=== PATIENT | male | born 1950 | race Caucasian/White ===

== ENCOUNTER 2019-01-06 20:00 | Inpatient (IN) | payer OTHER ==
--- NOTE | 2019-01-06 20:05 | PDOC ---
Rapid Medical Evaluation Time Seen by Provider: 01/06/19 20:03 Medical Evaluation: 01/06/19 20:03 I have performed a brief in-person evaluation of this patient. The patient presents with a chief complaint of: shortness of breath Pertinent physical exam findings:stable and in NAD, non-focal I have ordered the following:labs, ekg The patient will proceed to the ED for further evaluation.
--- NOTE | 2019-01-06 20:26 | PDOC ---
History of Present Illness - General Chief Complaint: Chest Pain Stated Complaint: Chest Pain Time Seen by Provider: 01/06/19 20:03 History Source: Patient - History of Present Illness Initial Comments: 01/06/19 20:41 The patient is a 68 year old male with no reported PMH who presents with 4 month h/o worsening shortness of breath and a two week h/o B/L LE edema. 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 Prior to 4 months ago patient had no significant medical history. Denies any chest pain, lightheadedness, diaphoresis, nausea. Follows with a gear grinding machine operator, Dr. Mitchell ([place]) as his primary and was isntructe to come to our ED becuse Dr. Mitchell is colleagues with Dr. Mai. Also c/o of decreased sleep since symptom onset, sleeps supine with one pillow NKDA Surgical: appendectomy Social: social alcohol, lifetime non-smoker, denies other toxic habits PMD: Dr. Mitchell As per EMR, patient has no prior evaluation in our ED Past History - Past Medical History Allergies/Adverse Reactions: Allergies Allergy/AdvReac Type Severity Reaction Status Date / Time No Known Allergies Allergy Verified 01/06/19 20:07 Home Medications: Ambulatory Orders NK [No Known Home Medication] 01/06/19 COPD: No - Suicide/Smoking/Psychosocial Hx Smoking History: Unknown if ever smoked Have you smoked in the past 12 months: No Information on smoking cessation initiated: No Hx Alcohol Use: No Drug/Substance Use Hx: No Review of Systems - Review of Systems Constitutional: No: Chills, Fever HEENTM: No: Blurred Vision, Recent change in vision Respiratory: Yes: Shortness of Breath. No: Cough, Wheezing Cardiac (ROS): Yes: Palpitations. No: Chest Pain, Lightheadedness, Syncope ABD/GI: No: Constipated, Diarrhea, Nausea, Vomiting *Physical Exam - Vital Signs Last Vital Signs Temp Pulse Resp BP Pulse Ox 98.0 F 61 16 132/88 100 01/06/19 20:04 01/06/19 20:04 01/06/19 20:04 01/06/19 20:04 01/06/19 20:04 - Physical Exam Comments: 05/21/19 21:10 Triage VS reviewed Awake, alert, pleasant HEENT: mild scleral icterus CV: Irregularly irregular Extremity: B/L LE 4+ pitting edema Abdomen: soft, protuberatin, (+) bowel sounds, non-tender Respiratory: CLTA B/L, non-labored respiration on 3 L NC O2 ED Treatment Course - LABORATORY CBC & Chemistry Diagram: 01/09/19 06:19 01/09/19 06:19 Medical Decision Making - Medical Decision Making 01/06/19 21:00 68 year old male with 3 month h/o worsening shortness of breath and two week h/ o B/L LE edema. Reports h/o toxic exposure including termite spray and toxic dehumdifier. AFib with RVR, other VS unremarkable. Mild scleral icterus, hepatosplenomegaly on PE. DDx includes R heart strain vs. new onset CHF vs. r/ o ACS. 01/06/19 21:09 S/p Dilt 130's-140's 01/06/19 21:09 01/06/19 22:10 BNP new onset CHF Trop - likely 2/2 to ischemic demand Cr 1.4 Likely pre-renal 01/06/19 22:28 Case d/w Dr. Meza - will admit Patient @ [facility] 01/06/19 22:58 S/p 10 Dilt, patient remains AFib w/RVR 140's-150's BP 148/106 Will give addition 20 mg Dilt, paged hospitalist for ? Drip and consider unit admission *DC/Admit/Observation/Transfer Diagnosis at time of Disposition: Shortness of breath - Discharge Dispostion Condition at time of disposition: Fair Decision to Admit order: Yes - Referrals - Patient Instructions - Post Discharge Activity
[2019-01-06] MEDS ORDERED: dilTIAZem HCL 50 MG/10 ML - 10 ML VIAL IVPUSH ONE ×2 (20:39→23:00)
[2019-01-06] MEDS ORDERED: dilTIAZem HCL 125 MG/25 ML - 25 ML VIAL ONE (20:45)
[2019-01-06 21:22] LABS: BASO % 0.7 % (0-2.0); EOS % 1.2 % (0-4.5); HEMATOCRIT 40.6 % (35.4-49); HEMOGLOBIN 13.3 GM/dL (11.7-16.9); LYMPH % 21.9 % (8-40); MCH 32.5 pg (25.7-33.7); MCHC 32.8 g/dl (32.0-35.9); MEAN PLT VOLUME 12.2 fl (7.5-11.1); MONO % 11.4 % (3.8-10.2); NEUT % 64.8 % (42.8-82.8); RDW 15.6 % (11.9-15.9); WHITE BLOOD COUNT 6.3 K/mm3 (4.0-10.0)
[2019-01-06 21:35] LABS: INR 1.38 (0.83-1.09); PROTHROMBIN TIME (PATIENT) 16.3 SEC (9.7-13.0)
[2019-01-06 21:38] LABS: ACTIVATED PTT 35.5 SECONDS (25.2-36.5)
[2019-01-06 22:01] LABS: ALBUMIN 3.3 g/dl (3.4-5.0); BILIRUBIN,TOTAL 1.8 mg/dL (0.2-1); CALCIUM 9.1 mg/dL (8.5-10.1); CREATININE 1.4 mg/dL (0.55-1.3); N-TERMINAL BNP 8151.8 pg/ml (5-125); POTASSIUM 4.5 mmol/L (3.5-5.1); TOT PROT 6.8 g/dl (6.4-8.2)
[2019-01-06] MEDS ORDERED: FUROSEMIDE 40 MG/4 ML INJECTABLE VIAL IVPUSH ONE (22:08)
[2019-01-06] MEDS ORDERED: FUROSEMIDE 40 MG/4 ML INJECTABLE VIAL ONE (22:11)
[2019-01-06 22:34] LABS: PLATELET COUNT 141 K/MM3 (134-434)
[2019-01-06 22:35] LABS: PLATELET ESTIMATE ADEQUATE
--- NOTE | 2019-01-06 22:52 | PDOC ---
Documentation entered by Pankaj De La Cruz SCRIBE, acting as scribe for Mirian Horn DO. Mirian Horn DO: This documentation has been prepared by the Jono mckee Matthew, SCRIBE, under my direction and personally reviewed by me in its entirety. I confirm that the documentation accurately reflects all work, treatment, procedures, and medical decision making performed by me. Attending Attestation - Resident Resident Name: Steff Aldana - ED Attending Attestation I have performed the following: I have examined & evaluated the patient, The case was reviewed & discussed with the resident, I agree w/resident's findings & plan - HPI HPI: 01/06/19 21:19 Patient is a 68 year old male with no significant past medical history who presents to the ED with complaints of shortness breath that began x4 months ago. Patient reports experiencing increased shortness of breath shortly after using a home termite hall cleaner followed by a home air purifier that he believed both to be toxic. He reports experiencing associated symptoms of bilateral lower extremity edema that he states began x2 weeks ago. Patient states having no significant past medical history or symptoms prior to termite and air purifier exposure 4 months ago. Follows with a electrical technician, Dr. Mitchell ([place]) as his primary and was instructed to come to the ED for further evaluation because Dr. Mitchell is colleagues with Dr. Serrano. Denies chest pain, sob. Denies nausea, vomiting. Denies contact with sick individuals, out of state travelling. Denies dysuria, hematuria. Denies constipation, diarrhea. Denies any other symptoms. Allergies: NKDA Social history: No smoking. No alcohol. No illicit drugs. Surgical history: None PMD: Dr. Keke Mortensen - Physicial Exam PE: 01/06/19 21:19 Agree with residents Physical Exam. - Critical Care Time Total Critical Care Time: 60 Critical Care Statement: The care of this patient involved high complexity decision making to prevent further life threatening deterioration of the patient 's condition and/or to evaluate & treat vital organ system(s) failure or risk of failure. - Medical Decision Making 01/06/19 22:38 68-year-old male complaining of increasing swelling to the lower extremities as well as shortness of breath and palpitations Patient found to be in a new onset rapid A. fib on arrival Exam and workup consistent with new onset CHF as well Lasix 60 mg IV push given Cardizem 10 mg IV push given with little effect on patient's rate Plan for continued telemetry and rate control as well as admission
[2019-01-06] MEDS ORDERED: METOPROLOL TARTRATE 5 MG/5 ML VIAL IVPUSH ONE (23:07)
[2019-01-06 23:54] LABS: PH,URINE 5.5 (5.0-8.0); URINE APPEARANCE CLEAR; URINE BILIRUBIN NEGATIVE (NEGATIVE); URINE COLOR YELLOW; URINE GLUCOSE (UA) NEGATIVE (NEGATIVE); URINE KETONE NEGATIVE (NEGATIVE); URINE LEUK ESTERASE NEGATIVE (NEGATIVE); URINE NITRITE NEGATIVE (NEGATIVE); URINE PROTEIN NEGATIVE (NEGATIVE); URINE UROBILINOGEN 0.2 mg/dL (0.2-1.0)
--- NOTE | 2019-01-07 00:18 | PN ---
Teaching Attending Note Name of Resident: Markell Meza ATTENDING PHYSICIAN STATEMENT I saw and evaluated the patient. I reviewed the resident's note and discussed the case with the resident. I agree with the resident's findings and plan as documented. SUBJECTIVE: Seen and examined; please refer to resident note for further historical information. He has a history of erratic heart beat and "valve issue" but does not know what valve and has never been on rate control or AC. Sent in by PCP due to large LE edema and jaundice. He has no history of heart failure. He is near anasarcic with worsening abdominal distention for the past 2+ weeks and was found to be in Afib with RVR to the 150s. ER gave lasix, diltiazem, called medicine for admission. HR has proven difficult to control. 10 sys ROS done and negative aside from HPI PMH, PSH, FH, SH reviewed Home Medications Medication Instructions Recorded NK [No Known Home Medication] 01/06/19 OBJECTIVE: VS, labs, imaging reviewed NAD, AAO, resting comfortably in bed Irregularly irregular with tachycardia and systolic murmur noted Near anasarca with pitting edema sym b/l Distended abdomen, NT, +BS Lungs with crackles throughout lower half, w/ sym exp CN2-12 wnl, no fnd Normal mood, appropriate behavior Echo Pending CXR with cardiomegaly and stereotyped CHF changes US abd pending EKG with Afib with RVR, potential Q waves V1 V2 V3 ER completed bedside echo; no effusion ASSESSMENT AND PLAN: Patient presents to the ER with new-onset CHF and Afib with RVR; has history of valve issue and was told that he had afib years ago but was not treated. 1) New-onset CHF -Etiology may be valvular given his history but Q waves noted on initial EKG over anteroseptal leads; need to check echo to elucidate the nature of his CHF. With possibility of CAD will check TSH/A1c/B12 as well. He has never had a cath , etc. -Lasix IV 40 BID; holding off on SHANNAN for now until EF is known, etc.. He is on BB for his Afib (MT which can be converted to MS for GDMT prior to DC). -Fluid and salt restriction; optimize K and Mg. Strict Is and Os and QD weights. -Cardiology consulted; appreciate expert opinion. 2) Atrial fibrillation -CHADSVASC is 2 and HAS-BLED is 1; endorses use of AC. Will do lovenox and followup on echo; he has a possibility of this being valvular afib so PO agent choice should reflect that. Monitor CrCl given FRANKIE (CrCl >30 with 1.4 Cr) -Stop diltiazem given evidence of systolic dysfunction; will use IV metoprolol tartrate to control HR. Pushing 5 now and will start with 25 PO BID and titrate up as needed. -Followup cardiology recs 3) Elevated bilirubin, mild jaundice -Checking liver US; suspect congestion could be playing a role. Fractionate bilirubin and trend CMP. -Normal AST/ALT with slight elevation of alk phos. He denies drinking and states he had a negative hepatitis test some time ago (can recheck). No abdominal pain. Check GGT and followup duct size. -Low alb noted 4) Troponemia -No chest pain or sudden onset SOB; less likely ACS and more likely rate- related subendocardial ischemia. -Trend. Followup CV recs. On tele. 5) FRANKIE -Baseline unknown but no documented hx CKD. 1.4 Cr today; given his history with 2 weeks of worsening massive fluid overload I am suspicious of potential Type I Cardiorenal syndrome. He needs diuresis for his CHF so will monitor renal function closely. If improves with diuresis would imply congestive process. -Check FeUrea (no urine obtained prior to lasix dose) 6) Low albumin -Checking prealbumin 7) Distended Abd -I suspect ascites; confirm with US and consider dx para Full Code
--- NOTE | 2019-01-07 00:36 | HP ---
CHIEF COMPLAINT: PCP: Dr. Mitchell HISTORY OF PRESENT ILLNESS: Patient is a 68 yo M with a PMHx with a history of an "erratic heart beat" and "valve issue, presented to the ED because of worsening SOB for 4 months and B/L LE edema over the last 2 weeks. Prior to 4 months ago, patient says he was normal with no issues. He denies a history of CHF. He says he was never on any rate control or anticoagulation. He went to his PCP, Dr. Mitchell, for the edema and yellowing of skin, who sent him to [facility] for admission. In the ER he was found to be in Afib with RVR in the 150s. He was given 60mg of Lasix, total 30mg of Diltiazem with some improvement in HR. CXR revealed cardiomegaly, diffuse pulmonary congestion and possible pleural effusions. He currently denies chest pain, pain, dizziness, headaches, headaches, fevers, chills, cough, urinary changes. Recent Travel: denies PAST MEDICAL HISTORY: per HPI Social History: Smoking: nonsmoker Alcohol: occasionally Drugs: denies Family History: Says he has a family history of heart valve issues including daughter who had surgery at a young age. Allergies No Known Allergies Allergy (Verified 01/06/19 20:07) HOME MEDICATIONS: Home Medications Medication Instructions Recorded NK [No Known Home Medication] 01/06/19 REVIEW OF SYSTEMS CONSTITUTIONAL: Absent: fever, chills, diaphoresis, generalized weakness, malaise, loss of appetite, weight change HEENT: Absent: rhinorrhea, nasal congestion, throat pain, throat swelling, difficulty swallowing, mouth swelling, ear pain, eye pain, visual changes CARDIOVASCULAR: peripheral edema Absent: chest pain, syncope, palpitations, irregular heart rate, lightheadedness RESPIRATORY: sob, dyspnea with exertion Absent: cough, orthopnea, wheezing, stridor, hemoptysis GASTROINTESTINAL: Absent: abdominal pain, abdominal distension, nausea, vomiting, diarrhea, constipation, melena, hematochezia GENITOURINARY: Absent: dysuria, frequency, urgency, hesitancy, hematuria, flank pain, genital pain MUSCULOSKELETAL: Absent: myalgia, arthralgia, joint swelling, back pain, neck pain SKIN: Absent: rash, itching, pallor HEMATOLOGIC/IMMUNOLOGIC: Absent: easy bleeding, easy bruising, lymphadenopathy, frequent infections ENDOCRINE: Absent: unexplained weight gain, unexplained weight loss, heat intolerance, cold intolerance NEUROLOGIC: Absent: headache, focal weakness or paresthesias, dizziness, unsteady gait, seizure, mental status changes, bladder or bowel incontinence PSYCHIATRIC: Absent: anxiety, depression, suicidal or homicidal ideation, hallucinations. PHYSICAL EXAMINATION Vital Signs - 24 hr 01/06/19 01/06/19 01/06/19 20:04 21:36 21:49 Temperature 98.0 F Pulse Rate 61 Pulse Rate [ 120 H 110 H Apical] Respiratory 16 20 20 Rate Blood Pressure 132/88 Blood Pressure 126/58 L 107/88 [Left Arm] O2 Sat by Pulse 95 95 Oximetry (%) 01/06/19 23:59 Temperature Pulse Rate Pulse Rate [ Apical] Respiratory Rate Blood Pressure Blood Pressure 113/96 [Left Arm] O2 Sat by Pulse Oximetry (%) GENERAL: obese in NAD, comfortable HEAD: Normal with no signs of trauma. EYES: mild scleral icterus EARS, NOSE, THROAT: oropharynx clear without exudates. Moist mucous membranes. NECK:supple without lymphadenopathy, JVD, or masses. LUNGS: diffuse crackles in b/l lower lobes HEART: irregular rhythm, + systolic murmur ABDOMEN: obese, distended abdomen, NT EXTREMITIES: 2+ pulses, 3+ pitting edema b/l LE. near anasarca NEUROLOGICAL: Cranial nerves II-XII intact. Normal speech. Normal gait. PSYCHIATRIC: Cooperative. Good eye contact. Appropriate mood and affect. Laboratory Results - last 24 hr 01/06/19 01/06/19 01/06/19 20:34 20:34 20:34 WBC 6.3 RBC 4.10 Hgb 13.3 Hct 40.6 MCV 99.0 H MCH 32.5 MCHC 32.8 RDW 15.6 Plt Count 141 MPV 12.2 H Absolute Neuts (auto) 4.1 Neutrophils % 64.8 Lymphocytes % 21.9 Monocytes % 11.4 H Eosinophils % 1.2 Basophils % 0.7 Nucleated RBC % 0 Platelet Estimate Adequate Platelet Comment No clumping noted PT with INR 16.30 H INR 1.38 H PTT (Actin FS) 35.5 Sodium 139 Potassium 4.5 Chloride 107 Carbon Dioxide 24 Anion Gap 8 BUN 23 H Creatinine 1.4 H Est GFR (CKD-EPI)AfAm 59.41 Est GFR (CKD-EPI)NonAf 51.26 Random Glucose 93 Calcium 9.1 Total Bilirubin 1.8 H AST 24 ALT 27 Alkaline Phosphatase 124 H Creatine Kinase Troponin I B-Natriuretic Peptide 8151.8 H Total Protein 6.8 Albumin 3.3 L 01/06/19 20:34 WBC RBC Hgb Hct MCV MCH MCHC RDW Plt Count MPV Absolute Neuts (auto) Neutrophils % Lymphocytes % Monocytes % Eosinophils % Basophils % Nucleated RBC % Platelet Estimate Platelet Comment PT with INR INR PTT (Actin FS) Sodium Potassium Chloride Carbon Dioxide Anion Gap BUN Creatinine Est GFR (CKD-EPI)AfAm Est GFR (CKD-EPI)NonAf Random Glucose Calcium Total Bilirubin AST ALT Alkaline Phosphatase Creatine Kinase 117 Troponin I 0.12 H B-Natriuretic Peptide Total Protein Albumin ASSESSMENT/PLAN: 68 yo M with a PMHx with a history of an "erratic heart beat" and "valve issue, presented to the ED because of worsening SOB and edema admitted for Chf and a- fib. #New Onset CHF -CXR with pulmonary congestion and cardiomegaly -1x Lasix 60mg given in ED -Continue Lasix 40mg BID IV -Cardio consulted: Dr. Serrano -Echo -obtain records from PCP in AM -Etiology may be valvular given his history. -EKG with Afib with RVR, potential Q waves V1 V2 V3 (anteroseptal leads) -strict i/o's, daily weight -Fluid and salt restriction #A-fib -Chadvasc 2, Has-bled 1 -start lovenox 110mg BID for AC until echo completed and read -Follow up echo. -Start Lopressor 25mg BID -Give lopressor 5mg IV as needed -Stop Diltiazem, given this may be systolic dysfunction. #Elevated bilirubin/Jaundice -likely congestion from new CHF -FU RUQ U/S -FU GGT, fractionated bilirubin -denies drinking. #Tropinemia -no chest pain, or sudden SOB, less likely ACS -likely demand -will order 2nd set -Tele #FRANKIE -unknown baseline -Today 1.4 -Likely cardiorenal syndrome if acute. -IV lasix 40mg BID -Urine lytes, urea -monitor cr #Hypoalbuminemia -FU prealbumin #FEN -fluid restrict -monitor -sodium diet #DVT ppx -lovenox dispo: tele Visit type - Emergency Visit Emergency Visit: Yes ED Registration Date: 01/07/19 Care time: The patient presented to the Emergency Department on the above date and was hospitalized for further evaluation of their emergent condition. - New Patient This patient is new to me today: Yes Date on this admission: 01/08/19 - Critical Care Critical Care patient: No
[2019-01-07] MEDS ORDERED: ENOXAPARIN NA (PORCINE) 100 MG/1 ML DISP.SYRIN SQ ONE (01:11)
[2019-01-07] MEDS ORDERED: METOPROLOL TARTRATE 25 MG TABLET (FP) ONE ×2 (01:11→22:16)
[2019-01-07] MEDS: ENOXAPARIN NA (PORCINE) 120 MG/0.8 ML DISP.SYRIN SQ SCH ×2 (01:16→09:57)
[2019-01-07] MEDS: METOPROLOL TARTRATE 25 MG TABLET (FP) PO SCH ×4 (01:16→22:20)
[2019-01-07] MEDS ORDERED: FUROSEMIDE 40 MG/4 ML INJECTABLE VIAL ONE (06:24)
[2019-01-07] MEDS: FUROSEMIDE 40 MG/4 ML INJECTABLE VIAL IVPUSH SCH ×2 (06:27→14:49)
[2019-01-07 06:44] LABS: BASO % 0.8 % (0-2.0); EOS % 1.7 % (0-4.5); HEMATOCRIT 41.5 % (35.4-49); LYMPH % 20.6 % (8-40); MCH 32.9 pg (25.7-33.7); MCHC 33.7 g/dl (32.0-35.9); MEAN CELL VOLUME 97.6 fl (80-96); MEAN PLT VOLUME 11.3 fl (7.5-11.1); MONO % 11.3 % (3.8-10.2); NEUT % 65.6 % (42.8-82.8); PLATELET COUNT 142 K/MM3 (134-434); RBC 4.25 M/mm3 (4.00-5.60); RDW 15.9 % (11.9-15.9); WHITE BLOOD COUNT 6.7 K/mm3 (4.0-10.0)
[2019-01-07 07:20] LABS: ALBUMIN 3.5 g/dl (3.4-5.0); BILIRUBIN,TOTAL 2.1 mg/dL (0.2-1); CALCIUM 9.1 mg/dL (8.5-10.1); CREATININE 1.3 mg/dL (0.55-1.3); PHOSPHOROUS 4.5 mg/dL (2.5-4.9); POTASSIUM 3.9 mmol/L (3.5-5.1); TOT PROT 7.1 g/dl (6.4-8.2)
[2019-01-07] MEDS ORDERED: METOPROLOL TARTRATE 5 MG/5 ML VIAL IVPUSH PRN (08:50)
--- NOTE | 2019-01-07 11:03 | CON.CARD ---
Consult Consult Specialty:: Cardiology Referred by:: Hospitalist Reason for Consultation:: Cardiac evaluation - History of Present Illness Chief Complaint: Shortness of breath History of Present Illness: Patient is a 68 year old male with no significant PMH that he is reporting who presents to [facility] referred by his PMD (Al Mortensen MD in [place]) for evaluation of shortness of breath. 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 He states that he was asymptomatic 4 months ago, but lately it has gotten worse. He denies chest pain, but complains of intermittent palpitations. ECG and monitor reveals atrial fibrillation with RVR at 120-130 bpm. He denies paroxysmal nocturnal dyspnea or orthopnea. He denies fever or chills. He denies nausea, vomiting, diarrhea or abdominal pain. He denies headache or lightheadedness. - History Source History Provided By: Patient, Medical Record Limitations to Obtaining History: No Limitations - Alcohol/Substance Use Hx Alcohol Use: No History of Substance Use: reports: None - Smoking History Smoking history: Unknown if ever smoked Have you smoked in the past 12 months: No Home Medications - Allergies Allergies/Adverse Reactions: Allergies Allergy/AdvReac Type Severity Reaction Status Date / Time No Known Allergies Allergy Verified 01/06/19 20:07 - Home Medications Home Medications: Ambulatory Orders NK [No Known Home Medication] 01/06/19 Family Disease History - Family Disease History Other Family History: ? history of heart valve surgery Review of Systems - Review of Systems Constitutional: denies: Chills, Fever Cardiovascular: reports: Palpitations, Shortness of Breath. denies: Chest Pain Respiratory: reports: SOB, SOB on Exertion. denies: Cough, Hemoptysis, Orthopnea, PND, Wheezing Gastrointestinal: denies: Abdominal Pain, Constipation, Diarrhea, Melena, Nausea , Rectal Bleeding, Vomiting Genitourinary: denies: Dysuria, Hematuria Musculoskeletal: denies: Back Pain, Joint Pain Neurological: denies: Dizziness, Headache, Seizure, Syncope Vital Signs: Vital Signs Temperature 98.0 F 01/06/19 20:04 Pulse Rate 103 H 01/07/19 04:47 Respiratory Rate 01/07/19 02:00 Blood Pressure 110/82 01/07/19 04:47 O2 Sat by Pulse Oximetry (%) 100 01/07/19 04:47 Eyes: Yes: PERRL HENT: Yes: Atraumatic Neck: Yes: Supple Respiratory: Yes: Diminished Gastrointestinal: Yes: Normal Bowel Sounds, Soft. No: Tenderness Cardiovascular: Yes: Tachycardia, Pulse Irregular JVD: No PMI: Non-Displaced Heart Sounds: Yes: S1, S2. No: Gallop Murmur: Yes: Systolic Murmur, Grade 1 Edema: No - Other Data Labs, Other Data: CBC, BMP 01/07/19 06:00 01/07/19 06:00 INR, PTT INR 1.38 (0.83-1.09) H 01/06/19 20:34 Troponin, BNP 01/06/19 01/06/19 01/07/19 20:34 20:34 02:46 Troponin I 0.12 H 0.15 H B-Natriuretic Peptide 8151.8 H Laboratory Results - last 24 hr 01/07/19 01/08/19 01/08/19 19:45 05:30 05:30 PTT (Actin FS) 70.6 H 63.8 H Sodium 142 Potassium 3.3 L Chloride 106 Carbon Dioxide 28 Anion Gap 8 BUN 20 H Creatinine 1.2 Est GFR (CKD-EPI)AfAm 71.58 Est GFR (CKD-EPI)NonAf 61.76 Random Glucose 74 Calcium 8.4 L Phosphorus 4.5 Magnesium 2.1 Atrial fibrillation with PVCs Echo: Pending Imaging - Results Chest X-ray: Report Reviewed (Pulmonary congestion) Ultrasound: Report Reviewed (No DVT) EKG: Report Reviewed Problem List - Problems (1) Atrial fibrillation Code(s): I48.91 - UNSPECIFIED ATRIAL FIBRILLATION Qualifiers: Atrial fibrillation type: unspecified Qualified Code(s): I48.91 - Unspecified atrial fibrillation (2) Dyspnea Code(s): R06.00 - DYSPNEA, UNSPECIFIED Qualifiers: Dyspnea type: unspecified Qualified Code(s): R06.00 - Dyspnea, unspecified (3) CHF (congestive heart failure) Code(s): I50.9 - HEART FAILURE, UNSPECIFIED Qualifiers: Heart failure type: unspecified Heart failure chronicity: unspecified Qualified Code(s): I50.9 - Heart failure, unspecified Assessment/Plan 1. Dyspnea due to CHF and pleural effusion +/- reactive airway disease 2. Acute on chronic LV systolic +/- diastolic failure 3. AF with RVR PLAN: 1. Would give IV Heparin (protocol) and then eventually start oral anticoagulant. Suggest Eliquis 5 mg BID 2. Beta melanie - Metoprolol Tartrate to be uptitrated for rate control 3. Echocardiography to assess LV/RV and valvular function 4. If patient remains in AF, may consider LISANDRA guided synchronized cardioversion 5. Further cardiac work up to follow pending above echocardiography result Further plans are to follow Francisco Martínez MD
[2019-01-07] MEDS ORDERED: HEPARIN NA (PORCINE) 5,000 UNITS/ML 1ML VIAL IVPUSH PRN ×2 (11:04)
[2019-01-07 11:06] LABS: BILIRUBIN,DIRECT 0.5 mg/dL (0.0-0.2)
[2019-01-07] MEDS ORDERED: HEPARIN INFUSION - 25,000 UNITS/500 ML INFUS.BAG IVPB ONE (11:44)
[2019-01-07] MEDS: HEPARIN INFUSION - 25,000 UNITS/500 ML INFUS.BAG IVPB SCH (11:50)
--- NOTE | 2019-01-07 12:58 | EKG ---
Test Reason : Blood Pressure : / mmHG Vent. Rate : 153 BPM Atrial Rate : 125 BPM P-R Int : 000 ms QRS Dur : 088 ms QT Int : 312 ms P-R-T Axes : 000 -24 097 degrees QTc Int : 498 ms ATRIAL FIBRILLATION WITH RAPID VENTRICULAR RESPONSE WITH PREMATURE VENTRICULAR OR ABERRANTLY CONDUCTED COMPLEXES SEPTAL INFARCT , AGE UNDETERMINED ABNORMAL ECG NO PREVIOUS ECGS AVAILABLE Confirmed by ANDREAS JJ MD ([id number]) on 01/07/2019 12:57:37 PM Referred By: Confirmed By:ANDREAS JJ MD
--- NOTE | 2019-01-07 15:08 | PN ---
Physical Exam: SUBJECTIVE: Patient seen and examined. Pt. denies chest pain. Pt. endorses difficulty breathing that has been getting progressively worse for 3 months. Pt. states he sleeps with 2 pillows and feels short of breath after climbing 1 flight of stairs. Pt. states the swelling in his lower extremities started 15 days ago. Pt. states the jaundice started around the same time. Pt. states the jaundice has happened before when he was 15 which self resolved. OBJECTIVE: Vital Signs Period Temp Pulse Resp BP Sys/Vivas Pulse Ox Last 24 Hr 98.0 F 61-120 16-20 102-132/58-96 95-100 GENERAL: The patient is awake, alert, and fully oriented, in no acute distress. HEAD: Normal with no signs of trauma. EYES: Extraocular movements intact, scleral ictericus, conjunctiva clear. ENT: Ears normal, nares patent, oropharynx clear without exudates, moist mucous membranes. NECK: Trachea midline, full range of motion, supple. LUNGS: Breath sounds equal, clear to auscultation bilaterally, no wheezes, no crackles, no accessory muscle use. HEART: Irregular rate and rhythm, S1, S2 without murmur ABDOMEN: Soft, nontender, nondistended, normoactive bowel sounds, no guarding, no rebound, no hepatosplenomegaly, no masses. EXTREMITIES: 2+ dorsal pedal pulses, warm, no calf tenderness, no calf tenderness, well-perfused, 3+ edema. NEUROLOGICAL: Normal speech, gait not observed. PSYCH: Normal mood, normal affect. SKIN: Slightly yellow, Warm, dry, normal turgor, Laboratory Results - last 24 hr 01/06/19 01/06/19 01/06/19 20:34 20:34 20:34 WBC 6.3 RBC 4.10 Hgb 13.3 Hct 40.6 MCV 99.0 H MCH 32.5 MCHC 32.8 RDW 15.6 Plt Count 141 MPV 12.2 H Absolute Neuts (auto) 4.1 Neutrophils % 64.8 Lymphocytes % 21.9 Monocytes % 11.4 H Eosinophils % 1.2 Basophils % 0.7 Nucleated RBC % 0 Platelet Estimate Adequate Platelet Comment No clumping noted PT with INR 16.30 H INR 1.38 H PTT (Actin FS) 35.5 Sodium 139 Potassium 4.5 Chloride 107 Carbon Dioxide 24 Anion Gap 8 BUN 23 H Creatinine 1.4 H Est GFR (CKD-EPI)AfAm 59.41 Est GFR (CKD-EPI)NonAf 51.26 Random Glucose 93 Hemoglobin A1c % Calcium 9.1 Phosphorus Magnesium Total Bilirubin 1.8 H Direct Bilirubin GGT AST 24 ALT 27 Alkaline Phosphatase 124 H Creatine Kinase Troponin I B-Natriuretic Peptide 8151.8 H Total Protein 6.8 Albumin 3.3 L Prealbumin Triglycerides Cholesterol Total LDL Cholesterol HDL Cholesterol Vitamin B12 TSH Free T4 Urine Color Urine Appearance Urine pH Ur Specific [place] Urine Protein Urine Glucose (UA) Urine Ketones Urine Blood Urine Nitrite Urine Bilirubin Urine Urobilinogen Ur Leukocyte Esterase Ur Random Sodium Ur Random Potassium Ur Random Chloride 01/06/19 01/06/19 01/07/19 20:34 23:37 02:46 WBC RBC Hgb Hct MCV MCH MCHC RDW Plt Count MPV Absolute Neuts (auto) Neutrophils % Lymphocytes % Monocytes % Eosinophils % Basophils % Nucleated RBC % Platelet Estimate Platelet Comment PT with INR INR PTT (Actin FS) Sodium Potassium Chloride Carbon Dioxide Anion Gap BUN Creatinine Est GFR (CKD-EPI)AfAm Est GFR (CKD-EPI)NonAf Random Glucose Hemoglobin A1c % Calcium Phosphorus Magnesium Total Bilirubin Direct Bilirubin GGT AST ALT Alkaline Phosphatase Creatine Kinase 117 Troponin I 0.12 H 0.15 H B-Natriuretic Peptide Total Protein Albumin Prealbumin Triglycerides Cholesterol Total LDL Cholesterol HDL Cholesterol Vitamin B12 TSH Free T4 Urine Color Yellow Urine Appearance Clear Urine pH 5.5 Ur Specific [place] 1.006 L Urine Protein Negative Urine Glucose (UA) Negative Urine Ketones Negative Urine Blood Negative Urine Nitrite Negative Urine Bilirubin Negative Urine Urobilinogen 0.2 Ur Leukocyte Esterase Negative Ur Random Sodium Ur Random Potassium Ur Random Chloride 01/07/19 01/07/19 01/07/19 02:46 02:46 06:00 WBC 6.7 RBC 4.25 Hgb 14.0 Hct 41.5 MCV 97.6 H MCH 32.9 MCHC 33.7 RDW 15.9 Plt Count 142 MPV 11.3 H Absolute Neuts (auto) 4.4 Neutrophils % 65.6 Lymphocytes % 20.6 Monocytes % 11.3 H Eosinophils % 1.7 Basophils % 0.8 Nucleated RBC % 0 Platelet Estimate Platelet Comment PT with INR INR PTT (Actin FS) Sodium Potassium Chloride Carbon Dioxide Anion Gap BUN Creatinine Est GFR (CKD-EPI)AfAm Est GFR (CKD-EPI)NonAf Random Glucose Hemoglobin A1c % Calcium Phosphorus Magnesium Total Bilirubin Direct Bilirubin GGT 185 H AST ALT Alkaline Phosphatase Creatine Kinase Troponin I B-Natriuretic Peptide Total Protein Albumin Prealbumin 13.9 L Triglycerides Cholesterol Total LDL Cholesterol HDL Cholesterol Vitamin B12 TSH Free T4 Urine Color Urine Appearance Urine pH Ur Specific [place] Urine Protein Urine Glucose (UA) Urine Ketones Urine Blood Urine Nitrite Urine Bilirubin Urine Urobilinogen Ur Leukocyte Esterase Ur Random Sodium Ur Random Potassium Ur Random Chloride 01/07/19 01/07/19 01/07/19 06:00 06:00 07:00 WBC RBC Hgb Hct MCV MCH MCHC RDW Plt Count MPV Absolute Neuts (auto) Neutrophils % Lymphocytes % Monocytes % Eosinophils % Basophils % Nucleated RBC % Platelet Estimate Platelet Comment PT with INR INR PTT (Actin FS) Sodium 140 Potassium 3.9 Chloride 107 Carbon Dioxide 23 Anion Gap 10 BUN 20 H Creatinine 1.3 Est GFR (CKD-EPI)AfAm 64.98 Est GFR (CKD-EPI)NonAf 56.06 Random Glucose 73 L Hemoglobin A1c % 5.4 Calcium 9.1 Phosphorus 4.5 Magnesium 2.0 Total Bilirubin 2.1 H Direct Bilirubin GGT AST 21 ALT 26 Alkaline Phosphatase 127 H Creatine Kinase Troponin I B-Natriuretic Peptide Total Protein 7.1 Albumin 3.5 Prealbumin Triglycerides 75 Cholesterol 136 Total LDL Cholesterol 106 H HDL Cholesterol 28 L Vitamin B12 585 TSH 4.19 H Free T4 Urine Color Urine Appearance Urine pH Ur Specific [place] Urine Protein Urine Glucose (UA) Urine Ketones Urine Blood Urine Nitrite Urine Bilirubin Urine Urobilinogen Ur Leukocyte Esterase Ur Random Sodium 103 Ur Random Potassium 11.1 L Ur Random Chloride 117 01/07/19 10:10 WBC RBC Hgb Hct MCV MCH MCHC RDW Plt Count MPV Absolute Neuts (auto) Neutrophils % Lymphocytes % Monocytes % Eosinophils % Basophils % Nucleated RBC % Platelet Estimate Platelet Comment PT with INR INR PTT (Actin FS) Sodium Potassium Chloride Carbon Dioxide Anion Gap BUN Creatinine Est GFR (CKD-EPI)AfAm Est GFR (CKD-EPI)NonAf Random Glucose Hemoglobin A1c % Calcium Phosphorus Magnesium Total Bilirubin Direct Bilirubin 0.5 H GGT AST ALT Alkaline Phosphatase Creatine Kinase 77 Troponin I 0.09 H B-Natriuretic Peptide Total Protein Albumin Prealbumin Triglycerides Cholesterol Total LDL Cholesterol HDL Cholesterol Vitamin B12 TSH Free T4 1.31 H Urine Color Urine Appearance Urine pH Ur Specific [place] Urine Protein Urine Glucose (UA) Urine Ketones Urine Blood Urine Nitrite Urine Bilirubin Urine Urobilinogen Ur Leukocyte Esterase Ur Random Sodium Ur Random Potassium Ur Random Chloride Active Medications Home Medications Medication Instructions Recorded NK [No Known Home Medication] 01/06/19 Current Medications Furosemide (Lasix Injection -) 40 mg IVPUSH BIDLASIX [facility] Last Admin: 01/07/19 14:49 Dose: 40 mg Heparin Sodium (Porcine) (Heparin -) 1,000 unit IVPUSH PRN PRN PRN Reason: Heparin Heparin Sodium (Porcine) (Heparin -) 5,000 unit IVPUSH PRN PRN PRN Reason: Heparin Heparin Sodium/Dextrose (Heparin Infusion -) 25,000 units in 500 mls @ 20 mls/ hr IVPB TITR ADA; Protocol Last Admin: 01/07/19 11:50 Dose: 1,000 units/hr, 20 mls/hr Metoprolol Tartrate (Lopressor Injection -) 5 mg IVPUSH Q4H PRN PRN Reason: TACHYCARDIA Metoprolol Tartrate (Lopressor -) 25 mg PO TID [facility] Last Admin: 01/07/19 14:49 Dose: 25 mg ASSESSMENT/PLAN: 68 yo M with a PMHx with a history of an "erratic heart beat" and "valve issue, presented to the ED because of worsening SOB and edema admitted for CHF and AFib. #New Onset CHF CXR with pulmonary congestion and cardiomegaly 1x Lasix 60mg given in ED Continue Lasix 40mg BID IV Cardio consulted: Dr. Serrano f/u Echo obtain records from PCP in AM Etiology may be valvular given his history. EKG with Afib with RVR, potential Q waves V1 V2 V3 (anteroseptal leads) strict i/o's, daily weight Fluid and salt restriction #New onset A-fib Chadvasc 2, Has-bled 1 started Heparin Drip d/c Lovenox F/u echo. c/w Lopressor 25mg TID Give lopressor 5mg IV as needed #Elevated bilirubin/Jaundice likely congestion from new CHF RUQ shows large left renal upper pole exophytic cyst 12.4 x 7.9 cm w/ internal echoes and questionable thin septation, small left exophytic cyst 2.9 cm, No biliary obstruction ovserved GGT: 185, TBili:1.8--> 2.1 (D. 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 #Tropinemia no chest pain, or sudden SOB, less likely ACS likely demand Trop: 0.12-->0.15 c/w trend until peak #FRANKIE unknown baseline Cr. 1.4--> 1.3 Likely cardiorenal syndrome if acute. c/w IV lasix 40mg BID f/u Urine lytes, urea #FEN 1L Fluid restriction monitor electrolytes and replete as needed sodium restricted diet #DVT Ppx. Heparin Drip Visit type - Emergency Visit Emergency Visit: Yes ED Registration Date: 01/07/19 Care time: The patient presented to the Emergency Department on the above date and was hospitalized for further evaluation of their emergent condition. - New Patient This patient is new to me today: Yes Date on this admission: 01/07/19 - Critical Care Critical Care patient: No - Discharge Referral Referred to [facility] Med [facility].: No
--- NOTE | 2019-01-07 16:22 | ECHO ---
Name: ADELINE JENNINGS Exam:Adult Echocardiogram Study Date: 01/07/2019 11:57 AM Age: 68 yrs Reason For Study: NEW CHF ATRIAL FIBRILLATION Height: 61 in Weight: 253 lb BSA: 2.1 m2 MMode/2D Measurements & Calculations IVSd: 0.92 cm Ao root diam: 2.9 cm LVIDd: 6.1 cm LA dimension: 4.7 cm LVIDs: 5.3 cm LVPWd: 0.92 cm EDV(Teich): 184.9 ml LVOT diam: 2.2 cm ESV(Teich): 134.3 ml Doppler Measurements & Calculations MV E max serafin: 62.7 cm/sec Ao V2 max: 165.0 cm/sec MV A max serafin: 49.9 cm/sec Ao max P.4 mmHg MV E/A: 1.3 Ao V2 mean: 122.8 cm/sec MV dec time: 0.13 sec Ao mean P.0 mmHg Ao V2 VTI: 26.5 cm BENEDICT(I,D): 1.3 cm2 AI P1/2t: 341.4 msec BENEDICT(V,D): 1.3 cm2 AI max serafin: 271.5 cm/sec LV V1 max P.3 mmHg AI max P.5 mmHg LV V1 mean P.75 mmHg AI dec slope: 232.9 cm/sec2 LV V1 max: 56.5 cm/sec LV V1 mean: 39.8 cm/sec LV V1 VTI: 8.8 cm MR max serafin: 423.5 cm/sec SV(LVOT): 34.5 ml MR max P.8 mmHg TR max serafin: 255.6 cm/sec Med Peak E' Serafin: 5.3 cm/sec TR max P.2 mmHg Med E/e': 11.9 Lat Peak E' Serafin: 6.2 cm/sec Lat E/e': 10.0 Procedure A two-dimensional transthoracic echocardiogram with color flow and Doppler was performed. Left Ventricle The left ventricle is mildly dilated. Left ventricular systolic function is severely reduced. There i s severe global hypokinesis of the left ventricle. Right Ventricle The right ventricle is not well visualized. Atria The left atrium is moderately dilated. The right atrium is moderately dilated. The atrial septum is aneurysmal. Mitral Valve There is mild mitral valve thickening. There is no mitral valve stenosis. There is severe mitral regurgitation. Tricuspid Valve There is mild tricuspid valve thickening. There is no tricuspid stenosis. There is moderate tricuspid regurgitation. Right ventricular systolic pressure is elevated at 30-40mmHg. Aortic Valve The aortic valve is trileaflet. There is mild to moderate aortic valve thickening. There is mild aort ic sclerosis.;. No hemodynamically significant valvular aortic stenosis. Mild aortic regurgitation. Pulmonic Valve The pulmonic valve is not well visualized. Great Vessels The aortic root is normal size. Pericardium/Pleura There is no pericardial effusion. Interpretation Summary The left ventricle is mildly dilated. Left ventricular systolic function is severely reduced. There is severe global hypokinesis of the left ventricle. There is severe mitral regurgitation. There is mild to moderate aortic valve thickening. There is mild aortic sclerosis.; The right ventricle is not well visualized. The left atrium is moderately dilated. The right atrium is moderately dilated. There is moderate tricuspid regurgitation. Right ventricular systolic pressure is elevated at 30-40mmHg. The atrial septum is aneurysmal. Mild aortic regurgitation. MD Filiberto Uriarte 01/07/2019 04:21 PM
--- NOTE | 2019-01-07 19:35 | PN ---
Teaching Attending Note Name of Resident: Joel Asif ATTENDING PHYSICIAN STATEMENT I saw and evaluated the patient. I reviewed the resident's note and discussed the case with the resident. I agree with the resident's findings and plan as documented. SUBJECTIVE: Feels less SOB. No CP/palpitations/Cough/Sputum/fever/chills. OBJECTIVE: Afebrile, hemodynamcially Stable. Last Vital Signs Temp Pulse Resp BP Pulse Ox 98.0 F 112 H 16 97/81 96 01/06/19 20:04 01/07/19 17:56 01/07/19 17:56 01/07/19 17:56 01/07/19 17:56 HEENT - Atraumatic, Normocephalic. Heart - S1, S2, SM Lungs - bibasal crackles/reduced air entry Abdomen - Soft, non-tender. Bowel Sounds normal. Extremities - bilateral LE edema. Laboratory Results - last 24 hr 01/06/19 01/06/19 01/06/19 20:34 20:34 20:34 WBC 6.3 RBC 4.10 Hgb 13.3 Hct 40.6 MCV 99.0 H MCH 32.5 MCHC 32.8 RDW 15.6 Plt Count 141 MPV 12.2 H Absolute Neuts (auto) 4.1 Neutrophils % 64.8 Lymphocytes % 21.9 Monocytes % 11.4 H Eosinophils % 1.2 Basophils % 0.7 Nucleated RBC % 0 Platelet Estimate Adequate Platelet Comment No clumping noted PT with INR 16.30 H INR 1.38 H PTT (Actin FS) 35.5 Sodium 139 Potassium 4.5 Chloride 107 Carbon Dioxide 24 Anion Gap 8 BUN 23 H Creatinine 1.4 H Est GFR (CKD-EPI)AfAm 59.41 Est GFR (CKD-EPI)NonAf 51.26 Random Glucose 93 Hemoglobin A1c % Calcium 9.1 Phosphorus Magnesium Total Bilirubin 1.8 H Direct Bilirubin GGT AST 24 ALT 27 Alkaline Phosphatase 124 H Creatine Kinase Troponin I B-Natriuretic Peptide 8151.8 H Total Protein 6.8 Albumin 3.3 L Prealbumin Triglycerides Cholesterol Total LDL Cholesterol HDL Cholesterol Vitamin B12 TSH Free T4 Urine Color Urine Appearance Urine pH Ur Specific [place] Urine Protein Urine Glucose (UA) Urine Ketones Urine Blood Urine Nitrite Urine Bilirubin Urine Urobilinogen Ur Leukocyte Esterase Ur Random Sodium Ur Random Potassium Ur Random Chloride 01/06/19 01/06/19 01/07/19 20:34 23:37 02:46 WBC RBC Hgb Hct MCV MCH MCHC RDW Plt Count MPV Absolute Neuts (auto) Neutrophils % Lymphocytes % Monocytes % Eosinophils % Basophils % Nucleated RBC % Platelet Estimate Platelet Comment PT with INR INR PTT (Actin FS) Sodium Potassium Chloride Carbon Dioxide Anion Gap BUN Creatinine Est GFR (CKD-EPI)AfAm Est GFR (CKD-EPI)NonAf Random Glucose Hemoglobin A1c % Calcium Phosphorus Magnesium Total Bilirubin Direct Bilirubin GGT AST ALT Alkaline Phosphatase Creatine Kinase 117 Troponin I 0.12 H 0.15 H B-Natriuretic Peptide Total Protein Albumin Prealbumin Triglycerides Cholesterol Total LDL Cholesterol HDL Cholesterol Vitamin B12 TSH Free T4 Urine Color Yellow Urine Appearance Clear Urine pH 5.5 Ur Specific [place] 1.006 L Urine Protein Negative Urine Glucose (UA) Negative Urine Ketones Negative Urine Blood Negative Urine Nitrite Negative Urine Bilirubin Negative Urine Urobilinogen 0.2 Ur Leukocyte Esterase Negative Ur Random Sodium Ur Random Potassium Ur Random Chloride 01/07/19 01/07/19 01/07/19 02:46 02:46 06:00 WBC 6.7 RBC 4.25 Hgb 14.0 Hct 41.5 MCV 97.6 H MCH 32.9 MCHC 33.7 RDW 15.9 Plt Count 142 MPV 11.3 H Absolute Neuts (auto) 4.4 Neutrophils % 65.6 Lymphocytes % 20.6 Monocytes % 11.3 H Eosinophils % 1.7 Basophils % 0.8 Nucleated RBC % 0 Platelet Estimate Platelet Comment PT with INR INR PTT (Actin FS) Sodium Potassium Chloride Carbon Dioxide Anion Gap BUN Creatinine Est GFR (CKD-EPI)AfAm Est GFR (CKD-EPI)NonAf Random Glucose Hemoglobin A1c % Calcium Phosphorus Magnesium Total Bilirubin Direct Bilirubin GGT 185 H AST ALT Alkaline Phosphatase Creatine Kinase Troponin I B-Natriuretic Peptide Total Protein Albumin Prealbumin 13.9 L Triglycerides Cholesterol Total LDL Cholesterol HDL Cholesterol Vitamin B12 TSH Free T4 Urine Color Urine Appearance Urine pH Ur Specific [place] Urine Protein Urine Glucose (UA) Urine Ketones Urine Blood Urine Nitrite Urine Bilirubin Urine Urobilinogen Ur Leukocyte Esterase Ur Random Sodium Ur Random Potassium Ur Random Chloride 01/07/19 01/07/19 01/07/19 06:00 06:00 07:00 WBC RBC Hgb Hct MCV MCH MCHC RDW Plt Count MPV Absolute Neuts (auto) Neutrophils % Lymphocytes % Monocytes % Eosinophils % Basophils % Nucleated RBC % Platelet Estimate Platelet Comment PT with INR INR PTT (Actin FS) Sodium 140 Potassium 3.9 Chloride 107 Carbon Dioxide 23 Anion Gap 10 BUN 20 H Creatinine 1.3 Est GFR (CKD-EPI)AfAm 64.98 Est GFR (CKD-EPI)NonAf 56.06 Random Glucose 73 L Hemoglobin A1c % 5.4 Calcium 9.1 Phosphorus 4.5 Magnesium 2.0 Total Bilirubin 2.1 H Direct Bilirubin GGT AST 21 ALT 26 Alkaline Phosphatase 127 H Creatine Kinase Troponin I B-Natriuretic Peptide Total Protein 7.1 Albumin 3.5 Prealbumin Triglycerides 75 Cholesterol 136 Total LDL Cholesterol 106 H HDL Cholesterol 28 L Vitamin B12 585 TSH 4.19 H Free T4 Urine Color Urine Appearance Urine pH Ur Specific [place] Urine Protein Urine Glucose (UA) Urine Ketones Urine Blood Urine Nitrite Urine Bilirubin Urine Urobilinogen Ur Leukocyte Esterase Ur Random Sodium 103 Ur Random Potassium 11.1 L Ur Random Chloride 117 01/07/19 10:10 WBC RBC Hgb Hct MCV MCH MCHC RDW Plt Count MPV Absolute Neuts (auto) Neutrophils % Lymphocytes % Monocytes % Eosinophils % Basophils % Nucleated RBC % Platelet Estimate Platelet Comment PT with INR INR PTT (Actin FS) Sodium Potassium Chloride Carbon Dioxide Anion Gap BUN Creatinine Est GFR (CKD-EPI)AfAm Est GFR (CKD-EPI)NonAf Random Glucose Hemoglobin A1c % Calcium Phosphorus Magnesium Total Bilirubin Direct Bilirubin 0.5 H GGT AST ALT Alkaline Phosphatase Creatine Kinase 77 Troponin I 0.09 H B-Natriuretic Peptide Total Protein Albumin Prealbumin Triglycerides Cholesterol Total LDL Cholesterol HDL Cholesterol Vitamin B12 TSH Free T4 1.31 H Urine Color Urine Appearance Urine pH Ur Specific [place] Urine Protein Urine Glucose (UA) Urine Ketones Urine Blood Urine Nitrite Urine Bilirubin Urine Urobilinogen Ur Leukocyte Esterase Ur Random Sodium Ur Random Potassium Ur Random Chloride Current Medications Generic Name Dose Route Start Last Admin Trade Name Freq PRN Reason Stop Dose Admin Furosemide 40 mg 01/07/19 06:00 01/07/19 14:49 Lasix Injection - IVPUSH 40 mg BIDLASIX ADA Administration Heparin Sodium (Porcine) 1,000 unit 01/07/19 11:04 Heparin - IVPUSH PRN PRN Heparin Heparin Sodium (Porcine) 5,000 unit 01/07/19 11:04 Heparin - IVPUSH PRN PRN Heparin Heparin Sodium/Dextrose 25,000 units in 500 mls @ 20 mls/hr 01/07/19 11:15 11:50 Heparin Infusion - IVPB 1,000 units/hr TITR ADA 20 mls/hr Administration Protocol 1,000 UNITS/HR Metoprolol Tartrate 5 mg 01/07/19 08:52 Lopressor Injection - IVPUSH Q4H PRN TACHYCARDIA Metoprolol Tartrate 25 mg 01/07/19 14:00 01/07/19 14:49 Lopressor - PO 25 mg TID ADA Administration Home Medications Medication Instructions Recorded NK [No Known Home Medication] 01/06/19 ASSESSMENT AND PLAN: 68 year old male with history of irregular heart rate, presented with 4 month history of worsening SOB, worse on exertion, and 2 week history of rapiidly progressing LE edema. In ED, he was found to be in Afib with RVR. 1. Acute Systolic CHF CXR - pulmonary congestion and cardiomegaly BNP 8151 Echo - severely dilated LV, global hypokinesis, atral septal aneurysm, severe MR TropI max 0.15, down to 0.09, chest pain free Responding well to IV Lasix 40mg BID. Daily weight, I/Os Cardiology eval. 2. Newly recognized Atrial Fibrillation Started on Lopressor 25mg TID and Heparin drip. Cardiology to recommend choice of oral anticoagulation 3. Hyperthyroidism with elevated TSH TSH4.16/freeT4 1.31 Will get Endocrinology opinion 3. Hyperbilirubinemia - mostly indirect, likley Gilbert's. Abdominal US negative for biliary pathology 4. Bilateral renal Cysts - incidental finding on imaging - for out-patient Urology follow up. 5. Elevated GGT/Macrocytosis - etiology unclear. Fatty Liver on US. ? sec to Alcohol excess - further alcohol history to be obtained from patient in light of systolic CHF and global hypokinesis. DVT Px - on Heparin drip
[2019-01-08] MEDS: FUROSEMIDE 40 MG/4 ML INJECTABLE VIAL IVPUSH SCH ×2 (06:08→13:50)
[2019-01-08] MEDS: METOPROLOL TARTRATE 25 MG TABLET (FP) PO SCH (06:08)
[2019-01-08 07:25] LABS: CALCIUM 8.4 mg/dL (8.5-10.1); CREATININE 1.2 mg/dL (0.55-1.3); MAGNESIUM 2.1 mg/dL (1.8-2.4); PHOSPHOROUS 4.5 mg/dL (2.5-4.9); POTASSIUM 3.3 mmol/L (3.5-5.1)
[2019-01-08] MEDS: POTASSIUM CHLORIDE TABS 20 MEQ TABLET.ER (FP) PO SCH ×2 (10:18→22:09)
[2019-01-08] MEDS: HEPARIN INFUSION - 25,000 UNITS/500 ML INFUS.BAG IVPB SCH (10:19)
--- NOTE | 2019-01-08 12:14 | PN ---
Progress Note, Physician Chief Complaint: Events noted Remains on telemetry still AF with periods of RVR History of Present Illness: Patient was seen and examined. Awake and alert. Chart was reviewed Denies chest pain, breathing comfortable this AM. Anxious though asking questions regarding his medical condition Monitor reveals AF with RVR Echocardiography reveals severely reduced LV systolic function, severe MR, moderate TR, mild AR, moderate LAD and RAD, mild pulmonary HTN - Current Medication List Current Medications: Active Medications Furosemide (Lasix Injection -) 40 mg IVPUSH BIDLASIX [facility] Last Admin: 01/08/19 06:08 Dose: 40 mg Heparin Sodium (Porcine) (Heparin -) 1,000 unit IVPUSH PRN PRN PRN Reason: Heparin Heparin Sodium (Porcine) (Heparin -) 5,000 unit IVPUSH PRN PRN PRN Reason: Heparin Heparin Sodium/Dextrose (Heparin Infusion -) 25,000 units in 500 mls @ 20 mls/ hr IVPB TITR ADA; Protocol Last Admin: 01/08/19 10:19 Dose: 1,000 units/hr, 20 mls/hr Metoprolol Tartrate (Lopressor Injection -) 5 mg IVPUSH Q4H PRN PRN Reason: TACHYCARDIA Metoprolol Tartrate (Lopressor -) 25 mg PO TID [facility] Last Admin: 01/08/19 06:08 Dose: 25 mg Potassium Chloride (K-Dur -) 40 meq PO BID [facility] Stop: 01/08/19 22:01 Last Admin: 01/08/19 10:18 Dose: 40 meq - Objective Vital Signs: Vital Signs Temperature 98.0 F 01/08/19 09:55 Pulse Rate 113 H 01/08/19 09:55 Respiratory Rate 18 01/08/19 09:55 Blood Pressure 107/65 01/08/19 09:55 O2 Sat by Pulse Oximetry (%) 98 01/08/19 09:55 Eyes: Yes: PERRL HENT: Yes: Atraumatic Neck: Yes: Supple Cardiovascular: Yes: Pulse Irregular, Murmur (SM), S1, S2 Respiratory: Yes: Diminished Gastrointestinal: Yes: Normal Bowel Sounds, Soft. No: Tenderness Edema: No Additional Findings/Remarks: - Review of Systems Constitutional: denies: Chills, Fever Cardiovascular: reports: Palpitations, Shortness of Breath. denies: Chest Pain Respiratory: reports: SOB, SOB on Exertion. denies: Cough, Hemoptysis, Orthopnea, PND, Wheezing Gastrointestinal: denies: Abdominal Pain, Constipation, Diarrhea, Melena, Nausea , Rectal Bleeding, Vomiting Genitourinary: denies: Dysuria, Hematuria Musculoskeletal: denies: Back Pain, Joint Pain Neurological: denies: Dizziness, Headache, Seizure, Syncope Labs: CBC, BMP 01/07/19 06:00 01/08/19 05:30 INR, PTT INR 1.38 (0.83-1.09) H 01/06/19 20:34 Problem List - Problems (1) Atrial fibrillation Code(s): I48.91 - UNSPECIFIED ATRIAL FIBRILLATION Qualifiers: Atrial fibrillation type: unspecified Qualified Code(s): I48.91 - Unspecified atrial fibrillation (2) Dyspnea Code(s): R06.00 - DYSPNEA, UNSPECIFIED Qualifiers: Dyspnea type: unspecified Qualified Code(s): R06.00 - Dyspnea, unspecified (3) CHF (congestive heart failure) Code(s): I50.9 - HEART FAILURE, UNSPECIFIED Qualifiers: Heart failure type: combined systolic and diastolic Heart failure chronicity: acute on chronic Qualified Code(s): I50.43 - Acute on chronic combined systolic (congestive) and diastolic (congestive) heart failure (4) Demand ischemia Code(s): I24.8 - OTHER FORMS OF ACUTE ISCHEMIC HEART DISEASE Assessment/Plan 1. Dyspnea due to CHF and pleural effusion +/- reactive airway disease 2. Acute on chronic LV systolic failure (class 1-2 NYHA classification), dilated cardiomyopathy, etiology to be determined, ? tachycardia mediated 3. AF with RVR 4. Demand ischemia 5. Hypokalemia PLAN: 1. Suggest Eliquis 5 mg BID if patient agreeable. Patient currently indeterminate regarding choice of oral anticoagulants. In the interim continue Heparin protocol 2. Beta melanie - consider Carvedilol 6.25 mg BID and uptitrate and add ACEI or ARB (suggest Losartan 25 mg QD) 3. Echocardiography was reviewed 4. As patient remains in AF, may consider LISANDRA guided synchronized cardioversion tomorrow 5. Further cardiac work up to follow including possible nuclear MPI ( Pharmacologic) vs. L & R cardiac catheterization. Further plans are to follow Francisco Martínez MD
[2019-01-08 12:25] LABS: COCAINE, UR NEGATIVE ng/ml (CUTOFF=300); METHADONE, UR NEGATIVE ng/ml (CUTOFF=300); OPIATES, URI NEGATIVE ng/ml (CUTOFF=300); PHENCYCLIDINE,URINE NEGATIVE ng/ml (CUTOFF=25); URINE AMPHETAMINES NEGATIVE ng/ml (CUTOFF=500); URINE BARBITURATES NEGATIVE ng/ml (CUTOFF=200); URINE BENZODIAZEPINES NEGATIVE ng/ml (CUTOFF=200)
[2019-01-08] MEDS: METOPROLOL TARTRATE 5 MG/5 ML VIAL IVPUSH PRN ×2 (12:28→23:22)
[2019-01-08] MEDS: CARVEDILOL 6.25 MG TABLET (FP) PO SCH ×2 (12:45→22:08)
--- NOTE | 2019-01-08 12:56 | CONSULT ---
Consult Consult Specialty:: Endocrinology Referred by:: Ray Harris MD Reason for Consultation:: Abnormal TFT - History of Present Illness Chief Complaint: SOB History of Present Illness: This is a 68 yo M with a PMHx with a history of an "erratic heart beat" and "valve issue, presented to the ED because of worsening SOB for 4 months and B/L LE edema over the last 2 weeks. Prior to 4 months ago, patient says he was normal with no issues. He denies a history of CHF. He says he was never on any rate control or anticoagulation. He went to his PCP, Dr. Mitchell, for the edema and yellowing of skin, who sent him to [place] for admission. In the ER he was found to be in Afib with RVR in the 150s. He was given 60mg of Lasix, total 30mg of Diltiazem with some improvement in HR. CXR revealed cardiomegaly, diffuse pulmonary congestion and possible pleural effusions. Pt found to have abnormal TFT with TSH of 4.19 and FT4 of 1.31 both reported as high. Pt denies any h/o thyroid disorder. Has occ palpitations and anxiety but no restlessness, heat intolerance or wt loss. - History Source History Provided By: Patient, Medical Record - Alcohol/Substance Use Hx Alcohol Use: No History of Substance Use: reports: None - Smoking History Smoking history: Unknown if ever smoked Have you smoked in the past 12 months: No Home Medications - Allergies Allergies/Adverse Reactions: Allergies Allergy/AdvReac Type Severity Reaction Status Date / Time No Known Allergies Allergy Verified 01/06/19 20:07 - Home Medications Home Medications: Ambulatory Orders NK [No Known Home Medication] 01/06/19 Family Disease History - Family Disease History Other Family History: ? history of heart valve surgery Review of Systems - Review of Systems Constitutional: reports: No Symptoms Eyes: reports: No Symptoms HENT: reports: No Symptoms Neck: reports: No Symptoms Cardiovascular: reports: Shortness of Breath Respiratory: reports: SOB on Exertion Gastrointestinal: reports: No Symptoms Genitourinary: reports: No Symptoms Musculoskeletal: reports: No Symptoms Neurological: reports: No Symptoms Physical Exam Vital Signs: Vital Signs Temperature 98.0 F 01/08/19 09:55 Pulse Rate 169 H 01/08/19 12:28 Respiratory Rate 18 01/08/19 09:55 Blood Pressure 106/61 01/08/19 12:28 O2 Sat by Pulse Oximetry (%) 98 01/08/19 09:55 Constitutional: Yes: No Distress, Calm Eyes: Yes: Conjunctiva Clear, EOM Intact HENT: Yes: Atraumatic, Normocephalic Neck: Yes: Supple, Trachea Midline Cardiovascular: Yes: Pulse Irregular Respiratory: Yes: Regular, CTA Bilaterally Gastrointestinal: Yes: Normal Bowel Sounds, Soft Musculoskeletal: Yes: WNL Extremities: Yes: WNL Edema: Yes Labs: CBC, BMP 01/07/19 06:00 01/08/19 05:30 Imaging - Results X-ray: Report Reviewed Ultrasound: Report Reviewed Other: Report Reviewed (Echocardiogram) Assessment/Plan AP; New onset A Fib CHF Abnormal TFT with TSH of 4.19 and FT4 of 1.31 both reported as high Left Renal Cyst FT4 of 1.31 reported as high probably issue with calibartion. Borderline high TSH probably part of Sick euthyroid syndrome or subclinical hypothyroidism Will repeat FT4 by dialysis with FT3, TPO,TSI Will F/u
--- NOTE | 2019-01-08 13:02 | PN ---
Physical Exam: SUBJECTIVE: Patient seen and examined. Pt. states that he does not use oxygen at home. He denies any acute complaints. Telemetry showed AFib, Tachy to 140s, NSVT, and a missed beat. OBJECTIVE: Vital Signs Period Temp Pulse Resp BP Sys/Vivas Pulse Ox Last 24 Hr 97.1 F-98.0 F 106-169 16-18 97-118/61-85 94-98 GENERAL: The patient is awake, alert, and fully oriented, in no acute distress. HEAD: Normal with no signs of trauma. EYES: Extraocular movements intact, scleral ictericus, conjunctiva clear. ENT: Ears normal, nares patent, oropharynx clear without exudates, moist mucous membranes. NECK: Trachea midline, full range of motion, supple. LUNGS: Breath sounds equal, clear to auscultation bilaterally, no wheezes, no crackles, no accessory muscle use. HEART: Irregular rate and rhythm, S1, S2 without murmur ABDOMEN: Soft, nontender, nondistended, normoactive bowel sounds, no guarding, no rebound, no hepatosplenomegaly, no masses. EXTREMITIES: 2+ dorsal pedal pulses, warm, no calf tenderness, no calf tenderness, well-perfused, 2+ edema. NEUROLOGICAL: Normal speech, gait not observed. PSYCH: Normal mood, normal affect. SKIN: Slightly yellow, Warm, dry, normal turgor, Laboratory Results - last 24 hr 01/07/19 01/08/19 01/08/19 19:45 05:30 05:30 PTT (Actin FS) 70.6 H 63.8 H Sodium 142 Potassium 3.3 L Chloride 106 Carbon Dioxide 28 Anion Gap 8 BUN 20 H Creatinine 1.2 Est GFR (CKD-EPI)AfAm 71.58 Est GFR (CKD-EPI)NonAf 61.76 Random Glucose 74 Calcium 8.4 L Phosphorus 4.5 Magnesium 2.1 Opiates Screen Methadone Screen Barbiturate Screen Phencyclidine Screen Ur Amphetamines Screen MDMA (Ecstasy) Screen Benzodiazepines Screen Cocaine Screen U Marijuana (THC) Screen 01/08/19 10:41 PTT (Actin FS) Sodium Potassium Chloride Carbon Dioxide Anion Gap BUN Creatinine Est GFR (CKD-EPI)AfAm Est GFR (CKD-EPI)NonAf Random Glucose Calcium Phosphorus Magnesium Opiates Screen Negative Methadone Screen Negative Barbiturate Screen Negative Phencyclidine Screen Negative Ur Amphetamines Screen Negative MDMA (Ecstasy) Screen Negative Benzodiazepines Screen Negative Cocaine Screen Negative U Marijuana (THC) Screen Negative Active Medications Home Medications Medication Instructions Recorded NK [No Known Home Medication] 01/06/19 Current Medications Carvedilol (Coreg -) 6.25 mg PO BID [facility] Last Admin: 01/08/19 12:45 Dose: 6.25 mg Furosemide (Lasix Injection -) 40 mg IVPUSH BIDLASIX [facility] Last Admin: 01/08/19 06:08 Dose: 40 mg Heparin Sodium (Porcine) (Heparin -) 1,000 unit IVPUSH PRN PRN PRN Reason: Heparin Heparin Sodium (Porcine) (Heparin -) 5,000 unit IVPUSH PRN PRN PRN Reason: Heparin Heparin Sodium/Dextrose (Heparin Infusion -) 25,000 units in 500 mls @ 20 mls/ hr IVPB TITR [facility]; Protocol Last Admin: 01/08/19 10:19 Dose: 1,000 units/hr, 20 mls/hr Losartan Potassium (Cozaar -) 25 mg PO DAILY [facility] Metoprolol Tartrate (Lopressor Injection -) 5 mg IVPUSH Q4H PRN PRN Reason: TACHYCARDIA Last Admin: 01/08/19 12:28 Dose: 5 mg Potassium Chloride (K-Dur -) 40 meq PO BID [facility] Stop: 01/08/19 22:01 Last Admin: 01/08/19 10:18 Dose: 40 meq ASSESSMENT/PLAN: 68 yo M with a PMHx with a history of an "erratic heart beat" and "valve issue, presented to the ED because of worsening SOB and edema admitted for CHF and AFib. #New Onset CHF CXR with pulmonary congestion and cardiomegaly 1x Lasix 60mg given in ED Continue Lasix 40mg BID IV Cardio consulted: Dr. Martínez--> for LISANDRA guided synchronized cardioversion tomorrow and possible MPI vs. L+R catherization. would strongly consider endomyocardial biopsy if Pt. to receive catherize Echo: LV mildly dilated with severe global hypokinesis and severely reduced function, severe MR, mod. TR, mild AR, LA + RA mod. dilated, mild aortic sclerosis EKG with Afib with RVR, potential Q waves V1 V2 V3 (anteroseptal leads) strict i/o's, daily weight Fluid and salt restriction started Losartan 25 mg UTox - #New onset A-fib Chadvasc: 2, HAS-BLED: 1 c/w Heparin Drip--> will consider starting Eliquis 5mg BID pending Pt. decision. d/c Lovenox d/c Lopressor 25mg TID started Coreg 6.25mg BID Give lopressor 5mg IV as needed #Hyperthyroidism Pt. has elevated TSH: 4.14(likely sick euthyroid syndrome) and elevated T3: 1.31 ( likely lab error) Endocrinology consult appreciated--> likely lab error, low suspicion for overt hyperthyroidism as Pt. does not have other clinical features other than tachycardia/arrythmia f/u Rpt. fT4(dialysis), fT3, TPO and TSI #Elevated bilirubin/Jaundice likely congestion from new CHF RUQ shows large left renal upper pole exophytic cyst 12.4 x 7.9 cm w/ internal echoes and questionable thin septation, small left exophytic cyst 2.9 cm, No biliary obstruction ovserved GGT: 185, TBili:1.8--> 2.1 (D. 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 #Tropinemia-resolved no chest pain, or sudden SOB, less likely ACS likely demand Trop: 0.12-->0.15-->0.09 #FRANKIE-resolving unknown baseline Cr. 1.4--> 1.3-->1.2 Likely cardiorenal syndrome if acute. c/w IV lasix 40mg BID Urine electrolytes wnl #FEN 1L Fluid restriction monitor electrolytes and replete as needed sodium restricted diet #DVT Ppx. Heparin Drip discussion with Pt. on starting Eliquis Visit type - Emergency Visit Emergency Visit: Yes ED Registration Date: 01/07/19 Care time: The patient presented to the Emergency Department on the above date and was hospitalized for further evaluation of their emergent condition. - New Patient This patient is new to me today: No - Critical Care Critical Care patient: Yes Total Critical Care Time (in minutes): 40 Critical Care Statement: The care of this patient involved high complexity decision making to prevent further life threatening deterioration of the patient 's condition and/or to evaluate & treat vital organ system(s) failure or risk of failure. - Discharge Referral Referred to [facility] No
--- NOTE | 2019-01-08 13:24 | PN ---
Teaching Attending Note Name of Resident: Joel Asif ATTENDING PHYSICIAN STATEMENT I saw and evaluated the patient. I reviewed the resident's note and discussed the case with the resident. I agree with the resident's findings and plan as documented. SUBJECTIVE: Dyspnea much improved. No CP/palpitations/Cough/Sputum/fever/ chills. OBJECTIVE: Afebrile, RVR Last Vital Signs Temp Pulse Resp BP Pulse Ox 98.0 F 169 H 18 106/61 98 01/08/19 09:55 01/08/19 12:28 01/08/19 09:55 01/08/19 12:28 01/08/19 09:55 Heart - S1, S2, irregular, SM Lungs - bibasal crackles/reduced air entry Abdomen - Soft, non-tender. Bowel Sounds normal. Extremities - bilateral LE edema ++. Laboratory Results - last 24 hr 01/07/19 01/08/19 01/08/19 19:45 05:30 05:30 PTT (Actin FS) 70.6 H 63.8 H Sodium 142 Potassium 3.3 L Chloride 106 Carbon Dioxide 28 Anion Gap 8 BUN 20 H Creatinine 1.2 Est GFR (CKD-EPI)AfAm 71.58 Est GFR (CKD-EPI)NonAf 61.76 Random Glucose 74 Calcium 8.4 L Phosphorus 4.5 Magnesium 2.1 Opiates Screen Methadone Screen Barbiturate Screen Phencyclidine Screen Ur Amphetamines Screen MDMA (Ecstasy) Screen Benzodiazepines Screen Cocaine Screen U Marijuana (THC) Screen 01/08/19 10:41 PTT (Actin FS) Sodium Potassium Chloride Carbon Dioxide Anion Gap BUN Creatinine Est GFR (CKD-EPI)AfAm Est GFR (CKD-EPI)NonAf Random Glucose Calcium Phosphorus Magnesium Opiates Screen Negative Methadone Screen Negative Barbiturate Screen Negative Phencyclidine Screen Negative Ur Amphetamines Screen Negative MDMA (Ecstasy) Screen Negative Benzodiazepines Screen Negative Cocaine Screen Negative U Marijuana (THC) Screen Negative Current Medications Generic Name Dose Route Start Last Admin Trade Name Freq PRN Reason Stop Dose Admin Carvedilol 6.25 mg 01/08/19 12:30 01/08/19 12:45 Coreg - PO 6.25 mg BID [facility] Administration Furosemide 40 mg 01/07/19 06:00 01/08/19 06:08 Lasix Injection - IVPUSH 40 mg BIDLASIX [facility] Administration Heparin Sodium (Porcine) 1,000 unit 01/07/19 11:04 Heparin - IVPUSH PRN PRN Heparin Heparin Sodium (Porcine) 5,000 unit 01/07/19 11:04 Heparin - IVPUSH PRN PRN Heparin Heparin Sodium/Dextrose 25,000 units in 500 mls @ 20 mls/hr 01/07/19 11:15 10:19 Heparin Infusion - IVPB 1,000 units/hr TITR [facility] 20 mls/hr Administration Protocol 1,000 UNITS/HR Losartan Potassium 25 mg 01/08/19 12:30 Cozaar - PO DAILY [facility] Metoprolol Tartrate 5 mg 01/07/19 08:52 01/08/19 12:28 Lopressor Injection - IVPUSH 5 mg Q4H PRN Administration TACHYCARDIA Potassium Chloride 40 meq 01/08/19 10:00 01/08/19 10:18 K-Dur - PO 01/08/19 22:01 40 meq BID [facility] Administration ASSESSMENT AND PLAN: 68 year old male with history of irregular heart rate, presented with 4 month history of worsening SOB, worse on exertion, and 2 week history of rapiidly progressing LE edema. In ED, he was found to be in Afib with RVR. 1. Acute Systolic CHF, etiology unclear CXR - pulmonary congestion and cardiomegaly BNP 8151 Echo - severely dilated LV, global hypokinesis, depressed EF, atral septal aneurysm, severe MR TropI max 0.15, down to 0.09, chest pain free Responding well to IV Lasix 40mg BID. Daily weight, I/Os Cardiology evaluated - recommend NM Stress tomorrow and consideration of LISANDRA Cardioversion. For Cardiac Cath at some point in the future. Started on BB. Will start SHANNAN-I once BP allows. 2. Newly recognized Atrial Fibrillation with RVR Started on Coreg 6.25mg BID and Heparin drip. Metoprolol IVP PRN for RVR Cardiology to make final recommendation regarding oral anticoagulant. 3. Hyperthyroidism with elevated TSH TSH 4.16/freeT4 1.31 Endocrinology consulted. 3. Hyperbilirubinemia - mostly indirect, likley Gilbert's. Abdominal US negative for biliary pathology 4. Bilateral Renal Cysts - incidental finding on imaging - for out-patient Urology follow up. 5. Elevated GGT/Macrocytosis - etiology unclear. Fatty Liver on US. Denies Alcohol excess. 6. Hypokalemia - repleted. DVT Px - on Heparin drip
[2019-01-08] MEDS: LOSARTAN POTASSIUM 25 MG TABLET PO SCH (13:50)
[2019-01-09] MEDS: FUROSEMIDE 40 MG/4 ML INJECTABLE VIAL IVPUSH SCH (06:27)
[2019-01-09 08:09] LABS: CALCIUM 8.7 mg/dL (8.5-10.1); CREATININE 1.2 mg/dL (0.55-1.3); TOT PROT 6.4 g/dl (6.4-8.2)
[2019-01-09 08:22] LABS: BASO % 0.8 % (0-2.0); EOS % 2.3 % (0-4.5); HEMATOCRIT 40.9 % (35.4-49); HEMOGLOBIN 13.6 GM/dL (11.7-16.9); MCH 32.5 pg (25.7-33.7); MCHC 33.3 g/dl (32.0-35.9); MEAN CELL VOLUME 97.6 fl (80-96); MEAN PLT VOLUME 12.1 fl (7.5-11.1); NEUT % 69.9 % (42.8-82.8); PLATELET COUNT 151 K/MM3 (134-434); RBC 4.19 M/mm3 (4.00-5.60); RDW 15.5 % (11.9-15.9); WHITE BLOOD COUNT 7.8 K/mm3 (4.0-10.0)
--- NOTE | 2019-01-09 08:49 | PN ---
Progress Note (short form) - Note Progress Note: Feels better No new complaints Vital Signs Period Temp Pulse Resp BP Sys/Vivas Pulse Ox Last 24 Hr 97.4 F-98.1 F 102-169 18-20 91-112/55-70 95-98 PE: AOx3 Neck: supple, No JVD HEENT: EOMI Lungs: few basal crackles CVS: S1S2 Abd: Benign EXt: +Edema Neuro: No focal deficit CMP Sodium 141 mmol/L (136-145) 01/09/19 06:19 Potassium 4.0 mmol/L (3.5-5.1) 01/09/19 06:19 Chloride 106 mmol/L (98-107) 01/09/19 06:19 Carbon Dioxide 27 mmol/L (21-32) 01/09/19 06:19 Anion Gap 7 MMOL/L (8-16) L 01/09/19 06:19 BUN 23 mg/dL (7-18) H 01/09/19 06:19 Creatinine 1.2 mg/dL (0.55-1.3) 01/09/19 06:19 Est GFR (CKD-EPI)AfAm 71.58 01/09/19 06:19 Est GFR (CKD-EPI)NonAf 61.76 01/09/19 06:19 Random Glucose 85 mg/dL (74-106) 01/09/19 06:19 Hemoglobin A1c % 5.4 % (4.2-6.3) 01/07/19 06:00 Calcium 8.7 mg/dL (8.5-10.1) 01/09/19 06:19 Phosphorus 4.5 mg/dL (2.5-4.9) 01/08/19 05:30 Magnesium 2.1 mg/dL (1.8-2.4) 01/08/19 05:30 Total Bilirubin 1.0 mg/dL (0.2-1) 01/09/19 06:19 Direct Bilirubin 0.5 mg/dL (0.0-0.2) H 01/07/19 10:10 GGT 185 U/L (5-85) H 01/07/19 02:46 AST 20 U/L (15-37) 01/09/19 06:19 ALT 25 U/L (13-61) 01/09/19 06:19 Alkaline Phosphatase 110 U/L (45-117) 01/09/19 06:19 Creatine Kinase 57 U/L (26-308) 01/09/19 06:19 Troponin I 0.10 ng/ml (0.00-0.05) H 01/09/19 06:19 B-Natriuretic Peptide 8151.8 pg/ml (5-125) H 01/06/19 20:34 Total Protein 6.4 g/dl (6.4-8.2) 01/09/19 06:19 Albumin 3.0 g/dl (3.4-5.0) L 01/09/19 06:19 Prealbumin 13.9 mg/dl (20-40) L 01/07/19 02:46 Triglycerides 75 mg/dL (0-150) 01/07/19 06:00 Cholesterol 136 mg/dL (50-200) 01/07/19 06:00 Total LDL Cholesterol 106 mg/dL (5-100) H 01/07/19 06:00 HDL Cholesterol 28 mg/dL (40-60) L 01/07/19 06:00 Vitamin B12 585 pg/ml (193-986) 01/07/19 06:00 TSH 2.97 uIU/ml (0.358-3.74) D 01/09/19 06:19 Free T4 1.31 ng/dl (0.76-1.16) H 01/07/19 10:10 Current Medications Generic Name Dose Route Start Last Admin Trade Name Freq PRN Reason Stop Dose Admin Carvedilol 6.25 mg 01/08/19 12:30 01/08/19 22:08 Coreg - PO 6.25 mg BID [facility] Administration Furosemide 40 mg 01/07/19 06:00 01/09/19 06:27 Lasix Injection - IVPUSH 40 mg BIDLASIX [facility] Administration Heparin Sodium (Porcine) 1,000 unit 01/07/19 11:04 Heparin - IVPUSH PRN PRN Heparin Heparin Sodium (Porcine) 5,000 unit 01/07/19 11:04 Heparin - IVPUSH PRN PRN Heparin Heparin Sodium/Dextrose 25,000 units in 500 mls @ 20 mls/hr 01/07/19 11:15 10:19 Heparin Infusion - IVPB 1,000 units/hr TITR [facility] 20 mls/hr Administration Protocol 1,000 UNITS/HR Losartan Potassium 25 mg 01/08/19 12:30 01/08/19 13:50 Cozaar - PO Not Given DAILY [facility] Metoprolol Tartrate 5 mg 01/07/19 08:52 01/08/19 23:22 Lopressor Injection - IVPUSH 5 mg Q4H PRN Administration TACHYCARDIA AP; New onset A Fib CHF Abnormal TFT with TSH of 4.19 and FT4 of 1.31 both reported as high Left Renal Cyst Rpt TSH 2.97 WNL FT4 by dialysis result pending. Will probably take a few days for the result to be ready Will f/u once the pending results are available. If pt is discharged before they available, pt to call [phone] for result. FT4 of 1.31 reported as high probably issue with calibartion. Borderline high TSH probably part of Sick euthyroid syndrome or subclinical hypothyroidism Will F/u
--- NOTE | 2019-01-09 08:59 | PN ---
Progress Note, Physician Chief Complaint: Events noted Remains on telemetry still AF but better rate control History of Present Illness: Patient was seen and examined. Awake and alert. Chart was reviewed Denies chest pain, SOB. AF with variable HR Echocardiography reveals severely reduced LV systolic function, severe MR, moderate TR, mild AR, moderate LAD and RAD, mild pulmonary HTN - Current Medication List Current Medications: Active Medications Carvedilol (Coreg -) 6.25 mg PO BID [facility] Last Admin: 01/08/19 22:08 Dose: 6.25 mg Furosemide (Lasix Injection -) 40 mg IVPUSH BIDLASIX [facility] Last Admin: 01/09/19 06:27 Dose: 40 mg Heparin Sodium (Porcine) (Heparin -) 1,000 unit IVPUSH PRN PRN PRN Reason: Heparin Heparin Sodium (Porcine) (Heparin -) 5,000 unit IVPUSH PRN PRN PRN Reason: Heparin Heparin Sodium/Dextrose (Heparin Infusion -) 25,000 units in 500 mls @ 20 mls/ hr IVPB TITR [facility]; Protocol Last Admin: 01/08/19 10:19 Dose: 1,000 units/hr, 20 mls/hr Losartan Potassium (Cozaar -) 25 mg PO DAILY [facility] Last Admin: 01/08/19 13:50 Dose: Not Given Metoprolol Tartrate (Lopressor Injection -) 5 mg IVPUSH Q4H PRN PRN Reason: TACHYCARDIA Last Admin: 01/08/19 23:22 Dose: 5 mg - Objective Vital Signs: Vital Signs Temperature 97.4 F L 01/09/19 06:00 Pulse Rate 118 H 01/09/19 06:00 Respiratory Rate 18 01/09/19 06:00 Blood Pressure 101/64 01/09/19 06:00 O2 Sat by Pulse Oximetry (%) 95 01/08/19 22:00 Eyes: Yes: PERRL HENT: Yes: Atraumatic Neck: Yes: Supple Cardiovascular: Yes: Pulse Irregular, Murmur (SM), S1, S2 Respiratory: Yes: CTA Bilaterally Gastrointestinal: Yes: Normal Bowel Sounds, Soft. No: Tenderness Edema: No Additional Findings/Remarks: - Review of Systems Constitutional: denies: Chills, Fever Cardiovascular: reports: Palpitations, Shortness of Breath. denies: Chest Pain Respiratory: reports: SOB, SOB on Exertion. denies: Cough, Hemoptysis, Orthopnea, PND, Wheezing Gastrointestinal: denies: Abdominal Pain, Constipation, Diarrhea, Melena, Nausea , Rectal Bleeding, Vomiting Genitourinary: denies: Dysuria, Hematuria Musculoskeletal: denies: Back Pain, Joint Pain Neurological: denies: Dizziness, Headache, Seizure, Syncope Labs: CBC, BMP 01/09/19 06:19 01/09/19 06:19 Problem List - Problems (1) Atrial fibrillation Code(s): I48.91 - UNSPECIFIED ATRIAL FIBRILLATION Qualifiers: Atrial fibrillation type: unspecified Qualified Code(s): I48.91 - Unspecified atrial fibrillation (2) Dyspnea Code(s): R06.00 - DYSPNEA, UNSPECIFIED Qualifiers: Dyspnea type: unspecified Qualified Code(s): R06.00 - Dyspnea, unspecified (3) CHF (congestive heart failure) Code(s): I50.9 - HEART FAILURE, UNSPECIFIED Qualifiers: Heart failure type: combined systolic and diastolic Heart failure chronicity: acute on chronic Qualified Code(s): I50.43 - Acute on chronic combined systolic (congestive) and diastolic (congestive) heart failure (4) Demand ischemia Code(s): I24.8 - OTHER FORMS OF ACUTE ISCHEMIC HEART DISEASE (5) Cardiomyopathy Code(s): I42.9 - CARDIOMYOPATHY, UNSPECIFIED Qualifiers: Cardiomyopathy type: unspecified Qualified Code(s): I42.9 - Cardiomyopathy , unspecified Assessment/Plan 1. Dyspnea due to CHF and pleural effusion +/- reactive airway disease 2. Acute on chronic LV systolic failure (class 1-2 NYHA classification), dilated cardiomyopathy, etiology to be determined, ? tachycardia mediated 3. AF with RVR 4. Demand ischemia 5. Hypokalemia PLAN: 1. Start Eliquis 5 mg BID as patient is agreeable and discontinue Heparin drip. 2. Beta melanie - Increase Carvedilol to 12.5 mg BID and continue Losartan 25 mg QD 3. As patient remains in AF, LISANDRA guided synchronized cardioversion later today 4. Further cardiac work up nuclear MPI (Pharmacologic). Consider L & R cardiac catheterization at later time Further plans are to follow Francisco Martínez MD
[2019-01-09] MEDS ORDERED: CARVEDILOL 6.25 MG TABLET (FP) PO SCH ×2 (09:00→14:00)
[2019-01-09] MEDS: APIXABAN 5 MG TABLET PO SCH ×2 (09:46→22:26)
[2019-01-09] MEDS: LOSARTAN POTASSIUM 25 MG TABLET PO SCH (09:46)
[2019-01-09] MEDS ORDERED: REGADENOSON 0.4 MG/5 ML PRE-FILLED SYRINGE IVPUSH ONE (10:30)
--- NOTE | 2019-01-09 13:25 | EKG ---
Test Reason : Blood Pressure : / mmHG Vent. Rate : 111 BPM Atrial Rate : 133 BPM P-R Int : 000 ms QRS Dur : 098 ms QT Int : 386 ms P-R-T Axes : 000 -29 070 degrees QTc Int : 524 ms ATRIAL FIBRILLATION WITH RAPID VENTRICULAR RESPONSE WITH PREMATURE VENTRICULAR OR ABERRANTLY CONDUCTED COMPLEXES NONSPECIFIC T WAVE ABNORMALITY PROLONGED QT ABNORMAL ECG Confirmed by GERA RAYA MD ([id number]) on 01/09/2019 1:24:49 PM Referred By: RAEGAN BRENNAN Confirmed By:GERA RAYA MD
--- NOTE | 2019-01-09 13:38 | EKG ---
Test Reason : Blood Pressure : / mmHG Vent. Rate : 109 BPM Atrial Rate : 093 BPM P-R Int : 000 ms QRS Dur : 094 ms QT Int : 384 ms P-R-T Axes : 000 000 066 degrees QTc Int : 517 ms ATRIAL FIBRILLATION WITH RAPID VENTRICULAR RESPONSE WITH PREMATURE VENTRICULAR OR ABERRANTLY CONDUCTED COMPLEXES NONSPECIFIC ST AND T WAVE ABNORMALITY ABNORMAL ECG WHEN COMPARED WITH ECG OF 06-JAN-2019 20:15, NO SIGNIFICANT CHANGE WAS FOUND Confirmed by GERA RAYA MD ([id number]) on 01/09/2019 1:38:07 PM Referred By: Confirmed By:GERA RAYA MD
--- NOTE | 2019-01-09 14:37 | PN ---
Teaching Attending Note Name of Resident: Leticia Kim ATTENDING PHYSICIAN STATEMENT I saw and evaluated the patient. I reviewed the resident's note and discussed the case with the resident. I agree with the resident's findings and plan as documented. SUBJECTIVE: Dyspnea much improved. No CP/palpitations/Cough/Sputum/fever/ chills. OBJECTIVE: Afebrile, Hemodynamically Stable Last Vital Signs Temp Pulse Resp BP Pulse Ox 97.2 F L 112 H 18 118/52 L 96 01/09/19 10:00 01/09/19 14:07 01/09/19 14:07 01/09/19 14:07 01/09/19 09:00 Heart - S1, S2, irregular, SM Lungs - bibasal crackles/reduced air entry Abdomen - Soft, non-tender. Bowel Sounds normal. Extremities - bilateral LE edema ++. Laboratory Results - last 24 hr 01/09/19 01/09/19 01/09/19 06:19 06:19 06:19 WBC 7.8 RBC 4.19 Hgb 13.6 Hct 40.9 MCV 97.6 H MCH 32.5 MCHC 33.3 RDW 15.5 Plt Count 151 MPV 12.1 H Absolute Neuts (auto) 5.5 Neutrophils % 69.9 Lymphocytes % 16.0 D Monocytes % 11.0 H Eosinophils % 2.3 Basophils % 0.8 Nucleated RBC % 0 PTT (Actin FS) 51.0 H Sodium 141 Potassium 4.0 Chloride 106 Carbon Dioxide 27 Anion Gap 7 L BUN 23 H Creatinine 1.2 Est GFR (CKD-EPI)AfAm 71.58 Est GFR (CKD-EPI)NonAf 61.76 Random Glucose 85 Calcium 8.7 Total Bilirubin 1.0 AST 20 ALT 25 Alkaline Phosphatase 110 Creatine Kinase 57 Troponin I 0.10 H Total Protein 6.4 Albumin 3.0 L TSH 2.97 D Current Medications Generic Name Dose Route Start Last Admin Trade Name Freq PRN Reason Stop Dose Admin Apixaban 5 mg 01/09/19 10:00 01/09/19 09:46 Eliquis - PO Not Given BID ADA Carvedilol 6.25 mg 01/09/19 14:00 01/09/19 14:14 Coreg - PO 6.25 mg BID ADA Administration Furosemide 40 mg 01/10/19 10:00 Lasix - PO DAILY ADA Losartan Potassium 25 mg 01/08/19 12:30 01/09/19 09:46 Cozaar - PO Not Given DAILY ADA Metoprolol Tartrate 5 mg 01/07/19 08:52 01/08/19 23:22 Lopressor Injection - IVPUSH 5 mg Q4H PRN Administration TACHYCARDIA ASSESSMENT AND PLAN: 68 year old male with history of irregular heart rate, presented with 4 month history of worsening SOB, worse on exertion, and 2 week history of rapiidly progressing LE edema. In ED, he was found to be in Afib with RVR. 1. Acute Systolic CHF, etiology unclear CXR - pulmonary congestion and cardiomegaly BNP 8151 Echo - severely dilated LV, global hypokinesis, depressed EF, atrial septal aneurysm, severe MR TropI max 0.15 Responded well to IV Lasix 40mg BID - transitioned to oral Lasix. Cardiology evaluated - NM Stress and LISANDRA Cardioversion today. Started on BB and ARB. Can be discharged today if LISANDRA Cardioversion succesful and Stress Negative. For Cardiac Cath at some point in the future as out-patient. 2. Newly recognized Atrial Fibrillation with RVR Started on Coreg 6.25mg BID and Heparin drip. Eliquis for AC as per Cardiology recommendations 3. Hyperthyroidism with elevated TSH TSH 4.16/freeT4 1.31 Endocrinology consulted - repeat labwork pending. 3. Hyperbilirubinemia - mostly indirect, likley Gilbert's. Abdominal US negative for biliary pathology 4. Bilateral Renal Cysts - incidental finding on imaging - for out-patient Urology follow up. 5. Elevated GGT/Macrocytosis - etiology unclear. Fatty Liver on US. Denies Alcohol excess. 6. Hypokalemia - repleted. DVT Px - on Eliquis
--- NOTE | 2019-01-09 15:41 | PN ---
Physical Exam: SUBJECTIVE: Patient seen and examined at bedside. Overnight, w HR into 140's. Received lopressor ivp x 1. On way to stress test this AM. No other complaints. OBJECTIVE: Vital Signs Period Temp Pulse Resp BP Sys/Vivas Pulse Ox Last 24 Hr 97.2 F-98.1 F 92-160 18-20 92-142/52-76 95-96 GENERAL: The patient is awake, alert, and fully oriented, in no acute distress. HEAD: Normal with no signs of trauma. EYES: PERRL, extraocular movements intact, sclera anicteric, conjunctiva clear. No ptosis. ENT: Ears normal, nares patent, oropharynx clear without exudates, moist mucous membranes. NECK: Trachea midline, full range of motion, supple. LUNGS: Breath sounds equal, clear to auscultation bilaterally, no wheezes, no crackles, no accessory muscle use. HEART: +irreg irreg rate and rhythm, S1, S2 without murmur, rub or gallop. ABDOMEN: Soft, nontender, nondistended, normoactive bowel sounds, no guarding EXTREMITIES: 2+ pt pulses, warm, well-perfused, no edema. NEUROLOGICAL: Cranial nerves II through XII grossly intact. Laboratory Results 01/09/19 01/09/19 01/09/19 06:19 06:19 06:19 WBC 7.8 RBC 4.19 Hgb 13.6 Hct 40.9 MCV 97.6 H MCH 32.5 MCHC 33.3 RDW 15.5 Plt Count 151 MPV 12.1 H Absolute Neuts (auto) 5.5 Neutrophils % 69.9 Lymphocytes % 16.0 D Monocytes % 11.0 H Eosinophils % 2.3 Basophils % 0.8 Nucleated RBC % 0 PTT (Actin FS) 51.0 H Sodium 141 Potassium 4.0 Chloride 106 Carbon Dioxide 27 Anion Gap 7 L BUN 23 H Creatinine 1.2 Est GFR (CKD-EPI)AfAm 71.58 Est GFR (CKD-EPI)NonAf 61.76 Random Glucose 85 Calcium 8.7 Total Bilirubin 1.0 AST 20 ALT 25 Alkaline Phosphatase 110 Creatine Kinase 57 Troponin I 0.10 H Total Protein 6.4 Albumin 3.0 L TSH 2.97 D ASSESSMENT/PLAN: 68 year old male with history of irregular heart rate, presented with 4 month history of worsening SOB, worse on exertion, and 2 week history of progressing LE edema. In ED, he was found to be in Afib with RVR. #new afib with RVR possible 2/2 CHF -s/p lopressor 5mg IVP overnight -c/w rate control coreg 6.25 BID as per cardio; changed from 12.5 BID -started on eliquis 5 BID. hep gtt has been d/c -stress test unable to be completed today 2/2 hypotension -for LISANDRA, cardioversion today. as per cardio, if converts to sinus and not in HF tomorrow, may be able to d/c. -cardio: Dr. Martínez #Acute systolic CHF -improved vol status today. changed from IV Lasix 40 BID to 40 PO BID d/t hypotension from stress test -daily wts, i/o, na control #hyperthyroid with elevated tsh -f/u repeat labwork; free t3, t4 -endocrine: Dr. Lima #hyperbilirubinemia likely 2/2 gilbert's -c/t monitor #bilat renal cysts -outpt uro f/u #F/E/N no IVF; CHF continue to follow lytes NPO #PPX eliquis 5mg BID #dispo cont to monitor on tele plan: as per cardio, if converts to sinus and not in HF tomorrow, may be able to d/c. Visit type - Emergency Visit Emergency Visit: No - New Patient This patient is new to me today: No - Critical Care Critical Care patient: No
[2019-01-09] MEDS ORDERED: LIDOCAINE VISCOUS 2% ORAL/TOP 20 ML UNIT-DOSE CUP ONE (16:18)
[2019-01-09] MEDS ORDERED: AMIODARONE HCL 200 MG TABLET (FP) PO ONE (18:04)
--- NOTE | 2019-01-09 18:37 | CONSULT ---
Consult Consult Specialty:: ICU Referred by:: DR Martínez Reason for Consultation:: Post LISANDRA and attempted cardioversion hypotension and tachycardia - History of Present Illness Chief Complaint: Hypotension/tachycardia History of Present Illness: Pt is a 68 yo M with history of irregular heart rate, presented with SOB [id number], LE edema x2 weeks found to be in new Afib with RVR with cardiomyopathy and brought into the ICU for monitoring for hypotension and tachycardia after attempted cardioversion. Pt's heart rate was reported to go up to 180 after attempted cardioversion, with SBP in the 60s. Pt had received light anesthesia with propofol and received 1L of NS in PACU. He was also started on epinephrine in PACU. Per [employer] field technician, Dr Martínez, patient's EF is in the 30s and so recommended no IVFs , dobutamine drip, if needed. Patient is currently awake , alert and conversant. Reports hypertension in past that was never treeated and family hx of hypotension. Has never reacted to anesthesia. - History Source History Provided By: Patient, Caregiver Limitations to Obtaining History: No Limitations - Past Medical History Cardio/Vascular: Yes: AFIB, HTN, Murmur - Alcohol/Substance Use Hx Alcohol Use: No History of Substance Use: reports: None - Smoking History Smoking history: Unknown if ever smoked Have you smoked in the past 12 months: No - Social History ADL: Independent Home Medications - Allergies Allergies/Adverse Reactions: Allergies Allergy/AdvReac Type Severity Reaction Status Date / Time No Known Allergies Allergy Verified 01/06/19 20:07 - Home Medications Home Medications: Ambulatory Orders NK [No Known Home Medication] 01/06/19 Family Disease History - Family Disease History Other Family History: ? history of heart valve surgery Review of Systems - Review of Systems Constitutional: reports: No Symptoms Eyes: reports: No Symptoms HENT: reports: No Symptoms Cardiovascular: reports: No Symptoms. denies: Chest Pain Respiratory: reports: No Symptoms. denies: Cough Gastrointestinal: reports: No Symptoms. denies: Abdominal Pain Genitourinary: reports: No Symptoms Musculoskeletal: denies: Decreased ROM Neurological: denies: Change in LOC, Confusion, Numbness, Parasthesia Physical Exam Vital Signs: Vital Signs Temperature 97.5 F L 01/09/19 17:08 Pulse Rate 102 H 01/09/19 18:10 Respiratory Rate 01/09/19 18:10 Blood Pressure 84/68 L 01/09/19 18:10 O2 Sat by Pulse Oximetry (%) 97 01/09/19 18:10 Constitutional: Yes: Obese Eyes: Yes: Conjunctiva Clear, EOM Intact, PERRL HENT: Yes: Atraumatic Neck: Yes: Supple Cardiovascular: Yes: Tachycardia, S1, S2 Respiratory: Yes: CTA Bilaterally Gastrointestinal: Yes: Soft Edema: No Peripheral Pulses WNL: Yes Neurological: Yes: Alert, Oriented, Cran Nerves II-XII Intact. No: Aphasia, Confusion, Dysarthria, Lethargy, Loss of Sensation, Numbness ...Motor Strength: WNL Psychiatric: Yes: Alert, Oriented Labs: CBC, BMP 01/09/19 06:19 01/09/19 06:19 Imaging - Results Other: Report Reviewed (LISANDRA) Assessment/Plan CBC, BMP 01/09/19 06:19 01/09/19 06:19 Ambulatory Orders NK [No Known Home Medication] 01/06/19 Current Medications Amiodarone HCl (Cordarone -) 200 mg PO BID [facility] Apixaban (Eliquis -) 5 mg PO BID [facility] Last Admin: 01/09/19 09:46 Dose: Not Given Assessment/Plan: Pt is a 68 yo M hx of hyperthyroidism, Gilbert's disease, b/l renal cysts, CHF, new onset Afib with RVR with cardiomyopathy, brought to the ICU for monitoring for hypotension and tachycardia after attempted cardioversion for rapid afib. Neuro: Pt alert and oriented Able to protect airawy On NC Cardiology: s/p attempted cardioversion for new afib with cardiomyopathy #Hypotension: received light anesthesia with propofol for LISANDRA Pt with cardiomyopathy and new onset afib Recieved phenylephrine in PACU and 1L of fluids pressor - to avoid worsening tachycardia and fluids stopped- with low EF MAP- maintained above 65, would use dobutamine per cardio if support needed to reduced tachycardia #Afib Cont eliqiuis Cont amiodarone po #Tachycardia In rapid Afib up to 180s post attempted cardioversion Pt received adenosine Pt received 7 shocks Avoid vasopressors as much as possible, except for dobutamine if needed Monitor #Acute systolic CHF With global LV hypokinesis with EF- 25-30 Hold lasix in hypotension Avoid fluids for now Respiratory: Patient on NC Maintain Sats >90 Not in respiratory distress Endo: #hyperthyroid with elevated tsh endocrine: Dr. Lima GI #hyperbilirubinemia likely 2/2 gilbert's c/t monitor Sodium controlled diet Renal: #FRANKIE- improving Cont to monitor #bilat renal cysts outpt uro f/u FEN: No standing fluids Monitor lytes replete as needed Sodium controlled diet Dispo: ICU level care Visit type - Emergency Visit Emergency Visit: Yes ED Registration Date: 01/07/19 Care time: The patient presented to the Emergency Department on the above date and was hospitalized for further evaluation of their emergent condition. - New Patient This patient is new to me today: Yes Date on this admission: 01/09/19 - Critical Care Critical Care patient: Yes Total Critical Care Time (in minutes): 40 Critical Care Statement: The care of this patient involved high complexity decision making to prevent further life threatening deterioration of the patient 's condition and/or to evaluate & treat vital organ system(s) failure or risk of failure.
--- NOTE | 2019-01-09 19:26 | ECHO ---
Name: PANETTA, ADELINE J Exam:Transesophageal Echocardiogram Study Date: 01/09/2019 04:27 PM Age: 68 yrs Reason For Study: CARDIO VERSION Height: 70 in Weight: 240 lb BSA: 2.3 m2 Procedure: A 2D transesophageal echocardiogram with Doppler and color flow Doppler was performed. Informed conse nt for Transesophageal Echocardiogram, and use of a contrast agent as needed, was obtained prior to the proc edure. The patient was brought to the endoscopy suite in a fasting state. An intravenous line was placed. A topical anesthetic agent was used for oropharangeal anesthesia. A bite block was inserted. IV concious sedati on was administered using propafol. A multifrequency, multiplane transesopheageal echocardiographic endoscop e was inserted and manipulated in the standard fashion to achieve multiplane views. The usual views were ob tained; basal, mid-esophageal, transgastric and aortic views. The patient's vital signs, including blood pres sure, heart rate, pulse oximetry and cardiac rhythm were monitored throughout the procedure and remained st able. The patient tolerated the procedure well without evidence of orophangeal or esophageal trauma. There were no complications. The patient was in atrial fibrillation with rapid ventricular response during the exam with a heart rate exceeding 100 bpm. Left Ventricle The left ventricle is mildly dilated. Left ventricular systolic function is severely reduced. Ejectio n Fraction = 25-30%. There is severe global hypokinesis of the left ventricle. Atria The left atrium is moderately dilated. No thrombus is detected in the left atrial appendage. No left atrial mass or thrombus visualized. The interatrial septum is intact with no evidence for an atrial septal d efect. Injection of contrast documented no interatrial shunt. Mitral Valve The mitral valve is grossly normal. There is mild mitral regurgitation. Tricuspid Valve The tricuspid valve is not well visualized, but is grossly normal. There is mild tricuspid regurgitat ion. Aortic Valve The aortic valve is trileaflet. There is mild to moderate aortic valve thickening. Probable mild to m oderate aortic stenosis. Pulmonic Valve The pulmonic valve is not well visualized. Great Vessels Small atherosclerotic plaque in descending thoracic aorta and aortic arch. Pericardium/Pluera There is no pericardial effusion. Interpretation Summary The left ventricle is mildly dilated. Left ventricular systolic function is severely reduced. There is severe global hypokinesis of the left ventricle. Ejection Fraction = 25-30%. The left atrium is moderately dilated. No thrombus is detected in the left atrial appendage. No left atrial mass or thrombus visualized. The interatrial septum is intact with no evidence for an atrial septal defect. Injection of contrast documented no interatrial shunt. There is mild mitral regurgitation. There is mild tricuspid regurgitation. The aortic valve is trileaflet. There is mild to moderate aortic valve thickening. Probable mild to moderate aortic stenosis. Small atherosclerotic plaque in descending thoracic aorta and aortic arch There is no pericardial effusion. Francisco Martínez MD 01/09/2019 07:26 PM
[2019-01-10 06:27] LABS: BASO % 0.6 % (0-2.0); EOS % 2.4 % (0-4.5); HEMOGLOBIN 13.6 GM/dL (11.7-16.9); LYMPH % 23.2 % (8-40); MCH 32.3 pg (25.7-33.7); MCHC 33.1 g/dl (32.0-35.9); MEAN CELL VOLUME 97.8 fl (80-96); MEAN PLT VOLUME 12.1 fl (7.5-11.1); MONO % 13.3 % (3.8-10.2); NEUT % 60.5 % (42.8-82.8); PLATELET COUNT 135 K/MM3 (134-434); RBC 4.19 M/mm3 (4.00-5.60); RDW 15.6 % (11.9-15.9); WHITE BLOOD COUNT 5.8 K/mm3 (4.0-10.0)
[2019-01-10 06:55] LABS: ALBUMIN 2.9 g/dl (3.4-5.0); BILIRUBIN,TOTAL 0.9 mg/dL (0.2-1); CALCIUM 8.8 mg/dL (8.5-10.1); CREATININE 1.3 mg/dL (0.55-1.3); MAGNESIUM 1.8 mg/dL (1.8-2.4); POTASSIUM 3.8 mmol/L (3.5-5.1); TOT PROT 6.1 g/dl (6.4-8.2)
--- NOTE | 2019-01-10 08:34 | PN ---
Progress Note, Physician Chief Complaint: Events noted Monitored in ICU overnight History of Present Illness: Patient was seen and examined. Awake and alert. Chart was reviewed Denies chest pain, SOB. AF with variable HR unsuccessful synchronized cardioversion yesterday. Also could not do nuclear perfusion scan yesterday morning due to persistent hypotension Post synchronized cardioversion, patient had further decrease in BP prompting ICU admission. Anesthesiologist gave Neosynephrine in Endo. Amiodarone was started Currently BP has increased to 100-110 systolic, but HR remains tachycardia at 110-130 bpm - Current Medication List Current Medications: Active Medications Amiodarone HCl (Cordarone -) 200 mg PO BID ADA Apixaban (Eliquis -) 5 mg PO BID [facility] Last Admin: 01/09/19 22:26 Dose: 5 mg - Objective Vital Signs: Vital Signs Temperature 97.8 F 01/10/19 08:16 Pulse Rate 126 H 01/10/19 08:16 Respiratory Rate 24 H 01/10/19 08:16 Blood Pressure 111/69 01/10/19 08:16 O2 Sat by Pulse Oximetry (%) 95 01/09/19 20:28 Eyes: Yes: PERRL HENT: Yes: Atraumatic Neck: Yes: Supple Cardiovascular: Yes: Tachycardia, Pulse Irregular, Murmur (SM), S1, S2 Respiratory: Yes: CTA Bilaterally Gastrointestinal: Yes: Normal Bowel Sounds, Soft. No: Tenderness Edema: Yes Edema: LLE: Trace, RLE: Trace Additional Findings/Remarks: - Review of Systems Constitutional: denies: Chills, Fever Cardiovascular: reports: Palpitations, Shortness of Breath. denies: Chest Pain Respiratory: reports: SOB, SOB on Exertion. denies: Cough, Hemoptysis, Orthopnea, PND, Wheezing Gastrointestinal: denies: Abdominal Pain, Constipation, Diarrhea, Melena, Nausea , Rectal Bleeding, Vomiting Genitourinary: denies: Dysuria, Hematuria Musculoskeletal: denies: Back Pain, Joint Pain Neurological: denies: Dizziness, Headache, Seizure, Syncope Labs: CBC, BMP 01/10/19 05:30 01/10/19 05:30 INR, PTT INR 1.38 (0.83-1.09) H 01/06/19 20:34 Problem List - Problems (1) Atrial fibrillation Code(s): I48.91 - UNSPECIFIED ATRIAL FIBRILLATION Qualifiers: Atrial fibrillation type: unspecified Qualified Code(s): I48.91 - Unspecified atrial fibrillation (2) Dyspnea Code(s): R06.00 - DYSPNEA, UNSPECIFIED Qualifiers: Dyspnea type: unspecified Qualified Code(s): R06.00 - Dyspnea, unspecified (3) CHF (congestive heart failure) Code(s): I50.9 - HEART FAILURE, UNSPECIFIED Qualifiers: Heart failure type: combined systolic and diastolic Heart failure chronicity: acute on chronic Qualified Code(s): I50.43 - Acute on chronic combined systolic (congestive) and diastolic (congestive) heart failure (4) Demand ischemia Code(s): I24.8 - OTHER FORMS OF ACUTE ISCHEMIC HEART DISEASE (5) Cardiomyopathy Code(s): I42.9 - CARDIOMYOPATHY, UNSPECIFIED Qualifiers: Cardiomyopathy type: unspecified Qualified Code(s): I42.9 - Cardiomyopathy , unspecified (6) NYHA class 2 heart failure with reduced ejection fraction Code(s): I50.20 - UNSPECIFIED SYSTOLIC (CONGESTIVE) HEART FAILURE Assessment/Plan 1. Dyspnea due to CHF and pleural effusion +/- reactive airway disease 2. Acute on chronic LV systolic failure (class 2 NYHA classification), dilated cardiomyopathy, etiology to be determined, ? tachycardia mediated, ? myopathy, ? CAD 3. AF with RVR 4. Demand ischemia 5. Hypokalemia PLAN: 1. Continue Eliquis 5 mg BID 2. Eventually increase Carvedilol to 12.5 mg BID and continue Losartan 25 mg QD. Continue Amiodarone. May give short term use of Digoxin for rate control but not favored 3. LISANDRA guided synchronized cardioversion was unsuccessful yesterday. May attempt again at a later time when he is loaded with Amiodarone 4. Further cardiac work up nuclear MPI (Pharmacologic) may be considered at some point or consider L & R cardiac catheterization instead 5. Will also need to assess whether he would need ICD especially if LVEF remains below 35% as primary prophylaxis 6. Continue Furosemide +/- Aldactone 7. Other option may be use of Entresto Further plans are to follow Francisco Martínez MD
[2019-01-10] MEDS ORDERED: DIGOXIN 0.5 MG/2 ML AMPUL IVPUSH ONE (08:41)
[2019-01-10] MEDS: APIXABAN 5 MG TABLET PO SCH ×2 (09:35→21:18)
[2019-01-10] MEDS: SPIRONOLACTONE 25 MG TABLET (FP) PO SCH (09:36)
[2019-01-10] MEDS: AMIODARONE HCL 200 MG TABLET (FP) PO SCH ×2 (09:37→21:18)
[2019-01-10] MEDS: CARVEDILOL 6.25 MG TABLET (FP) PO SCH ×2 (09:37→21:18)
[2019-01-10] MEDS: FUROSEMIDE 40 MG TABLET (FP) PO SCH (09:38)
[2019-01-10] MEDS: SACUBITRIL/VALSARTAN 24 MG-26 MG TABLET PO SCH ×2 (09:38→21:02)
[2019-01-10] MEDS ORDERED: FUROSEMIDE 40 MG TABLET (FP) PO SCH (10:00)
--- NOTE | 2019-01-10 10:12 | PN ---
Teaching Attending Note Name of Resident: Angel Trejo ATTENDING PHYSICIAN STATEMENT I saw and evaluated the patient. I reviewed the resident's note and discussed the case with the resident. I agree with the resident's findings and plan as documented. SUBJECTIVE: Patient seen and examined in the ICU. Awake and alert. Remains in AFib but rates are improved. No CP or SOB. Led edema is improving. Intake & Output 01/07/19 01/08/19 01/09/19 01/10/19 23:59 23:59 23:59 23:59 Intake Total 860 1144 250 Output Total 900 600 Balance -40 544 250 Weight 240 lb 12.8 oz 238 lb 238 lb Last Vital Signs Temp Pulse Resp BP Pulse Ox 97.8 F 136 H 25 H 113/94 95 01/10/19 08:16 01/10/19 09:35 01/10/19 08:22 01/10/19 08:22 01/10/19 08:22 Active Medications Amiodarone HCl (Cordarone -) 200 mg PO BID [facility] Last Admin: 01/10/19 09:37 Dose: 200 mg Apixaban (Eliquis -) 5 mg PO BID [facility] Last Admin: 01/10/19 09:35 Dose: 5 mg Carvedilol (Coreg -) 6.25 mg PO BID [facility] Last Admin: 01/10/19 09:37 Dose: 6.25 mg Furosemide (Lasix -) 40 mg PO DAILY [facility] Last Admin: 01/10/19 09:38 Dose: 40 mg Sacubitril/Valsartan (Entresto 24 Mg-26 Mg Tablet) 1 tab PO BID [facility] Last Admin: 01/10/19 09:38 Dose: 1 tab Spironolactone (Aldactone -) 25 mg PO DAILY [facility] Last Admin: 01/10/19 09:36 Dose: 25 mg Constitutional: Yes: NAD Eyes: Yes: Conjunctiva Clear, EOM Intact, PERRL HENT: Yes: Atraumatic Neck: Yes: Supple Cardiovascular: Yes: AFib, Tachycardia Respiratory: Yes: CTA Bilaterally Gastrointestinal: Yes: Soft Edema: No Peripheral Pulses WNL: Yes Neurological: Yes: Non-focal ...Motor Strength: WNL Psychiatric: Yes: Alert, Oriented Labs: Laboratory Results - last 24 hr 01/09/19 01/10/19 01/10/19 06:19 05:30 05:30 WBC RBC Hgb Hct MCV MCH MCHC RDW Plt Count MPV Absolute Neuts (auto) Neutrophils % Lymphocytes % Monocytes % Eosinophils % Basophils % Nucleated RBC % PTT (Actin FS) 31.1 Sodium 141 Potassium 3.8 Chloride 107 Carbon Dioxide 27 Anion Gap 7 L BUN 21 H Creatinine 1.3 Est GFR (CKD-EPI)AfAm 64.98 Est GFR (CKD-EPI)NonAf 56.06 Random Glucose 69 L Calcium 8.8 Phosphorus 4.0 Magnesium 1.8 Total Bilirubin 0.9 AST 23 ALT 23 Alkaline Phosphatase 109 Total Protein 6.1 L Albumin 2.9 L Free T3 2.6 Thyroid Peroxidase Ab 6 01/10/19 05:30 WBC 5.8 RBC 4.19 Hgb 13.6 Hct 41.0 MCV 97.8 H MCH 32.3 MCHC 33.1 RDW 15.6 Plt Count 135 MPV 12.1 H Absolute Neuts (auto) 3.5 Neutrophils % 60.5 Lymphocytes % 23.2 D Monocytes % 13.3 H Eosinophils % 2.4 Basophils % 0.6 Nucleated RBC % 0 PTT (Actin FS) Sodium Potassium Chloride Carbon Dioxide Anion Gap BUN Creatinine Est GFR (CKD-EPI)AfAm Est GFR (CKD-EPI)NonAf Random Glucose Calcium Phosphorus Magnesium Total Bilirubin AST ALT Alkaline Phosphatase Total Protein Albumin Free T3 Thyroid Peroxidase Ab Assessment/Plan Afib with RVR Hyperthyroidism Gilbert's disease Bilateral renal cysts CHF New onset Afib with RVR Cardiomyopathy Acute Systolic CHF Rate control per Cardiology O2 as needed Follow I & O Daily weight Lasix Entresto Aldactone Cardiac Telemetry monitoring Dr Flores
--- NOTE | 2019-01-10 10:17 | PN ---
Progress Note, Physician History of Present Illness: Patient seen and examined in ICU. No events overnight, no new complaints. Remains in afib on tele. - Current Medication List Current Medications: Active Medications Amiodarone HCl (Cordarone -) 200 mg PO BID [facility] Last Admin: 01/10/19 09:37 Dose: 200 mg Apixaban (Eliquis -) 5 mg PO BID [facility] Last Admin: 01/10/19 09:35 Dose: 5 mg Carvedilol (Coreg -) 6.25 mg PO BID [facility] Last Admin: 01/10/19 09:37 Dose: 6.25 mg Furosemide (Lasix -) 40 mg PO DAILY [facility] Last Admin: 01/10/19 09:38 Dose: 40 mg Sacubitril/Valsartan (Entresto 24 Mg-26 Mg Tablet) 1 tab PO BID [facility] Last Admin: 01/10/19 09:38 Dose: 1 tab Spironolactone (Aldactone -) 25 mg PO DAILY [facility] Last Admin: 01/10/19 09:36 Dose: 25 mg - Objective Vital Signs: Vital Signs Temperature 97.8 F 01/10/19 08:16 Pulse Rate 136 H 01/10/19 09:35 Respiratory Rate 25 H 01/10/19 08:22 Blood Pressure 113/94 01/10/19 08:22 O2 Sat by Pulse Oximetry (%) 95 01/10/19 08:22 Constitutional: Yes: Well Nourished, No Distress, Calm HENT: Yes: Atraumatic, Normocephalic Cardiovascular: Yes: Tachycardia, Pulse Irregular, S1, S2. No: Gallop, Murmur, Rub Respiratory: Yes: Regular, CTA Bilaterally Gastrointestinal: Yes: Normal Bowel Sounds, Soft Labs: CBC, BMP 01/10/19 05:30 01/10/19 05:30 INR, PTT INR 1.38 (0.83-1.09) H 01/06/19 20:34 Assessment/Plan Pt is a 68 yo M hx of hyperthyroidism, Gilbert's disease, b/l renal cysts, CHF, new onset Afib with RVR with cardiomyopathy, brought to the ICU for monitoring for hypotension and tachycardia after attempted cardioversion for rapid afib. Neuro: -A&Ox3 -no focal deficits Cardiology: -s/p attempted cardioversion for new afib with cardiomyopathy -period of hypotension w/ tachycardia after LISANDRA -s/p phenylepherine, amiodarone in PACU w/ 1L fluids; now titrated off -cardio onboard -c/w eliquis -c/w amiodarone Pulmonary: -no active issues Endo: -H/O hyperthyroidism -TSH WNL -endo onboard GI -No active issues Renal: -FRANKIE- improving FEN: -no fluids indicated -Monitor lytes replete as needed -Sodium controlled diet Prophy -on eliquis Dispo: -Stable for transfer to tele -d/w cardio
--- NOTE | 2019-01-10 12:59 | PN ---
Physical Exam: SUBJECTIVE: Pt had unsuccessful cardioversion which was complicated with periods of hypotension and thus pt was transferred to the ICU for monitoring. Pt 's blood pressure improved, however periods of RVR found on monitor. Pt currently is asymptomatic and reports not events overnight. He has no complaints today. OBJECTIVE: Vital Signs Period Temp Pulse Resp BP Sys/Vivas Pulse Ox Last 24 Hr 97.1 F-98.3 F 48-136 18-28 80-118/50-94 90-100 GENERAL: The patient is awake, alert, and fully oriented, in no acute distress. LUNGS: CTA bilaterally, no wheezes, no crackles, no accessory muscle use. HEART: irregularly irregular rhythm, S1, S2 without murmur ABDOMEN: Soft, nontender, nondistended, normoactive bowel sounds, no guarding EXTREMITIES: 2+ pt pulses, warm, well-perfused, no edema. NEUROLOGICAL: Cranial nerves II through XII grossly intact. Laboratory Results - last 24 hr 01/09/19 01/10/19 01/10/19 06:19 05:30 05:30 WBC RBC Hgb Hct MCV MCH MCHC RDW Plt Count MPV Absolute Neuts (auto) Neutrophils % Lymphocytes % Monocytes % Eosinophils % Basophils % Nucleated RBC % PTT (Actin FS) 31.1 Sodium 141 Potassium 3.8 Chloride 107 Carbon Dioxide 27 Anion Gap 7 L BUN 21 H Creatinine 1.3 Est GFR (CKD-EPI)AfAm 64.98 Est GFR (CKD-EPI)NonAf 56.06 Random Glucose 69 L Calcium 8.8 Phosphorus 4.0 Magnesium 1.8 Total Bilirubin 0.9 AST 23 ALT 23 Alkaline Phosphatase 109 Total Protein 6.1 L Albumin 2.9 L Free T3 2.6 Thyroid Peroxidase Ab 6 01/10/19 05:30 WBC 5.8 RBC 4.19 Hgb 13.6 Hct 41.0 MCV 97.8 H MCH 32.3 MCHC 33.1 RDW 15.6 Plt Count 135 MPV 12.1 H Absolute Neuts (auto) 3.5 Neutrophils % 60.5 Lymphocytes % 23.2 D Monocytes % 13.3 H Eosinophils % 2.4 Basophils % 0.6 Nucleated RBC % 0 PTT (Actin FS) Sodium Potassium Chloride Carbon Dioxide Anion Gap BUN Creatinine Est GFR (CKD-EPI)AfAm Est GFR (CKD-EPI)NonAf Random Glucose Calcium Phosphorus Magnesium Total Bilirubin AST ALT Alkaline Phosphatase Total Protein Albumin Free T3 Thyroid Peroxidase Ab Active Medications Generic Name Dose Route Start Last Admin Trade Name Robert PRN Reason Stop Dose Admin Amiodarone HCl 200 mg 01/10/19 10:00 01/10/19 09:37 Cordarone - PO 200 mg BID [facility] Administration Apixaban 5 mg 01/09/19 10:00 01/10/19 09:35 Eliquis - PO 5 mg BID [facility] Administration Carvedilol 6.25 mg 01/10/19 10:00 01/10/19 09:37 Coreg - PO 6.25 mg BID [facility] Administration Furosemide 40 mg 01/10/19 10:00 01/10/19 09:38 Lasix - PO 40 mg DAILY [facility] Administration Sacubitril/Valsartan 1 tab 01/10/19 10:00 01/10/19 09:38 Entresto 24 Mg-26 Mg Tablet PO 1 tab BID [facility] Administration Spironolactone 25 mg 01/10/19 10:00 01/10/19 09:36 Aldactone - PO 25 mg DAILY [facility] Administration ASSESSMENT/PLAN: New onset Afib s/p unsuccessful cardioversion Acute HFrEF Hyperthryoidism Hyperbilirubinemia Bilateral Renal Cysts --Pt currently asymptomatic with periods of RVR seen on monitoring --Pt started on Coreg 6.25mg BID PO to be titrated up to 12.5mg BID as tolerated for rate control --Continue 200mg BID Amiodarone --Cardiology on board --Eliquis 5mg BID PO to continue --Continue Lasix 40mg PO qdaily --Would likely benefit from ACEi --Pt will need cardiac catherization once stabilized; likely outpatient follow- up to dictate --Hyperbilirubinemia likely [place] --Abd US noted --Bilateral renal cysts found incidentally --Urology outpatient follow-up FEN: Fluids: None indicated Electrolyte abnormalities: None today Nutrition: Sodium-controlled diet PPX: DVT - Already on eliquis GI - Not indicated currently Dispo: Continue monitoring Case discussed with Dr. Steven Frazier, DO - IM PGY-2 Visit type - Emergency Visit Emergency Visit: Yes ED Registration Date: 01/07/19 Care time: The patient presented to the Emergency Department on the above date and was hospitalized for further evaluation of their emergent condition. - New Patient This patient is new to me today: Yes Date on this admission: 01/10/19 - Critical Care Critical Care patient: No
--- NOTE | 2019-01-10 13:02 | PN ---
Progress Note (short form) - Note Progress Note: Anesthesiology Post-op POD#1 s/p LISANDRA with attempted cardioversion under GA. Pt. doing well this morning with improved BP off of pressors now. Remains tachycardic with arrhythmia but otherwise stable. No anesthesia-related issues. 68 y.o. man with tachyarrhythmia but otherwise in stable condition. Continue management as per Cardiology.
--- NOTE | 2019-01-10 15:07 | PN ---
Teaching Attending Note Name of Resident: Prashant Frazier ATTENDING PHYSICIAN STATEMENT I saw and evaluated the patient. I reviewed the resident's note and discussed the case with the resident. I agree with the resident's findings and plan as documented. SUBJECTIVE: Dyspnea much improved. No CP/palpitations/Cough/Sputum/fever/ chills. OBJECTIVE: Afebrile, Hemodynamically Stable - Hypotensive during stress test yesterday necessitating halt of test as well as hypotension s/p attempted DC cardioversion requiring pressors. Last Vital Signs Temp Pulse Resp BP Pulse Ox 97.8 F 136 H 25 H 113/94 95 01/10/19 08:16 01/10/19 09:35 01/10/19 08:22 01/10/19 08:22 01/10/19 08:22 Heart - S1, S2, irregular, SM Lungs - reduced air entry at bases Abdomen - Soft, non-tender. Bowel Sounds normal. Extremities - bilateral LE edema ++. Laboratory Results - last 24 hr 01/09/19 01/10/19 01/10/19 06:19 05:30 05:30 WBC RBC Hgb Hct MCV MCH MCHC RDW Plt Count MPV Absolute Neuts (auto) Neutrophils % Lymphocytes % Monocytes % Eosinophils % Basophils % Nucleated RBC % PTT (Actin FS) 31.1 Sodium 141 Potassium 3.8 Chloride 107 Carbon Dioxide 27 Anion Gap 7 L BUN 21 H Creatinine 1.3 Est GFR (CKD-EPI)AfAm 64.98 Est GFR (CKD-EPI)NonAf 56.06 Random Glucose 69 L Calcium 8.8 Phosphorus 4.0 Magnesium 1.8 Total Bilirubin 0.9 AST 23 ALT 23 Alkaline Phosphatase 109 Total Protein 6.1 L Albumin 2.9 L Free T3 2.6 Thyroid Peroxidase Ab 6 01/10/19 05:30 WBC 5.8 RBC 4.19 Hgb 13.6 Hct 41.0 MCV 97.8 H MCH 32.3 MCHC 33.1 RDW 15.6 Plt Count 135 MPV 12.1 H Absolute Neuts (auto) 3.5 Neutrophils % 60.5 Lymphocytes % 23.2 D Monocytes % 13.3 H Eosinophils % 2.4 Basophils % 0.6 Nucleated RBC % 0 PTT (Actin FS) Sodium Potassium Chloride Carbon Dioxide Anion Gap BUN Creatinine Est GFR (CKD-EPI)AfAm Est GFR (CKD-EPI)NonAf Random Glucose Calcium Phosphorus Magnesium Total Bilirubin AST ALT Alkaline Phosphatase Total Protein Albumin Free T3 Thyroid Peroxidase Ab Current Medications Generic Name Dose Route Start Last Admin Trade Name Joceq PRN Reason Stop Dose Admin Amiodarone HCl 200 mg 01/10/19 10:00 01/10/19 09:37 Cordarone - PO 200 mg BID [facility] Administration Apixaban 5 mg 01/09/19 10:00 01/10/19 09:35 Eliquis - PO 5 mg BID [facility] Administration Carvedilol 6.25 mg 01/10/19 10:00 01/10/19 09:37 Coreg - PO 6.25 mg BID [facility] Administration Furosemide 40 mg 01/10/19 10:00 01/10/19 09:38 Lasix - PO 40 mg DAILY [facility] Administration Sacubitril/Valsartan 1 tab 01/10/19 10:00 01/10/19 09:38 Entresto 24 Mg-26 Mg Tablet PO 1 tab BID [facility] Administration Spironolactone 25 mg 01/10/19 10:00 01/10/19 09:36 Aldactone - PO 25 mg DAILY [facility] Administration ASSESSMENT AND PLAN: 68 year old male with history of irregular heart rate, presented with 4 month history of worsening SOB, worse on exertion, and 2 week history of rapidly progressing LE edema. In ED, he was found to be in Afib with RVR. NM Stress halted due to hypotension Episode of RVR and Hypotension s/p attempted LISANDRA Cardioversion. 1. Acute Systolic CHF, etiology unclear ?Dilated Cardiomyopathy versus RVR - induced. CXR - pulmonary congestion and cardiomegaly BNP 8151 Echo - severely dilated LV, global hypokinesis, depressed EF (25%), atrial septal aneurysm, severe MR TropI max 0.15 Responded well to IV Lasix 40mg BID - transitioned to oral Lasix. Cardiology evaluated - NM Stress abandoned due to hypotension; Hypotension and RVR developed s/p attempted LISANDRA Cardioversion today requiring inotropes. Started on BB (Coreg), ARB (Entresto), and Spironolactone. For Cardiac Cath at some point in the future as out-patient. 2. Newly recognized Atrial Fibrillation with RVR with Cardiogenic Shock s/p attempted unsuccessful DC cardioversion Still with RVR, weaned off inotropes Dobutamine and Epinephrine. Continue Coreg 6.25mg BID and Amiodarone. Heparin drip transitioned to Eliquis as per Cardiology. 3. Abnormal Thyroid Function Repeat TSH normal (previously elevated). Awaiting repeat free T4. Endocrinology consulted 3. Hyperbilirubinemia - mostly indirect, likley Gilbert's. Abdominal US negative for biliary pathology 4. Bilateral Renal Cysts - incidental finding on imaging - for out-patient Urology follow up. 5. Elevated GGT/Macrocytosis - etiology unclear. Fatty Liver on US. Denies Alcohol excess. 6. Hypokalemia - repleted. DVT Px - on Eliquis
[2019-01-11 06:21] LABS: BASO % 0.8 % (0-2.0); EOS % 3.1 % (0-4.5); HEMATOCRIT 41.8 % (35.4-49); HEMOGLOBIN 13.8 GM/dL (11.7-16.9); LYMPH % 24.5 % (8-40); MCH 32.5 pg (25.7-33.7); MCHC 33.2 g/dl (32.0-35.9); MEAN CELL VOLUME 98.2 fl (80-96); NEUT % 58.6 % (42.8-82.8); PLATELET COUNT 133 K/MM3 (134-434); RBC 4.26 M/mm3 (4.00-5.60); RDW 15.6 % (11.9-15.9); WHITE BLOOD COUNT 6.7 K/mm3 (4.0-10.0)
[2019-01-11 06:56] LABS: ALBUMIN 2.8 g/dl (3.4-5.0); BILIRUBIN,TOTAL 0.7 mg/dL (0.2-1); CALCIUM 8.2 mg/dL (8.5-10.1); CREATININE 1.2 mg/dL (0.55-1.3); MAGNESIUM 1.8 mg/dL (1.8-2.4); PHOSPHOROUS 3.2 mg/dL (2.5-4.9); POTASSIUM 3.7 mmol/L (3.5-5.1); TOT PROT 5.9 g/dl (6.4-8.2)
--- NOTE | 2019-01-11 07:15 | PN ---
Progress Note, Physician Chief Complaint: Events noted Monitored in ICU overnight Uneventful History of Present Illness: Patient was seen and examined. Awake and alert. Chart was reviewed Denies chest pain, SOB. AF with variable HR Tolerating therapy except BP at time low - Current Medication List Current Medications: Active Medications Amiodarone HCl (Cordarone -) 200 mg PO BID [facility] Last Admin: 01/10/19 21:18 Dose: 200 mg Apixaban (Eliquis -) 5 mg PO BID [facility] Last Admin: 01/10/19 21:18 Dose: 5 mg Carvedilol (Coreg -) 6.25 mg PO BID [facility] Last Admin: 01/10/19 21:18 Dose: 6.25 mg Furosemide (Lasix -) 40 mg PO DAILY [facility] Last Admin: 01/10/19 09:38 Dose: 40 mg Sacubitril/Valsartan (Entresto 24 Mg-26 Mg Tablet) 1 tab PO BID [facility] Last Admin: 01/10/19 21:02 Dose: Not Given Spironolactone (Aldactone -) 25 mg PO DAILY [facility] Last Admin: 01/10/19 09:36 Dose: 25 mg - Objective Vital Signs: Vital Signs Temperature 98.5 F 01/11/19 06:00 Pulse Rate 90 01/11/19 06:00 Respiratory Rate 21 H 01/11/19 06:00 Blood Pressure 94/75 01/11/19 06:00 O2 Sat by Pulse Oximetry (%) 96 01/10/19 21:00 Eyes: Yes: PERRL HENT: Yes: Atraumatic Neck: Yes: Supple Cardiovascular: Yes: Pulse Irregular, Murmur (Soft SM), S1, S2 Respiratory: Yes: CTA Bilaterally Gastrointestinal: Yes: Normal Bowel Sounds, Soft. No: Tenderness Edema: No Additional Findings/Remarks: - Review of Systems Constitutional: denies: Chills, Fever Cardiovascular: reports: Palpitations, Shortness of Breath. denies: Chest Pain Respiratory: reports: SOB, SOB on Exertion. denies: Cough, Hemoptysis, Orthopnea, PND, Wheezing Gastrointestinal: denies: Abdominal Pain, Constipation, Diarrhea, Melena, Nausea , Rectal Bleeding, Vomiting Genitourinary: denies: Dysuria, Hematuria Musculoskeletal: denies: Back Pain, Joint Pain Neurological: denies: Dizziness, Headache, Seizure, Syncope Labs: CBC, BMP 01/11/19 05:30 01/11/19 05:30 Problem List - Problems (1) Atrial fibrillation Code(s): I48.91 - UNSPECIFIED ATRIAL FIBRILLATION Qualifiers: Atrial fibrillation type: unspecified Qualified Code(s): I48.91 - Unspecified atrial fibrillation (2) Dyspnea Code(s): R06.00 - DYSPNEA, UNSPECIFIED Qualifiers: Dyspnea type: unspecified Qualified Code(s): R06.00 - Dyspnea, unspecified (3) CHF (congestive heart failure) Code(s): I50.9 - HEART FAILURE, UNSPECIFIED Qualifiers: Heart failure type: combined systolic and diastolic Heart failure chronicity: acute on chronic Qualified Code(s): I50.43 - Acute on chronic combined systolic (congestive) and diastolic (congestive) heart failure (4) Demand ischemia Code(s): I24.8 - OTHER FORMS OF ACUTE ISCHEMIC HEART DISEASE (5) Cardiomyopathy Code(s): I42.9 - CARDIOMYOPATHY, UNSPECIFIED Qualifiers: Cardiomyopathy type: unspecified Qualified Code(s): I42.9 - Cardiomyopathy , unspecified (6) NYHA class 2 heart failure with reduced ejection fraction Code(s): I50.20 - UNSPECIFIED SYSTOLIC (CONGESTIVE) HEART FAILURE Assessment/Plan 1. Dyspnea due to CHF and pleural effusion +/- reactive airway disease - improving 2. Acute on chronic LV systolic failure (class 2 NYHA classification), dilated cardiomyopathy, etiology to be determined, ? tachycardia mediated, ? myopathy, ? CAD 3. AF with RVR 4. Demand ischemia 5. Hypokalemia PLAN: 1. Continue Eliquis 5 mg BID 2. Continue Carvedilol 6.25 mg BID and Entresto 24/26 mg BID as tolerated. Continue Amiodarone 200 mg BID. 3. LISANDRA guided synchronized cardioversion was unsuccessful yesterday. May attempt again at a later time when he is loaded with Amiodarone 4. Further cardiac work up nuclear MPI (Pharmacologic) may be considered at some point or consider L & R cardiac catheterization instead 5. Will also need to assess whether he would need ICD especially if LVEF remains below 35% as primary prophylaxis 6. Continue Furosemide +/- Aldactone as tolerated 7. Monitor renal function and electrolytes Further plans are to follow Francisco Martínez MD
--- NOTE | 2019-01-11 09:26 | PN ---
Teaching Attending Note Name of Resident: Elliott Lu ATTENDING PHYSICIAN STATEMENT I saw and evaluated the patient. I reviewed the resident's note and discussed the case with the resident. I agree with the resident's findings and plan as documented. SUBJECTIVE: Patient seen and examined in the ICU. Awake and alert. Remains in AFib but rates are overall improved. Transient hypotension overnight. No CP or SOB. Led edema is improving. Intake & Output 01/08/19 01/09/19 01/10/19 01/11/19 23:59 23:59 23:59 23:59 Intake Total 860 1144 250 Output Total 900 600 600 Balance -40 544 -350 Weight 240 lb 12.8 oz 238 lb 238 lb 236 lb 12.8 oz Last Vital Signs Temp Pulse Resp BP Pulse Ox 98.5 F 96 H 18 96/76 96 01/11/19 06:00 01/11/19 08:00 01/11/19 08:00 01/11/19 08:00 01/11/19 08:32 Active Medications Amiodarone HCl (Cordarone -) 200 mg PO BID [facility] Last Admin: 01/10/19 21:18 Dose: 200 mg Apixaban (Eliquis -) 5 mg PO BID [facility] Last Admin: 01/10/19 21:18 Dose: 5 mg Carvedilol (Coreg -) 6.25 mg PO BID [facility] Last Admin: 01/10/19 21:18 Dose: 6.25 mg Furosemide (Lasix -) 40 mg PO DAILY [facility] Last Admin: 01/10/19 09:38 Dose: 40 mg Sacubitril/Valsartan (Entresto 24 Mg-26 Mg Tablet) 1 tab PO BID [facility] Last Admin: 01/10/19 21:02 Dose: Not Given Spironolactone (Aldactone -) 25 mg PO DAILY [facility] Last Admin: 01/10/19 09:36 Dose: 25 mg Constitutional: Yes: NAD Eyes: Yes: Conjunctiva Clear, EOM Intact, PERRL HENT: Yes: Atraumatic Neck: Yes: Supple Cardiovascular: Yes: AFib, Tachycardia Respiratory: Yes: CTA Bilaterally Gastrointestinal: Yes: Soft Edema: No Peripheral Pulses WNL: Yes Neurological: Yes: Non-focal ...Motor Strength: WNL Psychiatric: Yes: Alert, Oriented Labs: Laboratory Results - last 24 hr 05/01/11/19 01/11/19 05:30 05:30 05:30 WBC 6.7 RBC 4.26 Hgb 13.8 Hct 41.8 MCV 98.2 H MCH 32.5 MCHC 33.2 RDW 15.6 Plt Count 133 L MPV 12.0 H Absolute Neuts (auto) 3.9 Neutrophils % 58.6 Lymphocytes % 24.5 Monocytes % 13.0 H Eosinophils % 3.1 Basophils % 0.8 Nucleated RBC % 0 PTT (Actin FS) 38.1 H Sodium 140 Potassium 3.7 Chloride 108 H Carbon Dioxide 25 Anion Gap 7 L BUN 20 H Creatinine 1.2 Est GFR (CKD-EPI)AfAm 71.58 Est GFR (CKD-EPI)NonAf 61.76 Random Glucose 77 Calcium 8.2 L Phosphorus 3.2 Magnesium 1.8 Total Bilirubin 0.7 AST 21 ALT 25 Alkaline Phosphatase 107 Creatine Kinase 61 Troponin I 0.04 Total Protein 5.9 L Albumin 2.8 L Assessment/Plan Afib with RVR Hyperthyroidism Gilbert's disease Bilateral renal cysts CHF New onset Afib with RVR Cardiomyopathy Acute Systolic CHF Rate control per Cardiology O2 as needed Follow I & O Daily weight Lasix Entresto Aldactone Cardiac Telemetry monitoring Dr Flores
[2019-01-11] MEDS: SPIRONOLACTONE 25 MG TABLET (FP) PO SCH (09:39)
[2019-01-11] MEDS: AMIODARONE HCL 200 MG TABLET (FP) PO SCH ×2 (09:39→22:45)
[2019-01-11] MEDS: CARVEDILOL 6.25 MG TABLET (FP) PO SCH ×2 (09:39→22:45)
[2019-01-11] MEDS: APIXABAN 5 MG TABLET PO SCH ×2 (09:40→22:45)
[2019-01-11] MEDS ORDERED: POTASSIUM CHLORIDE TABS 20 MEQ TABLET.ER (FP) PO ONE (10:00)
[2019-01-11] MEDS ORDERED: MAGNESIUM SULF 50% (8.12 MEQ/2 ML-1 GM VIAL) IVPB ONE (10:00)
--- NOTE | 2019-01-11 10:26 | PN ---
Progress Note, Physician History of Present Illness: seen and examined at bedside. no acute overnight events. pt has no complaint. - Current Medication List Current Medications: Active Medications Amiodarone HCl (Cordarone -) 200 mg PO BID [facility] Last Admin: 01/11/19 09:39 Dose: 200 mg Apixaban (Eliquis -) 5 mg PO BID [facility] Last Admin: 01/11/19 09:40 Dose: 5 mg Carvedilol (Coreg -) 6.25 mg PO BID [facility] Last Admin: 01/11/19 09:39 Dose: 6.25 mg Furosemide (Lasix -) 40 mg PO DAILY [facility] Last Admin: 01/10/19 09:38 Dose: 40 mg Sacubitril/Valsartan (Entresto 24 Mg-26 Mg Tablet) 1 tab PO BID [facility] Last Admin: 01/10/19 21:02 Dose: Not Given Spironolactone (Aldactone -) 25 mg PO DAILY [facility] Last Admin: 01/11/19 09:39 Dose: 25 mg - Objective Vital Signs: Vital Signs Temperature 98 F 01/11/19 09:42 Pulse Rate 108 H 01/11/19 09:45 Respiratory Rate 16 01/11/19 09:45 Blood Pressure 79/65 L 01/11/19 09:45 O2 Sat by Pulse Oximetry (%) 96 01/11/19 08:32 Constitutional: Yes: No Distress, Calm Cardiovascular: Yes: Pulse Irregular, S1, S2. No: Murmur Respiratory: Yes: CTA Bilaterally Gastrointestinal: Yes: Normal Bowel Sounds, Soft. No: Tenderness Edema: No Neurological: Yes: Alert, Oriented Labs: CBC, BMP 01/11/19 05:30 01/11/19 05:30 INR, PTT INR 1.38 (0.83-1.09) H 01/06/19 20:34 Impression/Plan Impression/Plan: 68 yo M h/o hyperthyroidism, Gilbert's disease, b/l renal cysts, CHF, new onset Afib with RVR with cardiomyopathy brought to the ICU for monitoring for hypotension and tachycardia after attempted cardioversion for rapid afib. 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, repeat cardioversion, nuclear MPI Renal: stable - FRANKIE resolved FEN: -no fluids indicated -Monitor lytes replete as needed -Sodium controlled diet Prophy -on eliquis Dispo: -Stable for transfer to [place] Elliott Lu PGY3 Visit type - Emergency Visit Emergency Visit: No - New Patient This patient is new to me today: Yes Date on this admission: 01/11/19 - Critical Care Critical Care patient: Yes Total Critical Care Time (in minutes): 35 Critical Care Statement: The care of this patient involved high complexity decision making to prevent further life threatening deterioration of the patient 's condition and/or to evaluate & treat vital organ system(s) failure or risk of failure.
--- NOTE | 2019-01-11 13:10 | PN ---
Progress Note (short form) - Note Progress Note: SUBJECTIVE: Dyspnea much improved. No CP/palpitations/Cough/Sputum/fever/ chills. No lightheadedness/dizziness. OBJECTIVE: Afebrile, Hemodynamically Stable - Hypotensive during stress test necessitating halt of test as well as hypotension s/p attempted DC cardioversion requiring pressors. Hypotension persisting. Last Vital Signs Temp Pulse Resp BP Pulse Ox 98 F 94 H 16 82/62 L 96 01/11/19 11:00 01/11/19 11:00 01/11/19 11:01/11/19 11:00 01/11/19 08:32 Heart - S1, S2, irregular, SM Lungs - reduced air entry at bases Abdomen - Soft, non-tender. Bowel Sounds normal. Extremities - bilateral LE edema ++. Laboratory Results - last 24 hr 01/11/19 01/11/19 01/11/19 05:30 05:30 05:30 WBC 6.7 RBC 4.26 Hgb 13.8 Hct 41.8 MCV 98.2 H MCH 32.5 MCHC 33.2 RDW 15.6 Plt Count 133 L MPV 12.0 H Absolute Neuts (auto) 3.9 Neutrophils % 58.6 Lymphocytes % 24.5 Monocytes % 13.0 H Eosinophils % 3.1 Basophils % 0.8 Nucleated RBC % 0 PTT (Actin FS) 38.1 H Sodium 140 Potassium 3.7 Chloride 108 H Carbon Dioxide 25 Anion Gap 7 L BUN 20 H Creatinine 1.2 Est GFR (CKD-EPI)AfAm 71.58 Est GFR (CKD-EPI)NonAf 61.76 Random Glucose 77 Calcium 8.2 L Phosphorus 3.2 Magnesium 1.8 Total Bilirubin 0.7 AST 21 ALT 25 Alkaline Phosphatase 107 Creatine Kinase 61 Troponin I 0.04 Total Protein 5.9 L Albumin 2.8 L Current Medications Generic Name Dose Route Start Last Admin Trade Name Freq PRN Reason Stop Dose Admin Amiodarone HCl 200 mg 01/10/19 10:00 01/11/19 09:39 Cordarone - PO 200 mg BID ADA Administration Apixaban 5 mg 01/09/19 10:00 01/11/19 09:40 Eliquis - PO 5 mg BID ADA Administration Carvedilol 6.25 mg 01/10/19 10:00 01/11/19 09:39 Coreg - PO 6.25 mg BID ADA Administration Furosemide 40 mg 01/10/19 10:00 01/10/19 09:38 Lasix - PO 40 mg DAILY ADA Administration Sacubitril/Valsartan 1 tab 01/10/19 10:00 01/10/19 21:02 Entresto 24 Mg-26 Mg Tablet PO Not Given BID ADA Spironolactone 25 mg 01/10/19 10:00 01/11/19 09:39 Aldactone - PO 25 mg DAILY ADA Administration ASSESSMENT AND PLAN: 68 year old male with history of irregular heart rate, presented with 4 month history of worsening SOB, worse on exertion, and 2 week history of rapidly progressing LE edema. In ED, he was found to be in Afib with RVR. NM Stress halted due to hypotension Episode of RVR and Hypotension s/p attempted LISANDRA Cardioversion. 1. Acute Systolic CHF, etiology unclear - Dilated Cardiomyopathy versus RVR induced. CXR - pulmonary congestion and cardiomegaly BNP 8151 Echo - severely dilated LV, global hypokinesis, depressed EF (25%), atrial septal aneurysm, severe MR TropI max 0.15 Responded well to IV Lasix 40mg BID - transitioned to oral Lasix. Cardiology evaluated - NM Stress abandoned due to hypotension; Hypotension and RVR developed s/p attempted LISANDRA Cardioversion requiring inotropes. Started on BB (Coreg), Spironolactone, and Entresto (as tolerated) however BP borderline currently. Entresto held. For re-attempt at cardioversion and Cardiac Cath at some point in the future as out-patient. 2. Newly recognized Atrial Fibrillation with RVR with Cardiogenic Shock s/p attempted unsuccessful DC cardioversion Weaned off inotropes Dobutamine and Epinephrine. Continue Coreg 6.25mg BID and Amiodarone. Heparin drip transitioned to Eliquis as per Cardiology. 3. Abnormal Thyroid Function Repeat TSH normal (previously elevated). Awaiting repeat free T4. Endocrinology consulted 3. Hyperbilirubinemia - mostly indirect, likley Gilbert's. Abdominal US negative for biliary pathology 4. Bilateral Renal Cysts - incidental finding on imaging - for out-patient Urology follow up. 5. Elevated GGT/Macrocytosis - etiology unclear. Fatty Liver on US. Denies Alcohol excess. 6. Hypokalemia - repleted. 7. Macrocytosis - B12 and folate levels requested. DVT Px - on Eliquis Visit type - Emergency Visit Emergency Visit: Yes ED Registration Date: 01/07/19 Care time: The patient presented to the Emergency Department on the above date and was hospitalized for further evaluation of their emergent condition. - New Patient This patient is new to me today: No - Critical Care Critical Care patient: No - Discharge Referral Referred to [facility] No
[2019-01-11] MEDS: SACUBITRIL/VALSARTAN 24 MG-26 MG TABLET PO SCH ×2 (14:27→22:48)
[2019-01-11] MEDS ORDERED: PNEUMOC 13-VAL CONJ-DIP CRM/PF 0.5 ML DISP.SYRIN IM ONE (14:33)
[2019-01-11] MEDS: FUROSEMIDE 40 MG TABLET (FP) PO SCH (14:34)
[2019-01-12] MEDS ORDERED: MIDODRINE HCL 5 MG TABLET PO SCH ×3 (04:54→10:00)
[2019-01-12 06:43] LABS: HEMATOCRIT 41.3 % (35.4-49); HEMOGLOBIN 13.7 GM/dL (11.7-16.9); MCH 32.3 pg (25.7-33.7); MCHC 33.2 g/dl (32.0-35.9); MEAN CELL VOLUME 97.2 fl (80-96); MEAN PLT VOLUME 11.9 fl (7.5-11.1); PLATELET COUNT 148 K/MM3 (134-434); RBC 4.24 M/mm3 (4.00-5.60); RDW 15.4 % (11.9-15.9); WHITE BLOOD COUNT 7.5 K/mm3 (4.0-10.0)
[2019-01-12 07:07] LABS: CALCIUM 8.3 mg/dL (8.5-10.1); CREATININE 1.3 mg/dL (0.55-1.3); MAGNESIUM 1.9 mg/dL (1.8-2.4); POTASSIUM 3.7 mmol/L (3.5-5.1)
[2019-01-12] MEDS: SPIRONOLACTONE 25 MG TABLET (FP) PO SCH (09:36)
[2019-01-12] MEDS: CARVEDILOL 6.25 MG TABLET (FP) PO SCH ×2 (09:36→21:49)
[2019-01-12] MEDS: AMIODARONE HCL 200 MG TABLET (FP) PO SCH ×2 (09:36→21:49)
[2019-01-12] MEDS: FUROSEMIDE 40 MG TABLET (FP) PO SCH (09:37)
[2019-01-12] MEDS: SACUBITRIL/VALSARTAN 24 MG-26 MG TABLET PO SCH ×2 (09:37→23:00)
[2019-01-12] MEDS: APIXABAN 5 MG TABLET PO SCH ×2 (09:37→21:50)
[2019-01-12] MEDS ORDERED: MAGNESIUM SULF 50% (8.12 MEQ/2 ML-1 GM VIAL) IVPB ONE (10:06)
[2019-01-12] MEDS ORDERED: POTASSIUM CHLORIDE ORAL LIQUID 20 MEQ/15 ML PO ONE (10:06)
--- NOTE | 2019-01-12 10:09 | PN ---
Teaching Attending Note Name of Resident: Noni Shannon ATTENDING PHYSICIAN STATEMENT I saw and evaluated the patient. I reviewed the resident's note and discussed the case with the resident. I agree with the resident's findings and plan as documented. SUBJECTIVE: Patient seen and examined in the ICU. Awake and alert. Remains in AFib but rates are overall improved. Again with transient hypotension overnight. No CP or SOB. Led edema is improving. Intake & Output 01/09/19 01/10/19 01/11/19 01/12/19 23:59 23:59 23:59 23:59 Intake Total 1144 250 100 250 Output Total 706 136 6706 Balance 544 -350 -900 250 Weight 238 lb 238 lb 236 lb 12.8 oz 235 lb 4.8 oz Last Vital Signs Temp Pulse Resp BP Pulse Ox 97.9 F 110 H 16 88/67 L 95 01/12/19 08:59 01/12/19 08:00 01/12/19 08:00 01/12/19 08:00 01/12/19 08:55 Active Medications Amiodarone HCl (Cordarone -) 200 mg PO BID [facility] Last Admin: 01/12/19 09:36 Dose: 200 mg Apixaban (Eliquis -) 5 mg PO BID [facility] Last Admin: 01/12/19 09:37 Dose: 5 mg Carvedilol (Coreg -) 6.25 mg PO BID [facility] Last Admin: 01/12/19 09:36 Dose: 6.25 mg Furosemide (Lasix -) 40 mg PO DAILY [facility] Magnesium Sulfate (Magnesium Sulfate) 2 gm IVPB ONCE ONE Stop: 01/12/19 10:07 Potassium Chloride (Potassium Chloride Oral Liquid) 40 meq PO ONCE ONE Stop: 01/12/19 10:07 Sacubitril/Valsartan (Entresto 24 Mg-26 Mg Tablet) 1 tab PO BID [facility] Last Admin: 01/12/19 09:37 Dose: 1 tab Spironolactone (Aldactone -) 25 mg PO DAILY [facility] Last Admin: 01/12/19 09:36 Dose: 25 mg Constitutional: Yes: NAD Eyes: Yes: Conjunctiva Clear, EOM Intact, PERRL HENT: Yes: Atraumatic Neck: Yes: Supple Cardiovascular: Yes: AFib, Tachycardia Respiratory: Yes: CTA Bilaterally Gastrointestinal: Yes: Soft Edema: No Peripheral Pulses WNL: Yes Neurological: Yes: Non-focal ...Motor Strength: WNL Psychiatric: Yes: Alert, Oriented Labs: Laboratory Results - last 24 hr 01/11/19 01/12/19 01/12/19 05:30 05:30 05:30 WBC 7.5 RBC 4.24 Hgb 13.7 Hct 41.3 MCV 97.2 H MCH 32.3 MCHC 33.2 RDW 15.4 Plt Count 148 MPV 11.9 H PTT (Actin FS) 36.5 Sodium 140 Potassium 3.7 Chloride 108 H Carbon Dioxide 25 Anion Gap 7 L BUN 20 H Creatinine 1.2 Est GFR (CKD-EPI)AfAm 71.58 Est GFR (CKD-EPI)NonAf 61.76 Random Glucose 77 Calcium 8.2 L Phosphorus 3.2 Magnesium 1.8 Total Bilirubin 0.7 AST 21 ALT 25 Alkaline Phosphatase 107 Creatine Kinase 61 Troponin I 0.04 Total Protein 5.9 L Albumin 2.8 L Vitamin B12 467 Serum Folate 5 01/12/19 05:30 WBC RBC Hgb Hct MCV MCH MCHC RDW Plt Count MPV PTT (Actin FS) Sodium 139 Potassium 3.7 Chloride 106 Carbon Dioxide 27 Anion Gap 7 L BUN 18 Creatinine 1.3 Est GFR (CKD-EPI)AfAm 64.98 Est GFR (CKD-EPI)NonAf 56.06 Random Glucose 104 Calcium 8.3 L Phosphorus Magnesium 1.9 Total Bilirubin AST ALT Alkaline Phosphatase Creatine Kinase Troponin I Total Protein Albumin Vitamin B12 Serum Folate Assessment/Plan Afib with RVR Hyperthyroidism Gilbert's disease Bilateral renal cysts CHF New onset Afib with RVR Cardiomyopathy Acute Systolic CHF Rate control per Cardiology O2 as needed Follow I & O Daily weight Lasix Entresto Aldactone Cardiac Telemetry monitoring Dr Flores
--- NOTE | 2019-01-12 11:55 | PN ---
Physical Exam: SUBJECTIVE: Patient seen and examined. No acute events overnight. Pt. denies any complaints at this time. OBJECTIVE: Vital Signs Period Temp Pulse Resp BP Sys/Vivas Pulse Ox Last 24 Hr 97.8 F-98.2 F 89-115 16-29 73-120/59-89 95-98 GENERAL: The patient is awake, alert, and fully oriented, in no acute distress. HEAD: Normal with no signs of trauma. EYES: Extraocular movements intact, no scleral ictericus, conjunctiva clear. ENT: moist mucous membranes. NECK: Trachea midline, full range of motion, supple. LUNGS: No wheezes, Left lower lobe crackles, no accessory muscle use. HEART: Irregular rate and rhythm, S1, S2 without murmur ABDOMEN: Soft, nontender, nondistended, normoactive bowel sounds, no guarding, no rebound EXTREMITIES: 2+ dorsal pedal pulses, warm, no calf tenderness, no calf tenderness, dilated superficial veins in lower extremities, well-perfused, no edema. NEUROLOGICAL: Normal speech, gait not observed. PSYCH: Normal mood, normal affect. SKIN: Warm, dry, normal turgor, Laboratory Results - last 24 hr 01/11/19 01/12/19 01/12/19 05:30 05:30 05:30 WBC 7.5 RBC 4.24 Hgb 13.7 Hct 41.3 MCV 97.2 H MCH 32.3 MCHC 33.2 RDW 15.4 Plt Count 148 MPV 11.9 H PTT (Actin FS) 36.5 Sodium 140 Potassium 3.7 Chloride 108 H Carbon Dioxide 25 Anion Gap 7 L BUN 20 H Creatinine 1.2 Est GFR (CKD-EPI)AfAm 71.58 Est GFR (CKD-EPI)NonAf 61.76 Random Glucose 77 Calcium 8.2 L Phosphorus 3.2 Magnesium 1.8 Total Bilirubin 0.7 AST 21 ALT 25 Alkaline Phosphatase 107 Creatine Kinase 61 Troponin I 0.04 Total Protein 5.9 L Albumin 2.8 L Vitamin B12 467 Serum Folate 5 01/12/19 05:30 WBC RBC Hgb Hct MCV MCH MCHC RDW Plt Count MPV PTT (Actin FS) Sodium 139 Potassium 3.7 Chloride 106 Carbon Dioxide 27 Anion Gap 7 L BUN 18 Creatinine 1.3 Est GFR (CKD-EPI)AfAm 64.98 Est GFR (CKD-EPI)NonAf 56.06 Random Glucose 104 Calcium 8.3 L Phosphorus Magnesium 1.9 Total Bilirubin AST ALT Alkaline Phosphatase Creatine Kinase Troponin I Total Protein Albumin Vitamin B12 Serum Folate Active Medications Home Medications Medication Instructions Recorded NK [No Known Home Medication] 01/06/19 Current Medications Amiodarone HCl (Cordarone -) 200 mg PO BID [facility] Last Admin: 01/12/19 09:36 Dose: 200 mg Apixaban (Eliquis -) 5 mg PO BID [facility] Last Admin: 01/12/19 09:37 Dose: 5 mg Carvedilol (Coreg -) 6.25 mg PO BID [facility] Last Admin: 01/12/19 09:36 Dose: 6.25 mg Furosemide (Lasix -) 40 mg PO DAILY [facility] Sacubitril/Valsartan (Entresto 24 Mg-26 Mg Tablet) 1 tab PO BID [facility] Last Admin: 01/12/19 09:37 Dose: 1 tab Spironolactone (Aldactone -) 25 mg PO DAILY [facility] Last Admin: 01/12/19 09:36 Dose: 25 mg ASSESSMENT/PLAN: 68 yo M with a PMHx with a history of an "erratic heart beat" and "valve issue, presented to the ED because of worsening SOB and edema admitted for CHF and AFib. #New Onset CHF CXR with pulmonary congestion and cardiomegaly 1x Lasix 60mg given in ED Continue Lasix 40mg Daily PO w/ Aldactone if MAP is above 60 Cardio consulted: Dr. Martínez--> LISANDRA guided synchronized cardioversion unsuccessful , may reattempt and possible MPI vs. L+R catherization per cardiology, may need ICD placement for low EF pending repeat echo? Would strongly consider endomyocardial biopsy if Pt. to receive catherize Echo: LV mildly dilated with severe global hypokinesis and severely reduced function, severe MR, mod. TR, mild AR, LA + RA mod. dilated, mild aortic sclerosis EKG with Afib with RVR, potential Q waves V1 V2 V3 (anteroseptal leads) strict i/o's, daily weight Fluid and salt restriction d/c Losartan 25 mg--> c/w Entresto UTox - #New onset A-fib Chadvasc: 2, HAS-BLED: 1 c/w Eliquis d/c Lovenox d/c Lopressor 25mg TID started Coreg 6.25mg BID c/w Amiodarone 200mg BID Cardiology Consult appreciated #Hyperthyroidism- resolved Pt. has elevated TSH: 4.14(likely sick euthyroid syndrome) and elevated T3: 1.31 ( likely lab error) Rpt. TSH normal, f/u fT4(dialyzed) and TSI, fT3 and TPO wnl. Endocrinology consult appreciated--> likely lab error, low suspicion for overt hyperthyroidism as Pt. does not have other clinical features other than tachycardia/arrythmia #Elevated bilirubin/Jaundice-resolved/stable likely congestion from new CHF RUQ shows large left renal upper pole exophytic cyst 12.4 x 7.9 cm w/ internal echoes and questionable thin septation, small left exophytic cyst 2.9 cm, No biliary obstruction ovserved GGT: 185, TBili:1.8--> 2.1 (D. 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 #Tropinemia-resolved no chest pain, or sudden SOB, less likely ACS likely demand Trop: 0.12-->0.15-->0.09 #FRANKIE-resolving unknown baseline Cr. 1.4--> 1.3-->1.2 Likely cardiorenal syndrome if acute. c/w Lasix 40mg Daily PO and Aldactone if MAP is above 60 Urine electrolytes wnl #FEN 1L Fluid restriction monitor electrolytes and replete as needed sodium restricted diet #DVT Ppx. Eliquis 5mg BID Visit type - Emergency Visit Emergency Visit: Yes ED Registration Date: 01/07/19 Care time: The patient presented to the Emergency Department on the above date and was hospitalized for further evaluation of their emergent condition. - New Patient This patient is new to me today: No - Critical Care Critical Care patient: Yes Total Critical Care Time (in minutes): 45 Critical Care Statement: The care of this patient involved high complexity decision making to prevent further life threatening deterioration of the patient 's condition and/or to evaluate & treat vital organ system(s) failure or risk of failure. - Discharge Referral Referred to [facility].: No
--- NOTE | 2019-01-12 11:57 | PN ---
Physical Exam: SUBJECTIVE: Patient seen and examined. No chest pain, no SOB. Had asymptomatic hypotensive episodes at night in 70/50s. Was given a dose of midrodine to keep BP up per night team. Pt still pending tele bed. OBJECTIVE: Vital Signs Period Temp Pulse Resp BP Sys/Vivas Pulse Ox Last 24 Hr 97.8 F-98.2 F 89-115 16-29 73-120/59-89 95-98 Vital Signs Temp 97.9 F 01/12/19 08:59 Pulse 110 H 01/12/19 08:00 Resp 16 01/12/19 08:00 BP 88/67 L 01/12/19 08:00 Pulse Ox 95 01/12/19 08:55 Intake & Output 01/11/19 01/11/19 01/12/19 11:59 23:59 11:59 Intake Total 100 250 Output Total 1000 Balance -900 250 Weight 107.411 kg 106.73 kg Intake: IVPB 100 Oral 250 Output: Urine 1000 Void 1000 Other: Voiding Method Urinal Urinal # Unmeasured Voids Void 3 2 2 Bowel Movement Yes No # Bowel Movements 1 Weight Measurement Method Built in [facility] Built in [facility] GENERAL: The patient is awake, alert, and fully oriented, in no acute distress. EYES: PERRL, extraocular movements intact ENT: Ears normal, nares patent, oropharynx clear without exudates, moist mucous membranes. NECK: Trachea midline, full range of motion, supple. LUNGS: Breath sounds equal, clear to auscultation bilaterally, no wheezes, no crackles, no accessory muscle use. HEART: Irregular, S1, S2 ABDOMEN: Soft, nontender, nondistended, normoactive bowel sounds EXTREMITIES: 2+ pulses, warm, well-perfused, no edema. NEUROLOGICAL: Cranial nerves II through XII grossly intact. Normal speech, gait not observed. CBC, BMP 01/12/19 05:30 01/12/19 05:30 Laboratory Results - last 24 hr 01/11/19 01/12/19 01/12/19 05:30 05:30 05:30 WBC 7.5 RBC 4.24 Hgb 13.7 Hct 41.3 MCV 97.2 H MCH 32.3 MCHC 33.2 RDW 15.4 Plt Count 148 MPV 11.9 H PTT (Actin FS) 36.5 Sodium 140 Potassium 3.7 Chloride 108 H Carbon Dioxide 25 Anion Gap 7 L BUN 20 H Creatinine 1.2 Est GFR (CKD-EPI)AfAm 71.58 Est GFR (CKD-EPI)NonAf 61.76 Random Glucose 77 Calcium 8.2 L Phosphorus 3.2 Magnesium 1.8 Total Bilirubin 0.7 AST 21 ALT 25 Alkaline Phosphatase 107 Creatine Kinase 61 Troponin I 0.04 Total Protein 5.9 L Albumin 2.8 L Vitamin B12 467 Serum Folate 5 01/12/19 05:30 WBC RBC Hgb Hct MCV MCH MCHC RDW Plt Count MPV PTT (Actin FS) Sodium 139 Potassium 3.7 Chloride 106 Carbon Dioxide 27 Anion Gap 7 L BUN 18 Creatinine 1.3 Est GFR (CKD-EPI)AfAm 64.98 Est GFR (CKD-EPI)NonAf 56.06 Random Glucose 104 Calcium 8.3 L Phosphorus Magnesium 1.9 Total Bilirubin AST ALT Alkaline Phosphatase Creatine Kinase Troponin I Total Protein Albumin Vitamin B12 Serum Folate Active Medications Generic Name Dose Route Start Last Admin Trade Name Freq PRN Reason Stop Dose Admin Amiodarone HCl 200 mg 01/10/19 10:00 01/12/19 09:36 Cordarone - PO 200 mg BID ADA Administration Apixaban 5 mg 01/09/19 10:00 01/12/19 09:37 Eliquis - PO 5 mg BID ADA Administration Carvedilol 6.25 mg 01/10/19 10:00 01/12/19 09:36 Coreg - PO 6.25 mg BID ADA Administration Furosemide 40 mg 01/13/19 10:00 Lasix - PO DAILY [facility] Sacubitril/Valsartan 1 tab 01/10/19 10:00 01/12/19 09:37 Entresto 24 Mg-26 Mg Tablet PO 1 tab BID ADA Administration Spironolactone 25 mg 01/10/19 10:00 01/12/19 09:36 Aldactone - PO 25 mg DAILY ADA Administration ASSESSMENT/PLAN: Pt is a 68 yo M hx of hyperthyroidism, Gilbert's disease, b/l renal cysts, CHF, new onset Afib with RVR with cardiomyopathy, brought to the ICU for monitoring for hypotension and tachycardia after attempted cardioversion for rapid afib. Neuro: Pt alert and oriented Able to protect airway Off NC Cardiology: Pt appears to live in SBP <90, maintain for MAP >65 s/p attempted cardioversion for new afib with cardiomyopathy s/p adenosine and attempted cardioversion #Hypotension: s/p Phyenylephrine and 1L fluid in PACU, Pt resumed meds spironolactone, entresto, lasix with holding parameter for MAP <65, #Afib with tachycardia HR <120s Cont eliqiuis Cont amiodarone po #Acute systolic CHF With global LV hypokinesis with EF- 25-30 Avoid lasix in hypotension (MAP <65) Avoid fluids Respiratory: Patient on RA Maintain Sats >90 Not in respiratory distress Endo: Normalized tsh endocrine: Dr. Lima GI #hyperbilirubinemia likely 2/2 gilbert's c/t monitor Sodium controlled diet Renal: #FRANKIE- improving Cont to monitor #bilat renal cysts outpt uro f/u FEN: No standing fluids Monitor lytes replete as needed Sodium controlled diet Dispo: For tele transfer Visit type - Emergency Visit Emergency Visit: Yes ED Registration Date: 01/07/19 Care time: The patient presented to the Emergency Department on the above date and was hospitalized for further evaluation of their emergent condition. - New Patient This patient is new to me today: No - Critical Care Critical Care patient: Yes Total Critical Care Time (in minutes): 36 Critical Care Statement: The care of this patient involved high complexity decision making to prevent further life threatening deterioration of the patient 's condition and/or to evaluate & treat vital organ system(s) failure or risk of failure. - Discharge Referral Referred to [facility] No
--- NOTE | 2019-01-12 12:56 | PN ---
Teaching Attending Note Name of Resident: Joel Asif ATTENDING PHYSICIAN STATEMENT I saw and evaluated the patient. I reviewed the resident's note and discussed the case with the resident. I agree with the resident's findings and plan as documented. SUBJECTIVE: Dyspnea resolved. No orthopnea/PND. No CP/palpitations/Cough/Sputum/ fever/chills. No lightheadedness/dizziness. OBJECTIVE: Afebrile, Hypotension - Hypotensive during stress test necessitating halt of test as well as hypotension s/p attempted DC cardioversion requiring pressors. Hypotension persisting. Last Vital Signs Temp Pulse Resp BP Pulse Ox 97.9 F 110 H 16 88/67 L 95 01/12/19 08:59 01/12/19 08:00 01/12/19 08:00 01/12/19 08:00 01/12/19 08:55 Heart - S1, S2, irregular, SM Lungs - reduced air entry at bases Abdomen - Soft, non-tender. Bowel Sounds normal. Extremities - bilateral LE edema ++. Laboratory Results - last 24 hr 01/11/19 01/12/19 01/12/19 05:30 05:30 05:30 WBC 7.5 RBC 4.24 Hgb 13.7 Hct 41.3 MCV 97.2 H MCH 32.3 MCHC 33.2 RDW 15.4 Plt Count 148 MPV 11.9 H PTT (Actin FS) 36.5 Sodium 140 Potassium 3.7 Chloride 108 H Carbon Dioxide 25 Anion Gap 7 L BUN 20 H Creatinine 1.2 Est GFR (CKD-EPI)AfAm 71.58 Est GFR (CKD-EPI)NonAf 61.76 Random Glucose 77 Calcium 8.2 L Phosphorus 3.2 Magnesium 1.8 Total Bilirubin 0.7 AST 21 ALT 25 Alkaline Phosphatase 107 Creatine Kinase 61 Troponin I 0.04 Total Protein 5.9 L Albumin 2.8 L Vitamin B12 467 Serum Folate 5 01/12/19 05:30 WBC RBC Hgb Hct MCV MCH MCHC RDW Plt Count MPV PTT (Actin FS) Sodium 139 Potassium 3.7 Chloride 106 Carbon Dioxide 27 Anion Gap 7 L BUN 18 Creatinine 1.3 Est GFR (CKD-EPI)AfAm 64.98 Est GFR (CKD-EPI)NonAf 56.06 Random Glucose 104 Calcium 8.3 L Phosphorus Magnesium 1.9 Total Bilirubin AST ALT Alkaline Phosphatase Creatine Kinase Troponin I Total Protein Albumin Vitamin B12 Serum Folate Current Medications Generic Name Dose Route Start Last Admin Trade Name Freq PRN Reason Stop Dose Admin Amiodarone HCl 200 mg 01/10/19 10:00 01/12/19 09:36 Cordarone - PO 200 mg BID ADA Administration Apixaban 5 mg 01/09/19 10:00 01/12/19 09:37 Eliquis - PO 5 mg BID ADA Administration Carvedilol 6.25 mg 01/10/19 10:00 01/12/19 09:36 Coreg - PO 6.25 mg BID ADA Administration Furosemide 40 mg 01/13/19 10:00 Lasix - PO DAILY [facility] Sacubitril/Valsartan 1 tab 01/10/19 10:00 01/12/19 09:37 Entresto 24 Mg-26 Mg Tablet PO 1 tab BID ADA Administration Spironolactone 25 mg 01/10/19 10:00 01/12/19 09:36 Aldactone - PO 25 mg DAILY [facility] Administration ASSESSMENT AND PLAN: 68 year old male with history of irregular heart rate, presented with 4 month history of worsening SOB, worse on exertion, and 2 week history of rapidly progressing LE edema. In ED, he was found to be in Afib with RVR and with severe systolic CHF/Cardiomyopathy on subsequent Echo. NM Stress halted due to hypotension Episode of RVR and Hypotension s/p attempted LISANDRA Cardioversion. Hypotension persisting. 1. Acute Systolic CHF, etiology unclear - Dilated Cardiomyopathy versus RVR induced systolic dysfunction CXR - pulmonary congestion and cardiomegaly BNP 8151 Echo - severely dilated LV, global hypokinesis, depressed EF (25%), atrial septal aneurysm, severe MR TropI max 0.15 Responded well to IV Lasix 40mg BID - transitioned to oral Lasix. Cardiology evaluated - NM Stress abandoned due to hypotension; Hypotension and RVR also developed s/p attempted LISANDRA Cardioversion requiring inotropes. Started on BB (Coreg), Spironolactone, and Entresto (as tolerated) however BP continues to be borderline currently. Further management as per Cardiology, including ? need for ICD. For re-attempt at cardioversion and Cardiac Cath at some point in the future as out-patient. 2. Newly recognized Atrial Fibrillation with RVR with Cardiogenic Shock s/p attempted unsuccessful DC cardioversion Weaned off inotropes Dobutamine and Epinephrine. Continue Coreg 6.25mg BID and Amiodarone. Heparin drip transitioned to Eliquis as per Cardiology. 3. Abnormal Thyroid Function Repeat TSH normal (previously elevated). Awaiting repeat free T4. Endocrinology consulted 3. Hyperbilirubinemia - mostly indirect, likley Gilbert's. Abdominal US negative for biliary pathology 4. Bilateral Renal Cysts - incidental finding on imaging - for out-patient Urology follow up. 5. Elevated GGT/Macrocytosis - etiology unclear. Fatty Liver on US. Denies Alcohol excess. 6. Hypokalemia - repleted. 7. Macrocytosis - B12 - 467, Folate - 5. Will supplement with Folic Acid. DVT Px - on Eliquis
--- NOTE | 2019-01-12 14:04 | PN ---
Progress Note, Physician Chief Complaint: Events noted Monitored in ICU overnight Uneventful AF with periods of RVR History of Present Illness: Patient was seen and examined. Awake and alert. Chart was reviewed Denies chest pain, SOB. AF with variable HR Tolerating therapy except systolic BP at time low, but preserved MAP - Current Medication List Current Medications: Active Medications Amiodarone HCl (Cordarone -) 200 mg PO BID [facility] Last Admin: 01/12/19 09:36 Dose: 200 mg Apixaban (Eliquis -) 5 mg PO BID [facility] Last Admin: 01/12/19 09:37 Dose: 5 mg Carvedilol (Coreg -) 6.25 mg PO BID [facility] Last Admin: 01/12/19 09:36 Dose: 6.25 mg Folic Acid (Folic Acid -) 1 mg PO DAILY [facility] Furosemide (Lasix -) 40 mg PO DAILY [facility] Sacubitril/Valsartan (Entresto 24 Mg-26 Mg Tablet) 1 tab PO BID [facility] Last Admin: 01/12/19 09:37 Dose: 1 tab Spironolactone (Aldactone -) 25 mg PO DAILY [facility] Last Admin: 01/12/19 09:36 Dose: 25 mg - Objective Vital Signs: Vital Signs Temperature 97.9 F 01/12/19 08:59 Pulse Rate 110 H 01/12/19 13:12 Respiratory Rate 16 01/12/19 13:12 Blood Pressure 94/83 01/12/19 13:12 O2 Sat by Pulse Oximetry (%) 95 01/12/19 08:55 Eyes: Yes: EOM Intact, PERRL HENT: Yes: Atraumatic Neck: Yes: Supple Cardiovascular: Yes: Pulse Irregular, Murmur (SM), S1, S2 Respiratory: Yes: CTA Bilaterally Gastrointestinal: Yes: Normal Bowel Sounds, Soft. No: Tenderness Edema: No Additional Findings/Remarks: - Review of Systems Constitutional: denies: Chills, Fever Cardiovascular: reports: Palpitations, Shortness of Breath. denies: Chest Pain Respiratory: reports: SOB, SOB on Exertion. denies: Cough, Hemoptysis, Orthopnea, PND, Wheezing Gastrointestinal: denies: Abdominal Pain, Constipation, Diarrhea, Melena, Nausea , Rectal Bleeding, Vomiting Genitourinary: denies: Dysuria, Hematuria Musculoskeletal: denies: Back Pain, Joint Pain Neurological: denies: Dizziness, Headache, Seizure, Syncope Labs: CBC, BMP 01/12/19 05:30 01/12/19 05:30 Problem List - Problems (1) Atrial fibrillation Code(s): I48.91 - UNSPECIFIED ATRIAL FIBRILLATION Qualifiers: Atrial fibrillation type: unspecified Qualified Code(s): I48.91 - Unspecified atrial fibrillation (2) Dyspnea Code(s): R06.00 - DYSPNEA, UNSPECIFIED Qualifiers: Dyspnea type: unspecified Qualified Code(s): R06.00 - Dyspnea, unspecified (3) CHF (congestive heart failure) Code(s): I50.9 - HEART FAILURE, UNSPECIFIED Qualifiers: Heart failure type: combined systolic and diastolic Heart failure chronicity: acute on chronic Qualified Code(s): I50.43 - Acute on chronic combined systolic (congestive) and diastolic (congestive) heart failure (4) Demand ischemia Code(s): I24.8 - OTHER FORMS OF ACUTE ISCHEMIC HEART DISEASE (5) Cardiomyopathy Code(s): I42.9 - CARDIOMYOPATHY, UNSPECIFIED Qualifiers: Cardiomyopathy type: unspecified Qualified Code(s): I42.9 - Cardiomyopathy , unspecified (6) NYHA class 2 heart failure with reduced ejection fraction Code(s): I50.20 - UNSPECIFIED SYSTOLIC (CONGESTIVE) HEART FAILURE Assessment/Plan 1. Dyspnea due to CHF and pleural effusion +/- reactive airway disease - improving 2. Acute on chronic LV systolic failure (class 2 NYHA classification), dilated cardiomyopathy, etiology to be determined, ? tachycardia mediated, ? myopathy, ? CAD 3. AF with RVR 4. Demand ischemia 5. Hypokalemia PLAN: 1. Continue Eliquis 5 mg BID 2. Continue Carvedilol 6.25 mg BID and Entresto 24/26 mg BID as tolerated. Continue Amiodarone 200 mg BID. 3. May attempt synchronized cardioversion again at a later time when he is loaded with Amiodarone 4. Further cardiac work up nuclear MPI (Pharmacologic) may be considered at some point or consider L & R cardiac catheterization instead. These can be done as outpatient 5. Will also need to assess whether he would need ICD especially if LVEF remains below 35% as primary prophylaxis 6. Continue Furosemide +/- Aldactone as tolerated unless MAP is below 60 7. Monitor renal function and electrolytes Further plans are to follow Francisco Martínez MD
[2019-01-12] MEDS: FOLIC ACID 1 MG TABLET (FP) PO SCH (17:53)
[2019-01-13 06:25] LABS: HEMATOCRIT 42.6 % (35.4-49); HEMOGLOBIN 14.3 GM/dL (11.7-16.9); MCH 32.3 pg (25.7-33.7); MCHC 33.5 g/dl (32.0-35.9); MEAN CELL VOLUME 96.5 fl (80-96); MEAN PLT VOLUME 11.5 fl (7.5-11.1); PLATELET COUNT 147 K/MM3 (134-434); RBC 4.41 M/mm3 (4.00-5.60); RDW 15.6 % (11.9-15.9); WHITE BLOOD COUNT 6.5 K/mm3 (4.0-10.0)
[2019-01-13 06:46] LABS: ALBUMIN 2.8 g/dl (3.4-5.0); BILIRUBIN,TOTAL 0.7 mg/dL (0.2-1); CALCIUM 8.6 mg/dL (8.5-10.1); CREATININE 1.2 mg/dL (0.55-1.3); MAGNESIUM 2.7 mg/dL (1.8-2.4); PHOSPHOROUS 3.6 mg/dL (2.5-4.9); POTASSIUM 4.1 mmol/L (3.5-5.1); TOT PROT 6.1 g/dl (6.4-8.2)
--- NOTE | 2019-01-13 06:46 | PN ---
Progress Note (short form) - Note Progress Note: Chief Complaint: Events noted, notes reviewed, denies any chest pain or dyspnea , atrial fibrillation persists with periods of rapid ventricular response History of Present Illness: Seen and examined on telemetry. Events noted, notes reviewed, denies any chest pain or dyspnea, atrial fibrillation persists with periods of rapid ventricular response Echocardiography- TTE and LISANDRA reports noted severe LV systolic dysfunction, severe MR, moderate TR and mild to moderate Current Medications: Current Medications Amiodarone HCl (Cordarone -) 200 mg PO BID [facility] Last Admin: 01/12/19 21:49 Dose: 200 mg Apixaban (Eliquis -) 5 mg PO BID [facility] Last Admin: 01/12/19 21:50 Dose: 5 mg Carvedilol (Coreg -) 6.25 mg PO BID [facility] Last Admin: 01/12/19 21:49 Dose: 6.25 mg Folic Acid (Folic Acid -) 1 mg PO DAILY [facility] Last Admin: 01/12/19 17:53 Dose: 1 mg Furosemide (Lasix -) 40 mg PO DAILY [facility] Sacubitril/Valsartan (Entresto 24 Mg-26 Mg Tablet) 1 tab PO BID [facility] Last Admin: 01/12/19 23:00 Dose: Not Given Spironolactone (Aldactone -) 25 mg PO DAILY [facility] - Review of Systems Constitutional: denies: Chills, Fever Cardiovascular: As noted above Respiratory: denies: Cough, Hemoptysis, or Sputum Production Gastrointestinal: denies: Nausea, Vomiting, Diarrhea, Constipation or Abdominal Pain Genitourinary: denies: Dysuria, Hematuria Neurological: denies: Dizziness, Headache, Seizure or Syncope - Objective Vital Signs: Last Vital Signs Temp Pulse Resp BP Pulse Ox 97.4 F L 93 H 22 H 99/64 96 01/13/19 06:00 01/13/19 06:00 01/13/19 06:00 01/13/19 06:00 01/13/19 03:00 Intake & Output 01/10/19 01/11/19 01/12/19 01/13/19 23:59 23:59 23:59 23:59 Intake Total 631 746 7913 Output Total 600 1000 1900 200 Balance -350 -900 -480 -200 Weight 238 lb 236 lb 12.8 oz 235 lb 4.8 oz 235 lb 7 oz Neck: Supple Negative JVD No bruit Respiratory: Diminished breath sounds at the bases Cardiovascular: S1, S2 Irregularly Irregular Grade 2/6 SM Gastrointestinal: Soft Benign Normal Bowel Sounds Ext: Negative Edema Labs: CBC, BMP 01/13/19 05:30 01/13/19 05:30 Hepatic Panel Total Bilirubin 0.7 mg/dL (0.2-1) 01/13/19 05:30 Direct Bilirubin 0.5 mg/dL (0.0-0.2) H 01/07/19 10:10 AST 19 U/L (15-37) 01/13/19 05:30 ALT 23 U/L (13-61) 01/13/19 05:30 Alkaline Phosphatase 109 U/L (45-117) 01/13/19 05:30 Albumin 2.8 g/dl (3.4-5.0) L 01/13/19 05:30 INR, PTT INR 1.38 (0.83-1.09) H 01/06/19 20:34 Assessment/Plan ASSESSMENT: 1. Clinical presentation consistent with acute on chronic class II NYHA classification LV failure related to LV systolic dysfunction/dilated cardiomyopathy, etiology unclear tachycardia induced cardiomyopathy vs. ideopathic vs. ischemic 2. CAD with evidence of demand ischemic injury 3. Persistent atrial fibrillation with periods of rapid ventricular response [id number] score of 2 on Eliquis, failed cardioversion 4. Hypotension 5. Obesity PLAN: 1. Continue Eliquis considering the above noted [id number] score of 2 2. Continue Coreg and titrate dosage as needed hemodynamics permitting 3. Continue Entresto and titrate dosage as needed hemodynamics permitting 4. Continue Amiodarone loading 5. Continue Lasix and Aldactone hemodynamics permitting, with close monitoring of renal function 6. As outlined in the prior notes reattempt synchronized cardioversion after additional Amiodarone load, outpatient 7. Further cardiovascular evaluation is indicated including future nuclear ( Pharmacologic) MPI study and/or R & L cardiac catheterization coronary angiogrpahy, outpatient 8. Once patient is ready for D/C home Life-Vest utilization in view of the above noted LV systolic dysfunction pending LVEF reassessment in 90 days Above was reviewed in detail with the patient Steffanie Serrano MD
[2019-01-13] MEDS: APIXABAN 5 MG TABLET PO SCH ×2 (09:01→21:54)
[2019-01-13] MEDS: CARVEDILOL 6.25 MG TABLET (FP) PO SCH ×2 (09:01→21:54)
[2019-01-13] MEDS: AMIODARONE HCL 200 MG TABLET (FP) PO SCH ×2 (09:02→21:54)
[2019-01-13] MEDS: SPIRONOLACTONE 25 MG TABLET (FP) PO SCH (09:02)
[2019-01-13] MEDS: SACUBITRIL/VALSARTAN 24 MG-26 MG TABLET PO SCH ×2 (09:02→21:59)
[2019-01-13] MEDS: FUROSEMIDE 40 MG TABLET (FP) PO SCH (09:02)
[2019-01-13] MEDS: FOLIC ACID 1 MG TABLET (FP) PO SCH (09:02)
--- NOTE | 2019-01-13 10:24 | PN ---
Teaching Attending Note Name of Resident: Joel Asif ATTENDING PHYSICIAN STATEMENT I saw and evaluated the patient. I reviewed the resident's note and discussed the case with the resident. I agree with the resident's findings and plan as documented. SUBJECTIVE:asymptomatic. denies Cp, SOB, fever, chills, palpitations, N/v/C/D OBJECTIVE: Last Vital Signs Temp Pulse Resp BP Pulse Ox 97.4 F L 118 H 18 118/75 96 01/13/19 06:00 01/13/19 10:07 01/13/19 10:07 01/13/19 10:07 01/13/19 10:00 General NAD CV S1 S2 tachy Lungs CTA B/L no wheezing/rales/rhonchi ASSESSMENT AND PLAN: 68 year old male with history of irregular heart rate, presented with 4 month history of worsening SOB, worse on exertion, and 2 week history of rapidly progressing LE edema. In ED, he was found to be in Afib with RVR and with severe systolic CHF/Cardiomyopathy on subsequent Echo. 1. Acute Systolic CHF, etiology unclear - Dilated Cardiomyopathy versus RVR induced systolic dysfunction, will need life vest prior to discharge. unable to complete NMST due to hypotension. plan for R&L cardiac cath as outpatient. optimize heart failure regimen as much as hemodynamics permit. 2. Afib with RVR- with cardiogenic shock s/p unsuccessful cardioversion. on amio may need to adjust to optimize HR control. elevated [id number] on eliquis. cardio on board. cont cardiac monitoring. plan to re-attempt for cardioversion as outpatient 3. TSH- on repeat normal. awaiting TFT 4. B/L renal cysts- will need outpatient repeat imaging 5. Hyperbilirubinemia- worup negative 6. Hypokalemia- resolved 7. DVT ppx- eliquis 8. will need Life Vest prior to d/c. will d/w CM to be arranged.
--- NOTE | 2019-01-13 12:34 | PN ---
Physical Exam: SUBJECTIVE: Patient seen and examined. No acute events overnight. No complaints. OBJECTIVE: Vital Signs Period Temp Pulse Resp BP Sys/Vivas Pulse Ox Last 24 Hr 97.4 F-97.7 F 80-122 13-23 77-118/58-86 96-96 GENERAL: The patient is awake, alert, and fully oriented, in no acute distress. HEAD: Normal with no signs of trauma. EYES: Extraocular movements intact, no scleral ictericus, conjunctiva clear. ENT: moist mucous membranes. NECK: Trachea midline, full range of motion, supple. LUNGS: No wheezes, Left lower lobe crackles, no accessory muscle use. HEART: Irregular rate and rhythm, S1, S2 without murmur ABDOMEN: Soft, nontender, nondistended, normoactive bowel sounds, no guarding, no rebound EXTREMITIES: 2+ dorsal pedal pulses, warm, no calf tenderness, no calf tenderness, dilated superficial veins in lower extremities, well-perfused, no edema. NEUROLOGICAL: Normal speech, gait not observed. PSYCH: Normal mood, normal affect. SKIN: Warm, dry, normal turgor, Laboratory Results - last 24 hr 01/13/19 01/13/19 01/13/19 05:30 05:30 05:30 WBC 6.5 RBC 4.41 Hgb 14.3 Hct 42.6 MCV 96.5 H MCH 32.3 MCHC 33.5 RDW 15.6 Plt Count 147 MPV 11.5 H PTT (Actin FS) 36.4 Sodium 140 Potassium 4.1 Chloride 108 H Carbon Dioxide 23 Anion Gap 8 BUN 17 Creatinine 1.2 Est GFR (CKD-EPI)AfAm 71.58 Est GFR (CKD-EPI)NonAf 61.76 Random Glucose 82 Calcium 8.6 Phosphorus 3.6 Magnesium 2.7 H Total Bilirubin 0.7 AST 19 ALT 23 Alkaline Phosphatase 109 Total Protein 6.1 L Albumin 2.8 L Active Medications Home Medications Medication Instructions Recorded NK [No Known Home Medication] 01/06/19 Current Medications Amiodarone HCl (Cordarone -) 200 mg PO BID [facility] Last Admin: 01/13/19 09:02 Dose: 200 mg Apixaban (Eliquis -) 5 mg PO BID [facility] Last Admin: 01/13/19 09:01 Dose: 5 mg Carvedilol (Coreg -) 6.25 mg PO BID [facility] Last Admin: 01/13/19 09:01 Dose: 6.25 mg Folic Acid (Folic Acid -) 1 mg PO DAILY [facility] Last Admin: 01/13/19 09:02 Dose: 1 mg Furosemide (Lasix -) 40 mg PO DAILY [facility] Last Admin: 01/13/19 09:02 Dose: 40 mg Sacubitril/Valsartan (Entresto 24 Mg-26 Mg Tablet) 1 tab PO BID [facility] Last Admin: 01/13/19 09: Dose: 1 tab Spironolactone (Aldactone -) 25 mg PO DAILY [facility] Last Admin: 01/13/19 09:02 Dose: 25 mg ASSESSMENT/PLAN: 68 yo M with a PMHx with a history of an "erratic heart beat" and "valve issue, presented to the ED because of worsening SOB and edema admitted for CHF and AFib. #New Onset CHF CXR with pulmonary congestion and cardiomegaly 1x Lasix 60mg given in ED Continue Lasix 40mg Daily PO w/ Aldactone if MAP is above 60 Cardio consulted: Dr. Martínez--> LISANDRA guided synchronized cardioversion unsuccessful , may reattempt and possible MPI vs. L+R catherization per cardiology, may need ICD placement for low EF pending repeat echo as outpatient. Awaiting Life Vest for low EF--> Indications are for Pt.s w/ EF less than 35% with recent catherization. If EF remains below 35%or Pt. remains in persistent tachyarrythmia after 3 months, ICD implantation is recommended. Would strongly consider endomyocardial biopsy if Pt. to receive catherize Echo: LV mildly dilated with severe global hypokinesis and severely reduced function, severe MR, mod. TR, mild AR, LA + RA mod. dilated, mild aortic sclerosis EKG with Afib with RVR, potential Q waves V1 V2 V3 (anteroseptal leads) strict i/o's, daily weight Fluid and salt restriction d/c Losartan 25 mg--> c/w Entresto UTox - #New onset A-fib- stable Chadvasc: 2, HAS-BLED: 1 c/w Eliquis d/c Lovenox d/c Lopressor 25mg TID started Coreg 6.25mg BID c/w Amiodarone 200mg BID Cardiology Consult appreciated #Hyperthyroidism- resolved Pt. has elevated TSH: 4.14(likely sick euthyroid syndrome) and elevated T3: 1.31 ( likely lab error) Rpt. TSH normal, f/u fT4(dialyzed) and TSI, fT3 and TPO wnl. Endocrinology consult appreciated--> likely lab error, low suspicion for overt hyperthyroidism as Pt. does not have other clinical features other than tachycardia/arrythmia #Elevated bilirubin/Jaundice-resolved likely congestion from new CHF RUQ shows large left renal upper pole exophytic cyst 12.4 x 7.9 cm w/ internal echoes and questionable thin septation, small left exophytic cyst 2.9 cm, No biliary obstruction ovserved GGT: 185, TBili:1.8--> 2.1 (D. 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 #Tropinemia-resolved no chest pain, or sudden SOB, less likely ACS likely demand Trop: 0.12-->0.15-->0.09 #FRANKIE-resolving unknown baseline Cr. 1.4--> 1.3-->1.2 Likely cardiorenal syndrome if acute. c/w Lasix 40mg Daily PO and Aldactone if MAP is above 60 Urine electrolytes wnl #FEN 1L Fluid restriction monitor electrolytes and replete as needed sodium restricted diet #DVT Ppx. Eliquis 5mg BID Visit type - Emergency Visit Emergency Visit: Yes ED Registration Date: 01/07/19 Care time: The patient presented to the Emergency Department on the above date and was hospitalized for further evaluation of their emergent condition. - New Patient This patient is new to me today: No - Critical Care Critical Care patient: No - Discharge Referral Referred to [facility] Med P.C.: No
[2019-01-13 16:11] LABS: THYROID STIM IMMUNOGLOBULIN <0.10 IU/L (0.00-0.55)
[2019-01-14 08:25] LABS: ALBUMIN 2.9 g/dl (3.4-5.0); BILIRUBIN,TOTAL 0.6 mg/dL (0.2-1); CALCIUM 8.4 mg/dL (8.5-10.1); CREATININE 1.4 mg/dL (0.55-1.3); MAGNESIUM 2.4 mg/dL (1.8-2.4); POTASSIUM 4.3 mmol/L (3.5-5.1); TOT PROT 6.4 g/dl (6.4-8.2)
--- NOTE | 2019-01-14 10:29 | PN ---
Teaching Attending Note Name of Resident: Joel Asif ATTENDING PHYSICIAN STATEMENT I saw and evaluated the patient. I reviewed the resident's note and discussed the case with the resident. I agree with the resident's findings and plan as documented. SUBJECTIVE:asymptomatic. was feeling lethargic when his BP was in 80's yesterday but resolved. no symptoms since then. denies CP, SOB, fever, chills, palpitations, N/V/C/D OBJECTIVE: Last Vital Signs Temp Pulse Resp BP Pulse Ox 97.8 F 101 H 24 H 103/82 96 01/14/19 06:00 01/14/19 08:00 01/14/19 08:00 01/14/19 08:00 01/13/19 20:56 General NAD ASSESSMENT AND PLAN: 68 year old male with history of irregular heart rate, presented with 4 month history of worsening SOB, worse on exertion, and 2 week history of rapidly progressing LE edema. In ED, he was found to be in Afib with RVR and with severe systolic CHF/Cardiomyopathy on subsequent Echo. 1. Acute Systolic CHF, etiology unclear - Dilated Cardiomyopathy versus RVR induced systolic dysfunction, will need life vest prior to discharge. unable to complete NMST due to hypotension. plan for R&L cardiac cath as outpatient. optimize heart failure regimen as much as hemodynamics permit. 2. Afib with RVR- with cardiogenic shock s/p unsuccessful cardioversion. on amio may need to adjust to optimize HR control. elevated [id number] on eliquis. cardio on board. cont cardiac monitoring. plan to re-attempt for cardioversion as outpatient 3. FRANKIE- liekly bump from hypotensive episode yesterday. making good urine. will need monitoring while on new medications. will need repeat. explained to patient and verbalized agreement 3. TSH- on repeat normal. awaiting TFT 4. B/L renal cysts- will need outpatient repeat imaging 5. Hyperbilirubinemia- worup negative 6. Hypokalemia- resolved 7. DVT ppx- eliquis 8. medically optimized at this time. awaiting Life Vest placement.
[2019-01-14] MEDS: APIXABAN 5 MG TABLET PO SCH ×2 (10:48→21:13)
[2019-01-14] MEDS: FOLIC ACID 1 MG TABLET (FP) PO SCH (10:48)
[2019-01-14] MEDS: AMIODARONE HCL 200 MG TABLET (FP) PO SCH ×2 (10:53→21:13)
[2019-01-14] MEDS: FUROSEMIDE 40 MG TABLET (FP) PO SCH (11:15)
[2019-01-14] MEDS: CARVEDILOL 6.25 MG TABLET (FP) PO SCH ×2 (11:15→21:13)
[2019-01-14] MEDS: SPIRONOLACTONE 25 MG TABLET (FP) PO SCH (11:41)
[2019-01-14] MEDS: SACUBITRIL/VALSARTAN 24 MG-26 MG TABLET PO SCH ×2 (12:13→23:38)
--- NOTE | 2019-01-14 15:31 | PN ---
Physical Exam: SUBJECTIVE: Patient seen and examined. No acute events overnight. No complaints. OBJECTIVE: Vital Signs Period Temp Pulse Resp BP Sys/Vivas Pulse Ox Last 24 Hr 97.5 F-97.8 F 87-101 12-24 74-122/42-87 96-98 GENERAL: The patient is awake, alert, and fully oriented, in no acute distress. HEAD: Normal with no signs of trauma. EYES: Extraocular movements intact, no scleral ictericus, conjunctiva clear. ENT: moist mucous membranes. NECK: Trachea midline, full range of motion, supple. LUNGS: No wheezes, Left lower lobe crackles, no accessory muscle use. HEART: Irregular rate and rhythm, S1, S2 without murmur ABDOMEN: Soft, nontender, nondistended, normoactive bowel sounds, no guarding, no rebound EXTREMITIES: 2+ dorsal pedal pulses, warm, no calf tenderness, no calf tenderness, dilated superficial veins in lower extremities, well-perfused, no edema. NEUROLOGICAL: Normal speech, gait not observed. PSYCH: Normal mood, normal affect. SKIN: Warm, dry, normal turgor, Laboratory Results - last 24 hr 01/09/19 01/14/19 06:19 05:30 Sodium 141 Potassium 4.3 Chloride 107 Carbon Dioxide 26 Anion Gap 7 L BUN 22 H Creatinine 1.4 H Est GFR (CKD-EPI)AfAm 59.41 Est GFR (CKD-EPI)NonAf 51.26 Random Glucose 75 Calcium 8.4 L Magnesium 2.4 Total Bilirubin 0.6 AST 17 ALT 23 Alkaline Phosphatase 111 Total Protein 6.4 Albumin 2.9 L Thyroid Stim Immunoglob <0.10 Active Medications Home Medications Medication Instructions Recorded Amiodarone HCl [Cordarone -] 200 mg PO BID #60 tablet 01/14/19 Apixaban [Eliquis -] 5 mg PO BID #60 tablet 01/14/19 Carvedilol [Coreg -] 6.25 mg PO BID #60 tablet 01/14/19 Furosemide [Lasix -] 40 mg PO DAILY #30 tablet 01/14/19 Sacubitril/Valsartan [Entresto 24 1 tab PO BID #60 tablet 01/14/19 mg-26 mg Tablet] Spironolactone [Aldactone -] 25 mg PO DAILY #30 tablet 01/14/19 Current Medications Amiodarone HCl (Cordarone -) 200 mg PO BID [facility] Last Admin: 01/14/19 10:53 Dose: 200 mg Apixaban (Eliquis -) 5 mg PO BID [facility] Last Admin: 01/14/19 10:48 Dose: 5 mg Carvedilol (Coreg -) 6.25 mg PO BID [facility] Last Admin: 01/14/19 11:15 Dose: 6.25 mg Folic Acid (Folic Acid -) 1 mg PO DAILY [facility] Last Admin: 01/14/19 10:48 Dose: 1 mg Sacubitril/Valsartan (Entresto 24 Mg-26 Mg Tablet) 1 tab PO BID [facility] Last Admin: 01/14/19 12:13 Dose: Not Given Spironolactone (Aldactone -) 25 mg PO DAILY [facility] Last Admin: 01/14/19 11:41 Dose: Not Given ASSESSMENT/PLAN: 68 yo M with a PMHx with a history of an "erratic heart beat" and "valve issue, presented to the ED because of worsening SOB and edema admitted for CHF and AFib. #New Onset CHF CXR with pulmonary congestion and cardiomegaly 1x Lasix 60mg given in ED D/c Lasix 40mg Daily PO and D/c Aldactone as MAP were consistently low Cardio consulted: Dr. Martínez--> LISANDRA guided synchronized cardioversion unsuccessful , may reattempt and possible MPI vs. L+R catherization per cardiology, may need ICD placement for low EF pending repeat echo as outpatient. Awaiting Life Vest for low EF--> Indications are for Pt.s w/ EF less than 35% with recent catherization. If EF remains below 35% or Pt. remains in persistent tachyarrythmia after 3 months, ICD implantation is recommended. Would strongly consider endomyocardial biopsy if Pt. to receive catherize Echo: LV mildly dilated with severe global hypokinesis and severely reduced function, severe MR, mod. TR, mild AR, LA + RA mod. dilated, mild aortic sclerosis EKG with Afib with RVR, potential Q waves V1 V2 V3 (anteroseptal leads) strict i/o's, daily weight Fluid and salt restriction d/c Losartan 25 mg--> c/w Entresto 24/26 UTox - #New onset A-fib- stable Chadvasc: 2, HAS-BLED: 1 c/w Eliquis d/c Lovenox d/c Lopressor 25mg TID started Coreg 6.25mg BID c/w Amiodarone 200mg BID Cardiology Consult appreciated #Hyperthyroidism- resolved Pt. has elevated TSH: 4.14(likely sick euthyroid syndrome) and elevated T3: 1.31 ( likely lab error) Rpt. TSH normal, f/u fT4(dialyzed) and TSI, fT3 and TPO wnl. Endocrinology consult appreciated--> likely lab error, low suspicion for overt hyperthyroidism as Pt. does not have other clinical features other than tachycardia/arrythmia #Elevated bilirubin/Jaundice-resolved likely congestion from new CHF RUQ shows large left renal upper pole exophytic cyst 12.4 x 7.9 cm w/ internal echoes and questionable thin septation, small left exophytic cyst 2.9 cm, No biliary obstruction ovserved GGT: 185, TBili:1.8--> 2.1 (D. 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 #Tropinemia-resolved no chest pain, or sudden SOB, less likely ACS likely demand Trop: 0.12-->0.15-->0.09 #FRANKIE-resolving unknown baseline Cr. 1.4--> 1.3-->1.2 Likely cardiorenal syndrome if acute. D/c Lasix 40mg Daily PO and Aldactone Urine electrolytes wnl #FEN 1L Fluid restriction monitor electrolytes and replete as needed sodium restricted diet #DVT Ppx. Eliquis 5mg BID Visit type - Emergency Visit Emergency Visit: Yes ED Registration Date: 01/07/19 Care time: The patient presented to the Emergency Department on the above date and was hospitalized for further evaluation of their emergent condition. - New Patient This patient is new to me today: No - Critical Care Critical Care patient: No - Discharge Referral Referred to [facility] Med P.C.: No
--- NOTE | 2019-01-14 15:43 | PN ---
Progress Note, Physician History of Present Illness: Denies dyspnea, orthopnea, LE edema, near or true syncope. - Current Medication List Current Medications: Active Medications Amiodarone HCl (Cordarone -) 200 mg PO BID [facility] Last Admin: 01/14/19 10:53 Dose: 200 mg Apixaban (Eliquis -) 5 mg PO BID [facility] Last Admin: 01/14/19 10:48 Dose: 5 mg Carvedilol (Coreg -) 6.25 mg PO BID [facility] Last Admin: 01/14/19 11:15 Dose: 6.25 mg Folic Acid (Folic Acid -) 1 mg PO DAILY [facility] Last Admin: 01/14/19 10:48 Dose: 1 mg Furosemide (Lasix -) 40 mg PO DAILY [facility] Last Admin: 01/14/19 11:15 Dose: 40 mg Sacubitril/Valsartan (Entresto 24 Mg-26 Mg Tablet) 1 tab PO BID [facility] Last Admin: 01/14/19 12:13 Dose: Not Given Spironolactone (Aldactone -) 25 mg PO DAILY [facility] Last Admin: 01/14/19 11:41 Dose: Not Given - Objective Vital Signs: Vital Signs Temperature 97.5 F L 01/14/19 14:00 Pulse Rate 93 H 01/14/19 14:00 Respiratory Rate 12 01/14/19 14:00 Blood Pressure 74/42 L 01/14/19 14:00 O2 Sat by Pulse Oximetry (%) 98 01/14/19 09:00 Constitutional: Yes: No Distress, Calm Neck: Yes: Supple Cardiovascular: Yes: Pulse Irregular, Murmur (2/6 SM) Respiratory: Yes: Regular, Diminished Gastrointestinal: Yes: Soft, Hypoactive Bowel Sounds Edema: No (Warm and well-perfused) Labs: CBC, BMP 01/13/19 05:30 01/14/19 05:30 INR, PTT INR 1.38 (0.83-1.09) H 01/06/19 20:34 Problem List - Problems (1) Atrial fibrillation with RVR Code(s): I48.91 - UNSPECIFIED ATRIAL FIBRILLATION (2) Cardiomyopathy Code(s): I42.9 - CARDIOMYOPATHY, UNSPECIFIED Qualifiers: Cardiomyopathy type: unspecified Qualified Code(s): I42.9 - Cardiomyopathy , unspecified (3) Demand ischemia Code(s): I24.8 - OTHER FORMS OF ACUTE ISCHEMIC HEART DISEASE (4) NYHA class 2 heart failure with reduced ejection fraction Code(s): I50.20 - UNSPECIFIED SYSTOLIC (CONGESTIVE) HEART FAILURE Assessment/Plan Echocardiography- TTE and LISANDRA reports noted severe LV systolic dysfunction, severe MR, moderate TR and mild to moderate 1. Resolved acute on chronic class II NYHA classification LV failure related to LV systolic dysfunction/dilated cardiomyopathy, etiology unclear tachycardia induced cardiomyopathy vs. ideopathic vs. ischemic 2. CAD with evidence of demand ischemic injury 3. Persistent atrial fibrillation with periods of rapid ventricular response [id number] score of 2 on Eliquis, failed cardioversion 4. Hypotension 5. FRANKIE due to hemodynamic alterations PLAN: 1. Continue Eliquis 5 bid considering the above noted [id number] score of 2 2. Continue Coreg 6.25 bid and titrate dosage as needed hemodynamics permitting 3. Continue Entresto 24/26 bid and titrate dosage as needed hemodynamics permitting 4. Continue Amiodarone 200 bid loading 5. D/c Lasix 40 qd, may also have to d/c Aldactone 25 qd if hemodynamics are marginal, with close monitoring of renal function 6. As outlined in the prior notes reattempt synchronized cardioversion after additional Amiodarone load, outpatient 7. Further cardiovascular evaluation is indicated including future nuclear ( Pharmacologic) MPI study and/or R & L cardiac catheterization coronary angiography, outpatient 8. Once patient is ready for D/C home LifeVest utilization in view of the above noted LV systolic dysfunction pending LVEF reassessment in 90 days
[2019-01-14 15:46] VITALS: BMI 33.5
[2019-01-15 02:38] VITALS: TEMP 97.6
[2019-01-15 07:43] LABS: CALCIUM 8.7 mg/dL (8.5-10.1); CREATININE 1.2 mg/dL (0.55-1.3); MAGNESIUM 2.3 mg/dL (1.8-2.4); POTASSIUM 4.1 mmol/L (3.5-5.1)
[2019-01-15] MEDS: FOLIC ACID 1 MG TABLET (FP) PO SCH (09:29)
[2019-01-15] MEDS: APIXABAN 5 MG TABLET PO SCH (09:29)
[2019-01-15] MEDS: CARVEDILOL 6.25 MG TABLET (FP) PO SCH (09:29)
[2019-01-15] MEDS: AMIODARONE HCL 200 MG TABLET (FP) PO SCH (09:30)
--- NOTE | 2019-01-15 09:37 | PN ---
Progress Note, Physician History of Present Illness: Denies dyspnea, orthopnea, LE edema, near or true syncope. - Current Medication List Current Medications: Active Medications Amiodarone HCl (Cordarone -) 200 mg PO BID [facility] Last Admin: 01/15/19 09:30 Dose: 200 mg Apixaban (Eliquis -) 5 mg PO BID [facility] Last Admin: 01/15/19 09:29 Dose: 5 mg Carvedilol (Coreg -) 6.25 mg PO BID [facility] Last Admin: 01/15/19 09:29 Dose: 6.25 mg Folic Acid (Folic Acid -) 1 mg PO DAILY [facility] Last Admin: 01/15/19 09:29 Dose: 1 mg Sacubitril/Valsartan (Entresto 24 Mg-26 Mg Tablet) 1 tab PO BID [facility] Last Admin: 01/14/19 23:38 Dose: 1 tab Spironolactone (Aldactone -) 25 mg PO DAILY [facility] Last Admin: 01/14/19 11:41 Dose: Not Given - Objective Vital Signs: Vital Signs Temperature 97.6 F 01/15/19 02:00 Pulse Rate 91 H 01/15/19 06:00 Respiratory Rate 20 01/15/19 06:00 Blood Pressure 109/69 01/15/19 06:00 O2 Sat by Pulse Oximetry (%) 99 01/14/19 21:00 Constitutional: Yes: No Distress, Calm, Thin Neck: Yes: Supple Cardiovascular: Yes: Pulse Irregular Respiratory: Yes: Regular, CTA Bilaterally Gastrointestinal: Yes: Normal Bowel Sounds, Soft Edema: No Labs: CBC, BMP 01/13/19 05:30 01/15/19 05:30 INR, PTT INR 1.38 (0.83-1.09) H 01/06/19 20:34 - ....Imaging EKG: Report Reviewed (Tele: Rate-controlled afib) Problem List - Problems (1) Atrial fibrillation with RVR Code(s): I48.91 - UNSPECIFIED ATRIAL FIBRILLATION (2) Cardiomyopathy Code(s): I42.9 - CARDIOMYOPATHY, UNSPECIFIED Qualifiers: Cardiomyopathy type: unspecified Qualified Code(s): I42.9 - Cardiomyopathy , unspecified (3) Demand ischemia Code(s): I24.8 - OTHER FORMS OF ACUTE ISCHEMIC HEART DISEASE (4) NYHA class 2 heart failure with reduced ejection fraction Code(s): I50.20 - UNSPECIFIED SYSTOLIC (CONGESTIVE) HEART FAILURE Assessment/Plan Echocardiography- TTE and LISANDRA reports noted severe LV systolic dysfunction, severe MR, moderate TR and mild to moderate 1. Resolved acute on chronic class II NYHA classification LV failure related to LV systolic dysfunction/dilated cardiomyopathy, etiology unclear tachycardia induced cardiomyopathy vs. ideopathic vs. ischemic 2. CAD with evidence of demand ischemic injury 3. Persistent atrial fibrillation with periods of rapid ventricular response [id number] score of 2 on Eliquis, failed cardioversion 4. Hypotension 5. FRANKIE due to hemodynamic alterations PLAN: 1. Continue Eliquis 5 bid considering the above noted [id number] score of 2 2. Continue Coreg 6.25 bid and titrate dosage as needed hemodynamics permitting 3. Continue Entresto 24/26 bid and titrate dosage as needed hemodynamics permitting 4. Continue Amiodarone 200 bid loading 5. Continue Aldactone 25 qd as hemodynamics tolerate, with close monitoring of renal function 6. As outlined in the prior notes reattempt synchronized cardioversion after additional Amiodarone load, outpatient 7. Further cardiovascular evaluation is indicated including future nuclear ( Pharmacologic) MPI study and/or R & L cardiac catheterization coronary angiography as outpatient 8. Once patient is ready for D/C home LifeVest utilization in view of the above noted LV systolic dysfunction pending LVEF reassessment in 90 days
[2019-01-15] MEDS: SPIRONOLACTONE 25 MG TABLET (FP) PO SCH (10:03)
[2019-01-15] MEDS: SACUBITRIL/VALSARTAN 24 MG-26 MG TABLET PO SCH (10:03)
--- NOTE | 2019-01-15 10:58 | PN ---
Teaching Attending Note Name of Resident: Joel Asif ATTENDING PHYSICIAN STATEMENT I saw and evaluated the patient. I reviewed the resident's note and discussed the case with the resident. I agree with the resident's findings and plan as documented. SUBJECTIVE:asymptomatic. had no symptoms when his BP was low yesterday. deneis Cp, SOB, fever, chills, cough, N/V/C/D, pedal swelling OBJECTIVE: Last Vital Signs Temp Pulse Resp BP Pulse Ox 97.6 F 91 H 20 109/69 100 01/15/19 02:00 01/15/19 06:00 01/15/19 06:00 01/15/19 06:00 01/15/19 09:00 General NAD Lungs CTA B/L no wheezing/rales/rhonchi Extremities trace pitting edema ASSESSMENT AND PLAN: 68 year old male with history of irregular heart rate, presented with 4 month history of worsening SOB, worse on exertion, and 2 week history of rapidly progressing LE edema. In ED, he was found to be in Afib with RVR and with severe systolic CHF/Cardiomyopathy on subsequent Echo. 1. Acute Systolic CHF, etiology unclear - Dilated Cardiomyopathy versus RVR induced systolic dysfunction, will need life vest prior to discharge. unable to complete NMST due to hypotension. plan for R&L cardiac cath as outpatient. optimize heart failure regimen as much as hemodynamics permit. holding lasix and aldactone due to low BP. educated to check BP twice a day and weigh daily and notify cardiology if notes >2lbs weight gain as may need low dose diuretics if tolerates. 2. Afib with RVR- with cardiogenic shock s/p unsuccessful cardioversion. on amio may need to adjust to optimize HR control. elevated [id number] on eliquis. cardio on board. cont cardiac monitoring. plan to re-attempt for cardioversion as outpatient 3. FRANKIE- liekly bump from hypotensive episode. now trending down. will need monitoring while on new medications. will need repeat in 1 week 3. TSH- on repeat normal. awaiting TFT 4. B/L renal cysts- will need outpatient repeat imaging 5. Hyperbilirubinemia- worup negative 6. Hypokalemia- resolved 7. DVT ppx- eliquis 8. medically optimized at this time. awaiting Life Vest placement prior to discharge. awaiting insurance auth
[2019-01-15 14:15] VITALS: BP 92/61; PULSE 93
== END 2019-01-15 15:00 | disposition home or self-care (01) | DRG 314 ==
LOC: JER 20:00 → JERBED 23:55 → OBSVTOIN 01-07 00:04 → J4W 01-08 01:41 → JICU 01-09 18:19 → J2W 01-12 21:25
PROVIDERS: ADMIT Internal Medicine; ATTEND Internal Medicine
PROC: 5A2204Z Restoration of Cardiac Rhythm, Single (ICD-10-PCS; principal; 2019-01-12)
PROC: B246ZZ4 Ultrasonography of Right and Left Heart, Transesophageal (ICD-10-PCS; 2019-01-12)
DX: I42.0 Dilated cardiomyopathy (principal); I50.23 Acute on chronic systolic (congestive) heart failure; R57.0 Cardiogenic shock; R17 Unspecified jaundice; N17.9 Acute kidney failure, unspecified; I24.8 Other forms of acute ischemic heart disease; I48.1 Persistent atrial fibrillation; I11.0 Hypertensive heart disease with heart failure; E88.09 Other disorders of plasma-protein metabolism, not elsewhere classified; E05.90 Thyrotoxicosis, unspecified without thyrotoxic crisis or storm; D75.89 Other specified diseases of blood and blood-forming organs; N28.1 Cyst of kidney, acquired; I34.0 Nonrheumatic mitral (valve) insufficiency; I36.1 Nonrheumatic tricuspid (valve) insufficiency; I27.20 Pulmonary hypertension, unspecified; E87.6 Hypokalemia; I42.9 Cardiomyopathy, unspecified; E80.4 Gilbert syndrome; I95.9 Hypotension, unspecified; I35.0 Nonrheumatic aortic (valve) stenosis; I83.93 Asymptomatic varicose veins of bilateral lower extremities
CPT/HCPCS: 36415; 71045-TC-FY; 76705-TC; 80048; 80053; 80061; 80307; 81003; 82248; 82436; 82550; 82607; 82746; 82977; 83036; 83721; 83735; 83880; 84100; 84133; 84134; 84300; 84439; 84443; 84445; 84481; 84484; 85025; 85027; 85610; 85730; 86376; 93005; 93010; 93306-TC; 93312; 93325; 93970-TC; 99285-25; A9502; G0378; J1644